=== PATIENT | female | born 2005 | race Two or more races ===

== ENCOUNTER 2024-03-30 15:01 | Observation (INO) | payer MEDICAID, SELFPAY ==
--- NOTE | 2024-03-24 08:34 | EKG_ITS ---
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
[2024-03-24 09:13] VITALS: BMI 36.8
[2024-03-24 10:01] LABS: Collection Type, Urine Clean Catch
[2024-03-24 10:09] LABS: Basophils # (Auto) 0.1 Thou/mm3 (0.0-0.2); Basophils % (Auto) 1 % (0-2.5); Eosinophils # (Auto) 0.5 Thou/mm3 (0.0-0.5); Eosinophils % (Auto) 6 % (0-10); Hematocrit 42.3 % (36.0-46.0); Hemoglobin 13.7 g/dL (12.0-16.0); Immature Granulocytes % (Auto) 0 % (0-0); Immature Granulocytes Auto 0.03 Thou/mm3 (0.00-0.00); Lymphocytes # (Auto) 1.9 Thou/mm3 (1.0-4.8); Lymphocytes % (Auto) 22 % (10-50); Mean Corpuscular HGB Conc 32.4 g/dl (31.0-37.0); Mean Corpuscular Hemoglobin 25.1 pg (25.0-35.0); Mean Corpuscular Volume 78 fL (80-100); Monocytes # (Auto) 0.8 Thou/mm3 (0.0-0.8); Monocytes % (Auto) 9 % (0-12); Neutrophils # (Auto) 5.5 Thou/mm3 (1.8-7.7); Neutrophils % (Auto) 63 % (37-80); Nucleated Red Blood Cell % 0 /100 WBC (0); Platelet Count 430 Thou/mm3 (140-440); Red Blood Count 5.45 Miln/mm3 (4.00-5.20); White Blood Count 8.8 Thou/mm3 (4.5-11.0)
[2024-03-24 10:15] LABS: Bacteria,Urine Rare; Bilirubin,Urine Negative (Negative); Blood,Urine 3+ (Negative); Color,Urine Yellow (Lt Yel-Yel); Glucose, Urine Negative (Negative); Ketones,Urine Negative (Negative); Leukocyte Esterase,Urine Positive (Negative); Nitrite,Urine Negative (Negative); PH,Urine 6.5 (5.0-7.0); Protein,Urine Trace (Neg - Trace); RBC,Urine 4 /hpf (0-3); Specific Gravity,Urine 1.017 (1.001-1.035); Squamous Epithelial Cell,Urine 19 /hpf (0-5); Urobilinogen,Urine Negative mg/dL (0.0-1.0); WBC,Urine 14 /hpf (0-5)
[2024-03-24 10:17] LABS: Partial Thromboplastin Time 26.4 Seconds (22.0-36.0); Prothrombin Time 11.4 Seconds (9.0-12.2)
[2024-03-24 10:32] LABS: Clarity,Urine Hazy (Clear/Hazy)
[2024-03-24 10:43] LABS: Alanine Aminotransferase 34 U/L (10-49); Albumin, Serum 4.6 gm/dL (3.5-5.0); Albumin/Globulin Ratio 1.5 (1.2-2.2); Alkaline Phosphatase 79 U/L (46-116); Anion Gap 6 (7-16); Aspartate Amino Transferase 21 U/L (0-34); BUN/Creatinine Ratio 8 Ratio (12-20); Bilirubin,Total 0.7 mg/dL (0.3-1.2); Blood Urea Nitrogen 6 mg/dL (9-23); Calcium 9.5 mg/dL (8.3-10.6); Calcium (Corrected) 9.5 mg/dL (8.5-10.1); Carbon Dioxide 25.2 mMol/L (20.0-31.0); Chloride 105 mMol/L (98-107); Creatinine (Component) 0.8 mg/dL (0.6-1.3); Globulin 3.1 gm/dL (2.3-3.5); Glucose 114 mg/dL (74-106); Osmolality,Calculated 270 (275-295); Potassium 3.7 mMol/L (3.4-5.1); Sodium 136 mMol/L (136-145); Total Protein 7.7 gm/dL (5.7-8.2); eGFR > 60 See Note
[2024-03-24 11:08] LABS: HCG,Qualitative Serum Negative
--- NOTE | 2024-03-28 19:23 | PD.SURHP ---
HPI Date of Admission 03/29/2024 Chief Complaint Chief Complaint: Refractory GERD interferring with work duties. HPI This 18 yearts old female is brought to operating room because of GERD that is unresponsive to medical management and she is missing work because of that. She will undergo laparoscopic antireflux procedure with diaphragmatic hernia repair with implantation of a patch and Scarlett fundoplication and rarely but possible laparotomy. Informed consent was obtained. Past Medical History Past Medical History NEUROLOGIC: Positive Migraine; Negative Neurological Disorders or Seizures CARDIAC: Negative Cardiac Disorders or Congestive Heart Failure RESPIRATORY: Positive Asthma (USES INHALER PRN. LAST USED A MONTH AGO); Negative Chronic Obstructive Pulmonary Disease (COPD) GASTROINTESTINAL: Positive Gastrointestinal Disorders (n/v diarrhea, occassional hearturn, FATTY LIVER), Hiatal Hernia and Gastroesophageal Reflux Disease; Negative Hepatitis GENITOURINARY: Positive Genitourinary Disorders (scarring left kidney, PCOS); Negative Renal Disease REPRODUCTIVE: Negative Previous Pregnancies MUSCULOSKELETAL: Positive Musculoskeletal Disorders, Arthritis and Fractures (LEFT FOOT - WORE BOOT) ENT: Positive History of ENT Problems (FLUID BEHIND EARS AT TIMES) ENDOCRINE: Positive Endocrine Disorders and Diabetes Mellitus Type 2 (DIET CONTROLLED); Negative Diabetes Mellitus Type 1 HEMATOLOGIC: Positive Blood Disorders and Anemia PSYCHO/SOCIAL: Positive Bipolar Disorder, Depression and Anxiety OTHER HISTORY: Negative Falls, Blood Transfusions, Anesthesia Reactions (na), Chicken Pox, Measles, Mumps or Cancer Family History FAMILY HISTORY: Negative Family Anesthesia Reaction Social History SMOKING STATUS: Never smoker Travel History EBOLA RISK: No Meds Home Medications and Allergies Home Medications ?Medication ?Instructions ?Recorded ?Confirmed ?Type fluoxetine 20 mg capsule 40 mg PO DAILY 12/02/23 03/24/24 History olanzapine 5 mg tablet 10 mg PO HS 12/02/23 03/24/24 History Allergies Allergy/AdvReac Type Severity Reaction Status Date / Time pineapple Allergy Severe Swelling Verified 03/24/24 09:10 of Lip/Tongue/Throat milk Allergy Intermediate Hives Verified 03/24/24 09:10 Exam Constitutional Constitutional: no acute distress Routine HEENT Exam Head: Present normocephalic Eye: Present EOMI and PERRL ENT: Present mucous membranes moist Routine Neck Exam Neck: Present supple and trachea midline Routine Chest/Breast/Axilla Exam Chest wall: Absent tenderness or mass Routine Respiratory Exam Respiratory: Present chest non-tender, lungs clear, normal breath sounds and no resp distress; Absent respiratory distress Routine Cardiovascular Exam Cardiovascular: Present RRR Routine Abdominal Exam Abdominal: Present soft and normoactive bowel sounds Routine Extremities Exam Extremities: Present full ROM Routine Skin Exam Skin: Present intact, dry and warm Routine Neurological Exam Neurological: Present alert, oriented X3 and CN II-XII intact Routine Psychiatric Exam Psychiatric: Present normal affect and normal thought process Results Results: Laboratory Laboratory results: results reviewed Assessment & Plan Problem List (1) Erosive gastroesophageal reflux disease: Status: Acute (2) Hernia, hiatal: Status: Acute Plan Laparoscopic Hiatal Hernia repair implantation of a patch and Laparoscopic Scarlett fundoplication. Possible laparotomy. Informed consent was obtained. Quality Measures Quality Measures VTE prophylaxis
[2024-03-29] VITALS (19 sets, daily range): BP systolic 95–130; BP diastolic 57–94; PULSE 69–103; RESP 12–20; TEMP 36.1–36.4; O2SAT 96–99; BMI 36.7
[2024-03-29] MEDS: RINGERS LACTATED 1000 ML 1,000 ML 20 ML IV (07:02)
--- NOTE | 2024-03-29 11:00 | PD.SUROPNT ---
Date of Procedure 03/29/24 Pre Op Diagnosis Refractory gastroesophageal reflux and hiatal hernia Post Op Diagnosis Same. Procedure Laparoscopic diaphragmatic hernia repair with implantation of a phasic ST patch and 360 degree Scarlett fundoplication on March 29, 2024 Findings This patient had a 5 cm hiatal hernia. There were no other identifiable remarkable findings. Procedure Description Patient was interviewed in the preop holding area and the procedure was discussed in detail. Risk benefits and alternatives were also discussed and informed consent is obtained. The patient was then brought to the operating room by the nursing staff. The patient was positioned in supine position on the operating table. Gen. anesthesia was administered in a satisfactory manner. The patient was positioned in the modified lithotomy position in the [facility]. Patient was given prophylactic IV antibiotics half an hour before the procedure started. The Flowtron's are applied to both legs is anti-embolism mechanism. The chest abdomen and genitalia and the legs are prepped and draped in usual manner. An open laparoscopic procedure is carried out and balloon cannula is inserted through the supraumbilical incision. There were adhesions to the peritoneal side of the linea alba and lysis of adhesions was required to insert the balloon cannula. After that the pneumoperitoneum is achieved. The patient is positioned in the reverse Trendelenburg position. The 30? scope is used. Under direct vision a 5 mm cannula is inserted in the subxiphoid location, 10 mm cannula is inserted in the left midclavicular location, a 10 mm cannula is inserted in the left anterior axillary line and a 5 mm cannula is inserted in the right midclavicular line. A Perfecto retractor is used through the subxiphoid incision to retract the left lobe of the liver to the right side. The harmonic ultrasonic yvan are used to divide the gastrohepatic omentum. The dissection is carried out towards the diaphragmatic hiatus and the esophago-phrenic gastrophrenic and gastrosplenic ligaments are divided with the harmonic ultrasonic yvan. A retroesophageal window is created protecting the posterior vagus nerve and an umbilical tape is passed around the esophagus to be used as a retractor. Further dissection is carried out in the posterior mediastinum and the esophagus is further freed from the mediastinal structures and the esophagus is pulled down into the abdomen. The greater curvature of the stomach is examined and the short gastric vessels on the greater curvature were divided with harmonic ultrasonic yvan. The gastrosplenic ligaments are divided in a similar manner and the gastropancreatic ligaments are divided. After the greater curvature and the fundus is freed completely the examination is carried out in the retroesophageal space and small ligaments are divided. The hemostasis is already achieved. The hiatal hernia defect is examined carefully and it is repaired by intra and extracorporeal technique with a 3-0 Ethibond interrupted sutures. The diaphragmatic repair is carried out posterior to the esophagus. Enough space his left around the esophagus to avoid obstruction. At this point phasic's ST bioabsorbable patch was used and tailored in place and placed in an onlay manner over the diaphragmatic repair and sutured in place. Multiple sutures were taken on both the side of the esophagus between the diaphragm and the patch and also patch was sutured over the diaphragmatic repair. Now the Scarlett 360? fundoplication is carried out. The orogastric tube is removed and a 56 Luxembourgish Lord dilator is inserted into the esophagus and stomach by the anesthesiologist. This is used as an internal stent for calibration of the lumen. Now the freed fundus is brought around the esophagus from the left side behind the esophagus to the front on the right side and it is sutured to the left side of the fundus by intracorporeal and extracorporeal techniques using a 3-0 Ethibond interrupted sutures. There are 3 sutures placed to complete the fundoplication. The sutures passed through right and left side of the fundus as well as anterior wall of the esophagus. The Lord dilator is removed. Multiple Lembert stitchs are taken between the right and left side of the fundus to the esophagus. The operative field is thoroughly irrigated with saline solution and the hemostasis is achieved. The umbilical tape is divided and it is removed. The Interceed an anti-adhesion barrier is placed between the liver and the stomach. The Perfecto retractor is removed under direct vision. All the cannulas are removed under laparoscopic vision and there is no bleeding from the cannula site incisions. The balloon cannula is removed and the pneumoperitoneum is allowed to escape. The midline incision is closed in layers. The fascia is approximated by 2-0 Vicryl continuous sutures. The subcutaneous tissue is approximated by 3-0 chromic suture and the skin is approximated by 4-0 nylon interrupted sutures. The trocar site incisions are closed with the 3-0 chromic and a 4-0 nylon stitches. Sterile dressings are applied. The patient tolerated the procedure very well and is transferred to the recovery room in satisfactory condition. Anesthesia GETA Drains None. Implants Phasic ST patch over the diaphragm Pathology / specimen None Estimated Blood Loss 5 Condition Stable Disposition PACU Surgeon Sathish Dougherty MD Surgical Staff Operation Date: 03/29/24 07:30 Case Staff TEACHING AIDE: Aaron Brown RN First Assistant: Ilia Swenson RN pipe covering molder Amarilis surgical scheduler
--- NOTE | 2024-03-29 11:10 | SUR.PHASEI ---
pt received from OR in recovery bay 8. pt asleep but responds to voice, breathing unlabored on room air. v/s stable. pt dressing to abd x5 cdi. report received from Lowell BAUTISTA and Griselda APPIAH.
--- NOTE | 2024-03-29 13:26 | SUR.PHASEII ---
pt resting comfortably in bed, breathing unlabored, VS stable, dressing abdomen clean, dry, and intact, report from Stefan APPIAH
--- NOTE | 2024-03-29 14:05 | SUR.PHASEII ---
report to Stefan APPIAH
[2024-03-29] MEDS: ACETAMINOPHEN IVPB 1,000 MG/100 ML VIAL 250 MG IV ×2 (16:07→22:07)
--- NOTE | 2024-03-29 16:50 | SUR.PHASEII ---
pt awake and alert, breathing unlabored on room air. v/s stable. pt dressing to abd x5 cdi. report called to Jeannine Johnson RN. pt will be transferred to room at this time.
--- NOTE | 2024-03-29 16:52 | PC.NURSE ---
Patient arrived to unit from PACU via [facility] at 1652. Patient transferred from [facility] to bed with some assistance, no c/o pain or nausea. Patient made comfortable in bed, call light and personal belongings placed within reach. Carrillo catheter in place. 5 lap incisions in abdomen w/ steri strips in place, open to air.
[2024-03-29] MEDS: RINGERS LACTATED 1000 ML 1,000 ML 50 ML IV (17:51)
[2024-03-29] MEDS: HYDROmorphone INJ 2 MG/ML VIAL 1 MG IVP ×2 (18:03→22:06)
[2024-03-29] MEDS: GABAPENTIN 100 MG CAPSULE 200 MG PO (22:06)
[2024-03-29] MEDS: OLANZapine 5 MG TABLET 10 MG PO (22:06)
[2024-03-30] VITALS: BP 95/55; PULSE 73; RESP 16; TEMP 36.6; O2SAT 96
[2024-03-30] MEDS: HYDROcodone/APAP 10/325 TAB PO ×3 (01:39→16:12)
[2024-03-30] MEDS: ACETAMINOPHEN IVPB 1,000 MG/100 ML VIAL 250 MG IV ×2 (03:45→16:13)
[2024-03-30 04:00] VITALS: BP 117/80; PULSE 96; RESP 18; TEMP 36.2; O2SAT 95
[2024-03-30] MEDS: HYDROmorphone INJ 2 MG/ML VIAL 1 MG IVP ×2 (07:43→11:58)
[2024-03-30 08:00] VITALS: BP 112/64; PULSE 82; RESP 18; TEMP 36.3; O2SAT 95
[2024-03-30] MEDS: GABAPENTIN 100 MG CAPSULE 200 MG PO ×2 (08:49→20:33)
[2024-03-30] MEDS: FLUoxetine HCL 10 MG CAPSULE 40 MG PO (08:49)
--- NOTE | 2024-03-30 10:19 | PD.SURPROG ---
Documentation for date of: 03/30/24 Subjective Subjective Brief History: This 18 yearts old female is brought to operating room because of GERD that is unresponsive to medical management and she is missing work because of that. She will undergo laparoscopic antireflux procedure with diaphragmatic hernia repair with implantation of a patch and Scarlett fundoplication and rarely but possible laparotomy. Informed consent was obtained. 03/30/2024 postop day 1. S/p laparoscopic hiatal hernia repair and Scarlett fundoplication. Patient has been having pain she is requiring IV narcotics for the pain management. Carrillo catheter is still in place and this will be discontinue will encourage the patient to get out of the bed and ambulate. She is tolerating full liquid diet well without any trouble she can tell there is no reflux. She is still requiring monitoring for pain. Exam Vital Signs Temp Pulse Resp BP Pulse Ox O2 Del Method 97.3 F 82 18 112/64 95 Room Air 03/30/24 08:00 03/30/24 08:00 03/30/24 08:00 03/30/24 08:00 03/30/24 08:00 03/30/24 08:00 Narrative Exam Cardiopulmonary exam is normal abdomen is soft and nontender dressings are in place extremities unremarkable there were no other remarkable physical findings Assessment & Plan Diagnosis (1) Hernia, hiatal: Status: Acute (2) Erosive gastroesophageal reflux disease: Status: Acute Plan Discontinue Carrillo catheter continue with the IV narcotic pain management with Dilaudid and try to switch over to oral pain medication hydrocodone. To get out of the bed and ambulate in the hallways with assistance. Discharge planning in 1 to 2 days. Procedures Procedure Date 03/29/24 Procedures Laparoscopic diaphragmatic hernia repair with implantation of a phasic ST patch and 360 degree Scarlett fundoplication on March 29, 2024
[2024-03-30 12:00] VITALS: BP 98/59; PULSE 78; RESP 18; TEMP 36.6; O2SAT 98
--- NOTE | 2024-03-30 13:27 | CHAP ---
09:30 AM Visited by spiritual care volunteer Provided prayer for Patient.
[2024-03-30] MEDS: ONDANSETRON INJ 2 MG/ML INJ 2 ML 4 MG IV (13:40)
--- NOTE | 2024-03-30 13:40 | PC.SS ---
SS met with patient regarding her d/c plan. Pt is alert/oriented. Pt was admitted for LAP Hiatal [id number]. Pt confirmed demographic and contact information is correct on facesheet. Pt resides with mom and sister. 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 Pt ambulates independently without assistance or DME. Pt is ok with all ADLs. Pt named her life partner, Conrado Nielson medical decision maker if she is unable. Patient?s choice is to return home upon d/c. Pt does not have an advance directive, SS offered, and pt declined. Pt states she is diabetic, has glucometer, and test strips. Pt states she is not on dialysis. Pt states she last followed up with PCP last month. D/C plan: Return home Next of Kin: Conrado Nielson, friend, phone# [phone] PCP: Dr. Calista Neumann from [facility] Address: Correct on facesheet
[2024-03-30 16:00] VITALS: BP 99/61; PULSE 78; RESP 18; TEMP 36.7; O2SAT 97
--- NOTE | 2024-03-30 18:04 | PC.NURSE ---
Dr Dougherty in to see and assess patient. Will monitor overnight and plan for discharge in the morning if all is well. Discharge instructions discussed. All questions answered.
--- NOTE | 2024-03-30 18:11 | ESDS_ITS ---
Planned Discharge Date 03/31/24 DS: Providers Provider Date of admission: 03/30/24 15:01 Primary care physician: MARIE Conte Admitting Provider: Sathish Dougherty MD Attending Provider on Admission: Sathish Dougherty MD Attending Provider on DC: Sathish Dougherty MD Discharging Provider: Sathish Dougherty MD Diagnosis Discharge Diagnosis (1) S/P laparoscopic fundoplication: Status: Acute (2) Postoperative pain: Status: Acute (3) Hernia, hiatal: Status: Acute (4) Erosive gastroesophageal reflux disease: Status: Acute Problem List Completed Was Problem List Reviewed/Reconciled?: Yes Hospital Course This 18-year-old female was admitted to the hospital for laparoscopic hiatal hernia repair with implantation of a patch and Scarlett fundoplication. Postoperatively she was admitted to the hospital as she required IV narcotics for pain control. She was started on clear liquid diet and advance to full liquid diet as tolerated. She required Carrillo catheter for 24 hours of the Carrillo catheter was discontinued. She was a little bit slow in getting out of the bed and required assistance to get out of the bed and ambulate in the room and then also in the hallways for the next 24 to 36 hours. Gradually the pain medication was tapered and oral nonnarcotic medications were started she tolerated that reasonably well and was able to get out of the bed and therefore she was discharged home in improved condition. She can tell that she does not have any acid reflux anymore that makes her quite happy. Her condition is markedly improved and she will follow-up in my office within 7 to 10 days. Status at Discharge Functional status at discharge: independent ambulation Overall status at discharge: patient is progressing back to baseline Exam Vital Signs Temp Pulse Resp BP Pulse Ox O2 Del Method 98.1 F 78 18 99/61 97 Room Air 03/30/24 16:00 03/30/24 16:00 03/30/24 16:00 03/30/24 16:00 03/30/24 16:00 03/30/24 16:00 Narrative Exam Abdomen is soft and nontender with incisional tenderness without any infection or hyperemia or drainage. Cardiopulmonary examination is unremarkable extremities are unremarkable. Discharge Plan Plan Patient Disposition: HOME (Self Care) Disposition Comment: follow up in office in 10 days Prescriptions/Referrals Prescriptions/Med Rec: New ibuprofen 800 mg tablet 800 mg PO Q8H PRN (Reason: pain) Qty: 60 0RF hydrocodone-acetaminophen 10-325 mg tablet 1 tab PO Q6H MDD 4 PRN (Reason: pain) Qty: 28 0RF Continued olanzapine 5 mg tablet 10 mg PO HS Patient Comments: take 1 tablet by mouth every evening fluoxetine 20 mg capsule 40 mg PO DAILY Patient Comments: take 1 capsule by mouth every morning Referrals: Calista Neumann FNP-C [Primary Care Provider] - Sathish Dougherty MD [Physician] - Patient/Caregiver Discharge Instructions Other Discharge Activity Instructions:: Not to lift more than 10 lbs. for 3 months. Other Discharge Diet Instructions: Liquid diet for 10 days Education Materials: Preventing Surgical Site Infections Print Language: Montserratian Stand Alone Forms: Kathy Award Info., Patient Portal Info Letter, Work/Release Restrictions, DC from Surgery Discharge Order Discharge Orders: Discharge (Routine); Ordered 03/31/24 Ordered By: Sathish Dougherty Procedures Procedure Date 03/29/24 Procedures Laparoscopic diaphragmatic hernia repair with implantation of a phasic ST patch and 360 degree Scarlett fundoplication on March 29, 2024
[2024-03-30] MEDS: KETOROLAC INJ 30 MG/ML VIAL IVP (18:24)
[2024-03-30 20:00] VITALS: BP 99/64; PULSE 83; RESP 18; TEMP 36.6; O2SAT 97
[2024-03-30] MEDS: OLANZapine 5 MG TABLET 10 MG PO (20:34)
[2024-03-31] VITALS: BP 92/58; PULSE 86; RESP 17; TEMP 36.8; O2SAT 96
[2024-03-31 04:00] VITALS: BP 119/68; PULSE 75; RESP 18; TEMP 36.5; O2SAT 98
[2024-03-31] MEDS: HYDROcodone/APAP 10/325 TAB PO (04:51)
--- NOTE | 2024-03-31 07:42 | PC.NURSE ---
Pt has discharge orders, per patient she has transportation but they will not be available until 1100.
[2024-03-31 08:00] VITALS: BP 96/63; PULSE 76; RESP 18; TEMP 36.3; O2SAT 98
[2024-03-31] MEDS: GABAPENTIN 100 MG CAPSULE 200 MG PO (09:44)
[2024-03-31] MEDS: FLUoxetine HCL 10 MG CAPSULE 40 MG PO (09:45)
== END 2024-03-31 11:42 | disposition home or self-care (01) ==
LOC: S3NX 18:06 → S2EX 03-31 06:06 → S3NX 03-31 06:07
PROVIDERS: Anesthesiology; Admitting Provider Specialist; PCP Nurse Practitioner Family; Referring Provider Specialist; Visit Provider Specialist
PROC: 0DV44ZZ Restriction of Esophagogastric Junction, Percutaneous Endoscopic Approach (ICD-10-PCS; CPT 43280; principal; 2024-03-29 07:30)
DX: K44.9 Diaphragmatic hernia without obstruction or gangrene (principal); K76.0 Fatty (change of) liver, not elsewhere classified; K21.9 Gastro-esophageal reflux disease without esophagitis; F41.9 Anxiety disorder, unspecified; G89.18 Other acute postprocedural pain; F31.9 Bipolar disorder, unspecified; E11.9 Type 2 diabetes mellitus without complications; Z01.810 Encounter for preprocedural cardiovascular examination
CPT/HCPCS: 43281; 36415; 80053; 81001; 84702; 84703; 85025; 85610; 85730; 93005; 96361; 96365; 96366; 96375; A4217; A4649; C1781; G0378; J0131; J0694; J1885; J2250; J2405; J2704; J3010; J3490; J7120; A9270; J1596; J1920

== ENCOUNTER 2024-05-08 15:20 | Day surgery (SDC) | payer MEDICAID, SELFPAY ==
[2024-05-08] VITALS (10 sets, daily range): BP systolic 95–146; BP diastolic 58–103; PULSE 57–113; RESP 11–27; TEMP 37–37.3; O2SAT 96–100; BMI 36.6
--- NOTE | 2024-05-08 15:37 | EDNOTE_ITS ---
Nausea/Vomit./Diarrhea-RME/HPI General Chief complaint: Nausea/Vomiting/Diarrhea Stated complaint: VOMITING SINCE 04/08 S/P HERNIA SURGERY 03/29/24 Time Seen by Provider: 05/08/24 15:22 Arrival date/time: 05/08/24 15:20 18-year-old male presents to the emergency department today since she had a hernia surgery 03/29 patient reports he been vomiting since 04/08 patient reports she has been following up with her surgeon who referred to ER today for emergent endoscopy and further treatment Limitations: no limitations Related Data Home Medications ?Medication ?Instructions ?Recorded ?Confirmed fluoxetine 20 mg capsule 40 mg PO DAILY 12/02/23 03/29/24 olanzapine 5 mg tablet 10 mg PO HS 12/02/23 03/29/24 Previous Rx's ?Medication ?Instructions ?Recorded hydrocodone 10 mg-acetaminophen 1 tab PO Q6H PRN pain #28 tabs 03/30/24 325 mg tablet ibuprofen 800 mg tablet 800 mg PO Q8H PRN pain #60 tabs 03/30/24 Allergies Allergy/AdvReac Type Severity Reaction Status Date / Time milk Allergy Severe Hives Verified 05/08/24 15:23 pineapple Allergy Severe Swelling Verified 03/29/24 06:45 of Lip/Tongue/Throat Review of Systems Review of Systems Systems Reviewed: All systems reviewed, normal except as documented Constitutional Constitutional: Reports system reviewed and no additional complaints, except as documented, Denies fever(s) and Denies headache(s) Eyes Eyes: Reports system reviewed and no additional complaints, except as documented and Denies blurry vision ENT Ears, Nose, Mouth, and Throat: Reports system reviewed and no additional complaints, except as documented, Denies headache(s), Denies nasal congestion and Denies nasal discharge Cardiovascular Cardiovascular: Reports system reviewed and no additional complaints, except as documented, Denies chest pain and Denies dyspnea Respiratory Respiratory: Reports system reviewed and no additional complaints, except as documented, Denies chest congestion, Denies cough and Denies dyspnea Gastrointestinal Gastrointestinal: Reports system reviewed and no additional complaints, except as documented, Reports abdominal pain, Reports nausea and Reports vomiting Genitourinary Genitourinary: Reports system reviewed and no additional complaints, except as documented Integumentary/Breasts Skin/Breast: Reports system reviewed and no additional complaints, except as documented and Denies rash Neurologic Neurologic: Reports system reviewed and no additional complaints, except as documented, Reports as per HPI and Denies headache(s) Past Medical History Past Medical History NEUROLOGIC: Positive Neurological Disorders and Migraine; Negative Seizures CARDIAC: Negative Cardiac Disorders or Congestive Heart Failure RESPIRATORY: Positive Asthma; Negative Chronic Obstructive Pulmonary Disease (COPD) GASTROINTESTINAL: Positive Gastrointestinal Disorders, Hiatal Hernia and Gastroesophageal Reflux Disease; Negative Hepatitis GENITOURINARY: Negative Genitourinary Disorders or Renal Disease REPRODUCTIVE: Negative Previous Pregnancies MUSCULOSKELETAL: Positive Musculoskeletal Disorders and Fractures (Left and right foot); Negative Arthritis ENDOCRINE: Positive Endocrine Disorders and Diabetes Mellitus Type 2; Negative Diabetes Mellitus Type 1 HEMATOLOGIC: Positive Blood Disorders and Anemia PSYCHO/SOCIAL: Positive Bipolar Disorder, Depression and Anxiety OTHER HISTORY: Negative Hospitalization, Autoimmune Disease, Down Syndrome, Developmental Delay, Shingles, Falls, Blood Transfusions, Blood Transfusion Reaction, Anesthesia Reactions, Human Immunodeficiency Virus (HIV), Chicken Pox, Measles, Mumps, Rubella ([place]wana Measles), Pertussis or Cancer Family History FAMILY HISTORY: Negative Family Anesthesia Reaction Social History SMOKING STATUS: Never smoker SECOND HAND EXPOSURE: No ED Exam General Limitations: Present no limitations General appearance: Present alert and in no apparent distress Head Head exam: Present atraumatic, normocephalic and normal inspection Eye Eye exam: Present normal appearance, PERRL and EOMI; Absent conjunctival injection ENT ENT exam: Present normal exam, normal oropharynx and mucous membranes moist Neck Neck exam: Present normal inspection, full ROM and trachea midline Chest Chest inspection: Present normal inspection and symmetric chest wall rise Respiratory Respiratory exam: Present normal lung sounds bilaterally; Absent respiratory distress Cardiovascular Cardiovascular exam: Present regular rate, normal rhythm and normal heart sounds Abdominal Exam Abdominal exam: Present soft and normal bowel sounds; Absent distention, tenderness, guarding, rebound, rigidity, Sevilla's sign or tenderness at McBurney's Point Abdominal tenderness: Absent RUQ or RLQ Extremities Exam Extremities exam: Present normal inspection and full ROM Back Exam Back exam: Present normal inspection and full ROM Neurological Exam Neurological exam: Present alert, oriented X3 and CN II-XII intact Psychiatric Psychiatric exam: Present normal affect and normal mood Skin Skin exam: Present warm, dry, intact and normal color Course Quality Measures none Orders Category Date Time Status COVID-19 Screening Questionnaire NOW Care 05/08/24 15:32 Active Decision to Admit X1 Care 05/08/24 15:32 Active Insert IV NOW Care 05/08/24 15:32 Active Consult to General Surgery Stat Cons 05/08/24 15:32 Ordered CBC Stat Lab 05/08/24 15:32 Ordered Comprehensive Metabolic Panel Stat Lab 05/08/24 15:32 Ordered Lipase Stat Lab 05/08/24 15:32 Ordered Partial Thromboplastin Time Stat Lab 05/08/24 15:32 Ordered Prothrombin Time with INR Stat Lab 05/08/24 15:32 Ordered Type and Screen Stat Lab 05/08/24 15:36 Ordered Vital Signs Vital signs: Vital Signs Temperature 99 F 05/08/24 15:30 Pulse Rate 78 05/08/24 15:30 Respiratory Rate 16 05/08/24 15:30 Blood Pressure 105/75 05/08/24 15:30 Pulse Oximetry (%) 96 05/08/24 15:30 Oxygen Delivery Method Room Air 05/08/24 15:30 O2 saturation 96% room air within normal limits Nausea/Vomiting/Diarrhea MDM Narrative MDM Narrative:: 18-year-old male presents to the emergency department today since she had a hernia surgery 03/29 patient reports he been vomiting since 04/08 patient reports she has been following up with her surgeon who referred to ER today for emergent endoscopy and further treatment On exam patient well-appearing patient does not appear ill or toxic in no acute distress Preop labs obtained Consultation: I spoke with Dr. Dougherty he will admit the patient for endoscopy At time of admission patient no distress Patient data External records reviewed:: [facility] previous records Clinical information provided by:: patient Social determinants that could affect healthcare access:: none Patient has the following chronic illnesses:: None How is presenting disease/condition affected by chronic disease/condition?: caused by Evaluation data The following diagnostics were reviewed and interpreted by me:: lab results Lab and/or radiology exams considered but not ordered:: Labs obtained Interpretation Summary: Reviewed by me Medications / Prescriptions Medications / Prescriptions considered but not ordered:: Given no meds Medication administrations:: No meds given Consultations Consultation(s) initiated? (list below): Yes Consultation #1 (Physician, Specialty, Details): Dr. Dougherty Diagnosis Nausea Differential Diagnosis: gastroenteritis, dehydration and other (Nausea vomiting) Most likely diagnosis given after review of the tests above:: Nausea vomiting Admission Indicated Admission indicated?: indicated Admission Request Was there a request for admission?: Yes Admission Attestation Admission request attestation: Discussed case with Dr. Dougherty Disposition Plan Disposition Plan: Admit Discharge Plan Plan Patient Disposition: Admit Acute Care w/in Hospital Disposition Comment: Stable Prescriptions/Referrals Prescriptions/Med Rec: No Action olanzapine 5 mg tablet 10 mg PO HS Patient Comments: take 1 tablet by mouth every evening fluoxetine 20 mg capsule 40 mg PO DAILY Patient Comments: take 1 capsule by mouth every morning ibuprofen 800 mg tablet 800 mg PO Q8H PRN (Reason: pain) Qty: 60 0RF hydrocodone-acetaminophen 10-325 mg tablet 1 tab PO Q6H MDD 4 PRN (Reason: pain) Qty: 28 0RF Problem List Clinical Impression: Nausea & vomiting, Abdominal pain Patient/Caregiver Discharge Instructions Education Materials: Abdominal Pain Print Language: [place] Stand Alone Forms: Kathy Award Info., Patient Portal Info Letter PA/CRM SYSTEM ADMINISTRATOR Supervising Physician PA/CRM SYSTEM ADMINISTRATOR Supervising Physician: Dr. Ramires
--- NOTE | 2024-05-08 16:27 | PC.NURSE ---
Per patient was instructed by surgeon to come to ED for admission for poss EGD. Patient states had recent hiatal hernia repair and has been vomiting with mid upper gastric abd pain and diarrhea. Patient is alert and oriented, ambulatory with family at bedside. Patient updated on admission status and poss EGD procedure today, will keep NPO. Per patient last drink of water was 1 am, and has not eaten any food since yesterday. Placed call light within reach.
[2024-05-08 16:35] LABS: Basophils # (Auto) 0.1 Thou/mm3 (0.0-0.2); Basophils % (Auto) 1 % (0-2.5); Eosinophils # (Auto) 0.1 Thou/mm3 (0.0-0.5); Eosinophils % (Auto) 1 % (0-10); Hematocrit 46.7 % (36.0-46.0); Hemoglobin 14.9 g/dL (12.0-16.0); Immature Granulocytes % (Auto) 0 % (0-0); Immature Granulocytes Auto 0.02 Thou/mm3 (0.00-0.00); Lymphocytes # (Auto) 1.8 Thou/mm3 (1.0-4.8); Lymphocytes % (Auto) 20 % (10-50); Mean Corpuscular HGB Conc 31.9 g/dl (31.0-37.0); Mean Corpuscular Hemoglobin 24.8 pg (25.0-35.0); Mean Corpuscular Volume 78 fL (80-100); Monocytes # (Auto) 0.6 Thou/mm3 (0.0-0.8); Monocytes % (Auto) 7 % (0-12); Neutrophils # (Auto) 6.3 Thou/mm3 (1.8-7.7); Neutrophils % (Auto) 71 % (37-80); Nucleated Red Blood Cell % 0 /100 WBC (0); Platelet Count 397 Thou/mm3 (140-440); Red Blood Count 6.01 Miln/mm3 (4.00-5.20); White Blood Count 8.9 Thou/mm3 (4.5-11.0)
[2024-05-08 16:39] LABS: Alanine Aminotransferase 36 U/L (10-49); Albumin, Serum 5.1 gm/dL (3.5-5.0); Albumin/Globulin Ratio 1.5 (1.2-2.2); Alkaline Phosphatase 80 U/L (46-116); Anion Gap 13 (7-16); Aspartate Amino Transferase 20 U/L (0-34); BUN/Creatinine Ratio 7 Ratio (12-20); Bilirubin,Total 0.6 mg/dL (0.3-1.2); Blood Urea Nitrogen 5 mg/dL (9-23); Calcium 10.1 mg/dL (8.3-10.6); Calcium (Corrected) 10.1 mg/dL (8.5-10.1); Carbon Dioxide 22.5 mMol/L (20.0-31.0); Chloride 107 mMol/L (98-107); Creatinine (Component) 0.7 mg/dL (0.6-1.3); Estimated Creatinine Clearance 134.3 mL/min (>60); Globulin 3.4 gm/dL (2.3-3.5); Glucose 99 mg/dL (74-106); Lipase 45 U/L (12-53); Osmolality,Calculated 280 (275-295); Potassium 3.3 mMol/L (3.4-5.1); Sodium 142 mMol/L (136-145); Total Protein 8.5 gm/dL (5.7-8.2); eGFR > 60 See Note
[2024-05-08 16:42] LABS: INR 1.1 (0.9-1.3); Partial Thromboplastin Time 26.5 Seconds (22.0-36.0); Prothrombin Time 11.5 Seconds (9.0-12.2)
--- NOTE | 2024-05-08 16:49 | PD.SURHP ---
HPI Date of Admission 05/08/2024 Chief Complaint Chief Complaint: Dysphagia status post fundoplication food getting stuck in the esophagus HPI This 18-year-old female had laparoscopic Scarlett fundoplication approximately 1 month ago and for past couple of weeks she has been increasing her diet to see if something got stuck so she is not able to eat and some of the food is no regurgitating she will be evaluated with upper GI endoscopy and removal of foreign body and dilatation. Informed consent was obtained. Review of Systems Constitutional Constitutional: Denies headache(s) ENT Ears, Nose, Mouth, and Throat: Denies headache(s) Neurologic Neurologic: Reports system reviewed and no additional complaints, except as documented, Reports as per HPI and Denies headache(s) Past Medical History Past Medical History NEUROLOGIC: Positive Neurological Disorders and Migraine; Negative Seizures CARDIAC: Negative Cardiac Disorders or Congestive Heart Failure RESPIRATORY: Positive Asthma; Negative Chronic Obstructive Pulmonary Disease (COPD) GASTROINTESTINAL: Positive Gastrointestinal Disorders, Hiatal Hernia and Gastroesophageal Reflux Disease; Negative Hepatitis GENITOURINARY: Negative Genitourinary Disorders or Renal Disease REPRODUCTIVE: Negative Previous Pregnancies MUSCULOSKELETAL: Positive Musculoskeletal Disorders and Fractures; Negative Arthritis ENDOCRINE: Positive Endocrine Disorders and Diabetes Mellitus Type 2; Negative Diabetes Mellitus Type 1 HEMATOLOGIC: Positive Blood Disorders and Anemia PSYCHO/SOCIAL: Positive Bipolar Disorder, Depression and Anxiety OTHER HISTORY: Negative Hospitalization, Autoimmune Disease, Down Syndrome, Developmental Delay, Shingles, Falls, Blood Transfusions, Blood Transfusion Reaction, Anesthesia Reactions, Human Immunodeficiency Virus (HIV), Chicken Pox, Measles, Mumps, Rubella ([place] Measles), Pertussis or Cancer Family History FAMILY HISTORY: Negative Family Anesthesia Reaction Surgical History SURGICAL: Positive Abdominal Surgery Social History SMOKING STATUS: Never smoker SECOND HAND EXPOSURE: No Meds Home Medications and Allergies Home Medications ?Medication ?Instructions ?Recorded ?Confirmed ?Type fluoxetine 20 mg capsule 40 mg PO DAILY 12/02/23 03/29/24 History olanzapine 5 mg tablet 10 mg PO HS 12/02/23 03/29/24 History Allergies Allergy/AdvReac Type Severity Reaction Status Date / Time milk Allergy Severe Hives Verified 05/08/24 15:23 pineapple Allergy Severe Swelling Verified 03/29/24 06:45 of Lip/Tongue/Throat Exam Vital Signs Temp Pulse Resp BP Pulse Ox O2 Del Method 99 F 78 16 105/75 96 Room Air 05/08/24 15:30 05/08/24 15:30 05/08/24 15:30 05/08/24 15:30 05/08/24 15:30 05/08/24 15:30 Constitutional Constitutional: no acute distress Routine HEENT Exam Head: Present normocephalic Eye: Present EOMI and PERRL ENT: Present mucous membranes moist Routine Neck Exam Neck: Present supple and trachea midline Routine Chest/Breast/Axilla Exam Chest wall: Absent tenderness or mass Routine Respiratory Exam Respiratory: Present chest non-tender, lungs clear, normal breath sounds and no resp distress; Absent respiratory distress Routine Cardiovascular Exam Cardiovascular: Present RRR Routine Abdominal Exam Abdominal: Present soft and normoactive bowel sounds Comments: There are healing laparoscopic fundoplication incisions abdomen is soft and nontender bowel tones are normal. Routine Extremities Exam Extremities: Present full ROM Routine Skin Exam Skin: Present intact, dry and warm Routine Neurological Exam Neurological: Present alert, oriented X3 and CN II-XII intact Routine Psychiatric Exam Psychiatric: Present normal affect and normal thought process Results Results: Laboratory Laboratory results: results reviewed Assessment & Plan Problem List (1) Dysphagia: Status: Acute (2) S/P laparoscopic fundoplication: Status: Acute (3) Foreign body in esophagus: Status: Acute Plan Upper GI endoscopy and removal of foreign body and dilatation. Risk benefits alternatives were discussed with the patient and informed consent is obtained. Quality Measures Quality Measures none
[2024-05-08 17:09] LABS: HCG,Qualitative Serum Negative
--- NOTE | 2024-05-08 17:11 | PC.NURSE ---
RN reported to Kary Moreno,, patient will transfer to Endo for procedure and then will return to ED after recovery.
== END 2024-05-08 19:21 | disposition home or self-care (01) ==
LOC: SERX 16:14 → S2EX 17:08
PROVIDERS: Nurse Practitioner Primary Care; Emergency Provider Emergency Medicine; PCP Nurse Practitioner Family; Referring Provider Specialist; Visit Provider Specialist
PROC: (CPT 43239; principal; 2024-05-08 17:00)
DX: K31.89 Other diseases of stomach and duodenum (principal); E11.9 Type 2 diabetes mellitus without complications; F31.9 Bipolar disorder, unspecified; F41.9 Anxiety disorder, unspecified; J45.909 Unspecified asthma, uncomplicated; K21.9 Gastro-esophageal reflux disease without esophagitis
CPT/HCPCS: 43235; 36415; 80053; 83690; 84703; 85025; 85610; 85730; 86850; 86900; 86901; 99285; J1200; J2250; J2405; J3010; A9270

== ENCOUNTER 2024-06-29 18:57 | Emergency (ER) | payer MEDICAID, SELFPAY ==
[2024-06-29 19:37] VITALS: BP 110/78; PULSE 103; RESP 18; TEMP 37.3; O2SAT 97; BMI 29.3
--- NOTE | 2024-06-29 19:50 | PD.EDRME ---
Rapid Medical Screening Exam [facility] Arrival date/time: 06/29/24 18:57 18F with history of hernia surgery several months ago (Dr. Dougherty) presents to ED with request for IVF and CT chest/ab/pelvis (ordered outpatient) for N/V and weight loss since the surgery because she can't keep oral intake down. Zofran/Reglan provide minimal relief. Chief Complaint: Nausea/Vomiting/Diarrhea Vital signs: Vital Signs Temperature 99.1 F 06/29/24 19:37 Pulse Rate 103 H 06/29/24 19:37 Respiratory Rate 18 06/29/24 19:37 Blood Pressure 110/78 06/29/24 19:37 Pulse Oximetry (%) 97 06/29/24 19:37 Oxygen Delivery Method Room Air 06/29/24 19:37
[2024-06-29 20:35] LABS: Basophils # (Auto) 0.1 Thou/mm3 (0.0-0.2); Basophils % (Auto) 1 % (0-2.5); Eosinophils # (Auto) 0.1 Thou/mm3 (0.0-0.5); Eosinophils % (Auto) 1 % (0-10); Hematocrit 42.5 % (36.0-46.0); Hemoglobin 13.7 g/dL (12.0-16.0); Immature Granulocytes % (Auto) 0 % (0-0); Immature Granulocytes Auto 0.02 Thou/mm3 (0.00-0.00); Lymphocytes # (Auto) 2.3 Thou/mm3 (1.0-4.8); Lymphocytes % (Auto) 29 % (10-50); Mean Corpuscular HGB Conc 32.2 g/dl (31.0-37.0); Mean Corpuscular Hemoglobin 24.8 pg (25.0-35.0); Mean Corpuscular Volume 77 fL (80-100); Monocytes # (Auto) 0.7 Thou/mm3 (0.0-0.8); Monocytes % (Auto) 9 % (0-12); Neutrophils # (Auto) 4.9 Thou/mm3 (1.8-7.7); Neutrophils % (Auto) 61 % (37-80); Nucleated Red Blood Cell % 0 /100 WBC (0); Platelet Count 326 Thou/mm3 (140-440); RDW Standard Deviation 40.7 fL (36.4-46.3); Red Blood Count 5.52 Miln/mm3 (4.00-5.20); White Blood Count 8.1 Thou/mm3 (4.5-11.0)
[2024-06-29 20:38] LABS: Collection Type, Urine Clean Catch
[2024-06-29 20:43] LABS: Bacteria,Urine 1+; Bilirubin,Urine Negative (Negative); Blood,Urine 3+ (Negative); Clarity,Urine Turbid (Clear/Hazy); Color,Urine Yellow (Lt Yel-Yel); Glucose, Urine Negative (Negative); HCG Qualitative,Urine Negative; Ketones,Urine 2+ (Negative); Leukocyte Esterase,Urine Negative (Negative); Nitrite,Urine Negative (Negative); Protein,Urine 1+ (Neg - Trace); RBC,Urine 6 /hpf (0-3); Specific Gravity,Urine 1.026 (1.001-1.035); Squamous Epithelial Cell,Urine 12 /hpf (0-5); Urobilinogen,Urine Negative mg/dL (0.0-1.0); WBC,Urine 7 /hpf (0-5)
[2024-06-29 21:13] LABS: Amphetamine/Methamp Scrn,U Negative (Negative); Barbiturate Screen,Urine Negative (Negative); Benzodiazepines Screen,Urine Negative (Negative); Benzoylecgonine Screen, Ur Negative (Negative); Fentanyl Screen,Urine Negative (Negative); Opiate Screen,Urine Negative (Negative)
[2024-06-29 21:14] LABS: Alanine Aminotransferase 16 U/L (10-49); Albumin, Serum 4.4 gm/dL (3.5-5.0); Albumin/Globulin Ratio 1.5 (1.2-2.2); Alkaline Phosphatase 64 U/L (46-116); Anion Gap 10 (7-16); Aspartate Amino Transferase 17 U/L (0-34); BUN/Creatinine Ratio 8 Ratio (12-20); Bilirubin,Total 0.5 mg/dL (0.3-1.2); Blood Urea Nitrogen < 5 mg/dL (9-23); Calcium 9.6 mg/dL (8.3-10.6); Calcium (Corrected) 9.6 mg/dL (8.5-10.1); Carbon Dioxide 24.8 mMol/L (20.0-31.0); Chloride 108 mMol/L (98-107); Creatinine (Component) 0.6 mg/dL (0.6-1.3); Estimated Creatinine Clearance 150.7 mL/min (>60); Glucose 100 mg/dL (74-106); Lipase 34 U/L (12-53); Osmolality,Calculated 282 (275-295); Potassium 3.4 mMol/L (3.4-5.1); Sodium 143 mMol/L (136-145); Total Protein 7.4 gm/dL (5.7-8.2); eGFR > 60 See Note
[2024-06-29 21:14] LABS: THC Screen,Urine Positive (Negative)
--- NOTE | 2024-06-29 23:00 | XR_ITS ---
Examination: CT chest with intravenous contrast CT abdomen with intravenous contrast CT pelvis with intravenous contrast 2-D coronal and sagittal reconstructions Time of exam: June 30, 2024 0032 hrs. Indications: Nausea vomiting abdominal pain chest pain beginning 3 weeks ago CTDI: vol (mGy) : 10.6 DLP: (mGycm): 731 Technique: Multiple axial images of the chest, abdomen and pelvis with intravenous contrast, 3.0 mm slice thickness. Images obtained post intravenous injection Isovue 370 60 cc. 2-D sagittal and coronal reconstructions. Low dose protocols were performed. One or more of the following dose reduction techniques were used; automated exposure control, adjustment of the mA and/or KV according to patient size, use of iterative reconstruction technique. Findings: Thoracic aorta intact Pulmonary artery opacification is poor No paratracheal tracheobronchial or bronchopulmonary adenopathy 3 mm pulmonary nodule in the right upper lobe image 163 No pneumonia or pulmonary edema No visualized liver or splenic lesion No gallstones No pancreatic or adrenal mass No renal or ureteral calculi, no hydronephrosis No bowel obstruction Normal appendix Negative for diverticulitis, there is mild wall thickening of the colon including rectum Retroverted uterus Urinary bladder intact Osseous structures intact Impression: 3 mm pulmonary nodule in the right upper lobe, recommend 3 month follow-up PA lateral chest x-ray Mild colitis proctitis pattern
[2024-06-29 23:12] VITALS: BP 99/65; PULSE 86; RESP 16; TEMP 37.2; O2SAT 99
[2024-06-29] MEDS: RINGERS LACTATED 1000 ML 1,000 ML 999 ML IV (23:20)
[2024-06-29] MEDS: ONDANSETRON INJ 2 MG/ML INJ 2 ML 4 MG IV (23:22)
[2024-06-29] MEDS: PANTOPRAZOLE INJ 40 MG VIAL IV (23:23)
[2024-06-30 00:23] VITALS: BP 102/83; PULSE 80; RESP 16; TEMP 37.4; O2SAT 100
--- NOTE | 2024-06-30 00:25 | PC.NURSE ---
Pt to CT scan via wheelchair at this time.
--- NOTE | 2024-06-30 00:27 | PD.EDNV ---
Nausea/Vomit./Diarrhea-RME/HPI General Chief complaint: Nausea/Vomiting/Diarrhea Stated complaint: N/V, SURG IN MAR, PROBS SINCE, NEEDS FLUIDS Time Seen by Provider: 06/29/24 22:53 Arrival date/time: 06/29/24 18:57 RME / HPI RME / HPI Narrative: 06/29/24 18:57 18F with history of hernia surgery several months ago (Dr. Dougherty) presents to ED with request for IVF and CT chest/ab/pelvis (ordered outpatient) for N/V and weight loss since the surgery because she can't keep oral intake down. Zofran/Reglan provide minimal relief. Dr. Marques?s Main ED Evaluation: 18yo female with a history of GERD, IBS, esophagitis, hiatal hernia surgery in [address] Dougherty accompanied by her mom presents to the ED for persistent nausea and vomiting. Patient states after her hernia surgery, she was somewhat able to tolerate fluids. Over the last few months, she states she's had nausea and vomiting daily, reporting she is unable to keep down liquids or food. She states she's had 1-2 follow-up appointments with Dr. Dougherty since, but states he's recently been out of the country and does not have an appointment with him until Friday. Patient states she was seen by her PCP today, who was concerned due to the patient's rapid weight loss (50 pounds since April) and was sent over here for evaluation. Patient denies any fever, chills or any other associated symptoms. Related Data Home Medications ?Medication ?Instructions ?Recorded ?Confirmed fluoxetine 20 mg capsule 40 mg PO DAILY 12/02/23 03/29/24 olanzapine 5 mg tablet 10 mg PO HS 12/02/23 03/29/24 Previous Rx's ?Medication ?Instructions ?Recorded hydrocodone 10 mg-acetaminophen 1 tab PO Q6H PRN pain #28 tabs 03/30/24 325 mg tablet ibuprofen 800 mg tablet 800 mg PO Q8H PRN pain #60 tabs 03/30/24 metoclopramide HCl 10 mg tablet 10 mg PO Q6H #120 tabs 05/14/24 (Reglan) Allergies Allergy/AdvReac Type Severity Reaction Status Date / Time milk Allergy Severe Hives Verified 06/29/24 19:02 pineapple Allergy Severe Swelling Verified 06/29/24 19:02 of Lip/Tongue/Throat Review of Systems Review of Systems Systems Reviewed: All systems reviewed, normal except as documented Past Medical History Past Medical History NEUROLOGIC: Positive Neurological Disorders and Migraine; Negative Seizures CARDIAC: Negative Cardiac Disorders or Congestive Heart Failure RESPIRATORY: Negative Chronic Obstructive Pulmonary Disease (COPD) or Asthma GASTROINTESTINAL: Positive Gastrointestinal Disorders, Hiatal Hernia and Gastroesophageal Reflux Disease; Negative Hepatitis GENITOURINARY: Negative Genitourinary Disorders or Renal Disease REPRODUCTIVE: Negative Previous Pregnancies MUSCULOSKELETAL: Positive Musculoskeletal Disorders and Fractures; Negative Arthritis ENDOCRINE: Positive Endocrine Disorders and Diabetes Mellitus Type 2; Negative Diabetes Mellitus Type 1 HEMATOLOGIC: Positive Blood Disorders and Anemia; Negative Sickle Cell Disease PSYCHO/SOCIAL: Positive Bipolar Disorder, Depression and Anxiety OTHER HISTORY: Negative Hospitalization, Autoimmune Disease, Down Syndrome, Developmental Delay, Shingles, Falls, Blood Transfusions, Blood Transfusion Reaction, Anesthesia Reactions, Human Immunodeficiency Virus (HIV), Chicken Pox, Measles, Mumps, Rubella (Salvadorean Measles), Pertussis or Cancer Family History FAMILY HISTORY: Negative Family Anesthesia Reaction Surgical History SURGICAL: Positive Abdominal Surgery Social History SMOKING STATUS: Former smoker SECOND HAND EXPOSURE: No ED Exam Narrative Physical exam: GENERAL APPEARANCE: alert and oriented x 4, well-developed, well-nourished, no acute distress VITALS: All vitals were reviewed and the pulse ox is 100% on room air, which is normal according to my interpretation. HEENT: Normocephalic, atraumatic; pupils equal, round, reactive to light; EOMI; mucous membranes pink, moist; oropharynx clear NECK: Supple LUNGS: CTABL; no wheezes, no rales, no rhonchi HEART: Regular rate, regular rhythm; normal S1, S2; no murmurs ABDOMEN: non distended; normal BS; soft, no tenderness, no guarding, no rebound; no masses, no organomegaly, no hernia BACK: no CVA tenderness EXTREMITIES: atraumatic; no edema NEUROLOGIC: awake; alert and oriented x4; cranial nerves II-XII grossly intact; no focal sensory or motor deficits PSYCHIATRIC: appropriate mood and affect SKIN: warm, dry, normal color; no rashes Course Quality Measures none Orders Category Date Time Status CT Screening NOW Care 06/29/24 23:[address] chest abdomen pelvis w Stat Exams 06/29/24 23:00 Completed CBC Stat Lab 06/29/24 20:14 Completed CMP [Comprehensive Metabolic Panel] Stat Lab 06/29/24 20:14 Completed Drug Screen,Urine Stat Lab 06/29/24 20:33 Completed HCG Qualitative,Urine Stat Lab 06/29/24 20:33 Completed Lipase Stat Lab 06/29/24 20:14 Completed UA [Urinalysis] Stat Lab 06/29/24 20:33 Completed Famotidine Inj [Pepcid Inj] Med 06/30/24 03:37 Discontinued 20 mg IVP X1 ONE Morphine Inj Med 06/30/24 03:37 Discontinued 2 mg IVP X1 ONE Ondansetron Inj [Zofran Inj] Med 06/30/24 02:21 Discontinued 4 mg .ROUTE .STK-MED ONE Ondansetron Inj [Zofran Inj] Med 06/29/24 23:00 Discontinued 4 mg IV X1 ONE Ondansetron Inj [Zofran Inj] Med 06/30/24 01:55 Discontinued 4 mg IV X1 ONE Pantoprazole Inj [Protonix Inj] Med 06/29/24 23:00 Discontinued 40 mg IV X1 ONE Ringers Lactated 1000 ml [Lactated Ringers] 1,000 ml Med 06/29/24 23:00 Discontinued IV 999 mls/hr Vital Signs Vital signs: Vital Signs Temperature 99.1 F 06/29/24 19:37 Pulse Rate 103 H 06/29/24 19:37 Respiratory Rate 18 06/29/24 19:37 Blood Pressure 110/78 06/29/24 19:37 Pulse Oximetry (%) 97 06/29/24 19:37 Oxygen Delivery Method Room Air 06/29/24 19:37 Nausea/Vomiting/Diarrhea MDM Narrative MDM Narrative:: Scribe Attestation: 06/30/24 Chelo Durham am scribing for and in the presence of Dr. Marques. Patient data External records reviewed:: [facility] previous records (Per chart review, patient was admitted here on 05/08/24 for abdominal pain.) Clinical information provided by:: patient Social determinants that could affect healthcare access:: none Patient has the following chronic illnesses:: GERD, IBS, chronic abdominal issues How is presenting disease/condition affected by chronic disease/condition?: uneffected by Evaluation data The following diagnostics were reviewed and interpreted by me:: lab results and radiology exam(s) Lab and/or radiology exams considered but not ordered:: none Interpretation Summary: CBC is normal, CMP is normal, Lipase is normal, UA is positive for a UTI, HCG is negative, UDS is positive for marijuana, according to my interpretation. --------- T[facility] Preliminary Report Draft Patient: MIGUEL SAUCEDO. Record#: [id number] Birthdate: 2005 Age/Sex: 18 / F Location: [facility] Attending Dr: Ordering Physician: Date of Service: Procedure(s): Accession Number(s): cc: ~ CT scan of the chest, abdomen and pelvis with intravenous contrast (axial sections with sagittal and coronal reformats) June 30, 2024 0029 hours Clinical History: Abdomen pain, vomiting Comparison: None. Findings: Cardiac size is normal. No pericardial effusion, pleural effusion or pneumothorax. Clear lungs. Liver, gallbladder , spleen, adrenal glands, pancreas and kidneys are unremarkable. Mild wall thickening of the descending colon through rectum. The appendix is normal, best seen on image 246. The urinary bladder is normal. Retroverted uterus. There is no adnexal cyst or mass. No free intraperitoneal air or fluid. No acute osseous process. Impression: Possible proctocolitis. Report Electronically Signed By: Herber Vera 06/30/2024 1:42:24 AM Medications / Prescriptions Medications / Prescriptions considered but not ordered:: none Medication administrations:: Medication Administration History Discontinued Medications Famotidine (Famotidine Inj 10 Mg/Ml Vial 2 Ml) 20 mg IVP X1 ONE Stop: 06/30/24 03:38 Last Admin: 06/30/24 03:45 Dose: 20 mg Documented By: KG Lactated Ringer's (Lactated Ringers) 1,000 mls @ 999 mls/hr IV .Q1H1M ONE Stop: 06/30/24 00:00 Last Infusion: 06/30/24 00:24 Dose: Infused Documented By: Admin: 06/29/24 23:20 Dose: 999 mls/hr Documented By: KG Morphine Sulfate (Morphine Sulf Inj 10 Mg/Ml Vial) 2 mg IVP X1 ONE Stop: 06/30/24 03:38 Last Admin: 06/30/24 03:45 Dose: 2 mg Documented By: KG Ondansetron HCl (Ondansetron Inj 2 Mg/Ml Inj 2 Ml) 4 mg IV X1 ONE; Protocol Stop: 06/29/24 23:01 Last Admin: 06/29/24 23:22 Dose: 4 mg Documented By: KG Ondansetron HCl (Ondansetron Inj 2 Mg/Ml Inj 2 Ml) Confirm Administered Dose 4 mg .ROUTE .STK-MED ONE Stop: 06/30/24 02:22 Last Admin: 06/30/24 03:30 Dose: Not Given Documented By: KG Non-Admin Reason: Duplicate Medication on eMAR Comments: downtime override Ondansetron HCl (Ondansetron Inj 2 Mg/Ml Inj 2 Ml) 4 mg IV X1 ONE; Protocol Stop: 06/30/24 01:56 Last Admin: 06/30/24 01:59 Dose: 4 mg Documented By: KG Pantoprazole Sodium (Pantoprazole Inj 40 Mg Vial) 40 mg IV X1 ONE Stop: 06/29/24 23:01 Last Admin: 06/29/24 23:23 Dose: 40 mg Documented By: KG see above Consultations Consultation(s) initiated? (list below): No Diagnosis Nausea Differential Diagnosis: other (gastroparesis, fundoplication surgery complication, cannabinoid-induced hyperemesis) Most likely diagnosis given after review of the tests above:: see below Admission Indicated Admission indicated?: not indicated Admission Request Was there a request for admission?: No Disposition Plan Disposition Plan: Discharge Discharge Attestation Discharge Attestation: The patient and all family members were given an opportunity to ask questions and understood the discharge instructions. Discharge instructions specifically effects, indications for sooner follow up or return to the emergency department, and the expected course of current diagnosis. Patient condition: Stable Discharge Plan Plan Patient Disposition: HOME (Self Care) Disposition Comment: Stable for discharge Patient condition on transfer: Stable Prescriptions/Referrals Prescriptions/Med Rec: No Action olanzapine 5 mg tablet 10 mg PO HS Patient Comments: take 1 tablet by mouth every evening fluoxetine 20 mg capsule 40 mg PO DAILY Patient Comments: take 1 capsule by mouth every morning ibuprofen 800 mg tablet 800 mg PO Q8H PRN (Reason: pain) Qty: 60 0RF hydrocodone-acetaminophen 10-325 mg tablet 1 tab PO Q6H MDD 4 PRN (Reason: pain) Qty: 28 0RF metoclopramide HCl [Reglan] 10 mg tablet 10 mg PO Q6H Qty: 120 0RF Referrals: Gerson Quinones MD [Physician] - In 1 week Sathish Dougherty MD [Physician] - In 1 week Problem List Clinical Impression: Nausea & vomiting Patient/Caregiver Discharge Instructions Discharge Activity: activity as tolerated Education Materials: Self-Care for Vomiting and Diarrhea, ED Diet for Vomiting or ..., ED Vomiting (Adult) Additional Instructions: Please return to the emergency department if you have any worsening or any further medical problems and we will help you. Otherwise you should follow-up with your primary care doctor within the next several days. I have given you contact information for our fly worker, Dr. Quinones. Please give his office a call and you could be seen as an outpatient in follow-up. Also I gave you the information for Dr. Reese's office. Please give him a call and make a follow-up appointment Print Language: Barbadian Stand Alone Forms: Kathy Award Info., Patient Portal Info Letter
--- NOTE | 2024-06-30 01:20 | PC.NURSE ---
Dr. Marques at the bedside.
--- NOTE | 2024-06-30 01:43 | PRELIM_ITS ---
CT scan of the chest, abdomen and pelvis with intravenous contrast (axial sections with sagittal and coronal reformats) June 30, 2024 0029 hours Clinical History: Abdomen pain, vomiting Comparison: None. Findings: Cardiac size is normal. No pericardial effusion, pleural effusion or pneumothorax. Clear lungs. Liver, gallbladder , spleen, adrenal glands, pancreas and kidneys are unremarkable. Mild wall thickening of the descending colon through rectum. The appendix is normal, best seen on image 246. The urinary bladder is normal. Retroverted uterus. There is no adnexal cyst or mass. No free intraperitoneal air or fluid. No acute osseous process. Impression: Possible proctocolitis. Report Electronically Signed By: Herber Vera 06/30/2024 1:42:24 AM [EST]
[2024-06-30] MEDS: ONDANSETRON INJ 2 MG/ML INJ 2 ML 4 MG IV (01:59)
--- NOTE | 2024-06-30 03:33 | PC.NURSE ---
Dr. Marques at the bedside.
[2024-06-30] MEDS: MORPHINE SULF INJ 10 MG/ML VIAL 2 MG IVP (03:45)
[2024-06-30] MEDS: FAMOTIDINE INJ 10 MG/ML VIAL 2 ML 20 MG IVP (03:45)
[2024-06-30 03:56] VITALS: BP 93/66; PULSE 90; RESP 19; O2SAT 100
== END 2024-06-30 03:57 | disposition home or self-care (01) ==
PROVIDERS: Physician Assistant; Emergency Provider Emergency Medicine
DX: R11.2 Nausea with vomiting, unspecified (principal); R10.9 Unspecified abdominal pain; R07.9 Chest pain, unspecified; N39.0 Urinary tract infection, site not specified
CPT/HCPCS: 36415; 71260; 74177; 80053; 80307; 81001; 81025; 83690; 85025; 96374; 96375; 96376; 99284; A4649; J2270; J2405; J2470; J3490; J7120; Q9967

== ENCOUNTER 2024-07-11 09:18 | Inpatient (IN) | payer MEDICAID, SELFPAY ==
[2024-07-11] VITALS (15 sets, daily range): BP systolic 92–130; BP diastolic 55–98; PULSE 59–90; RESP 16–20; TEMP 36.1–37.1; O2SAT 94–99; BMI 31.1
--- NOTE | 2024-07-11 09:36 | PD.EDRME ---
Rapid Medical Screening Exam RME Arrival date/time: 07/11/24 09:18 18-year-old female with a history of GERD, IBS, esophagitis, hiatal hernia surgery in [address] Dougherty, presents to the emergency room with a chief complaint of abdominal pain, vomiting, nausea x 3 months. Patient states that since her surgery she has lost over 50 pounds, has had nausea vomiting and abdominal pain. I have greeted and performed a focused initial assessment of this patient. A comprehensive ED assessment and evaluation of the patient, analysis of all test results, and completion of the medical decision making process will be conducted by additional ED providers. Chief Complaint: Chest Pain Time Seen by Provider: 07/11/24 09:21 Vital signs: Vital Signs Temperature 98.8 F 07/11/24 09:26 Pulse Rate 86 07/11/24 09:26 Respiratory Rate 16 07/11/24 09:26 Blood Pressure 93/68 07/11/24 09:26 Pulse Oximetry (%) 97 07/11/24 09:26 Oxygen Delivery Method Room Air 07/11/24 09:26 Vital signs reviewed by provider: Yes
[2024-07-11 09:56] LABS: Basophils # (Auto) 0.1 Thou/mm3 (0.0-0.2); Basophils % (Auto) 1 % (0-2.5); Eosinophils % (Auto) 1 % (0-10); Hematocrit 44.4 % (36.0-46.0); Hemoglobin 14.1 g/dL (12.0-16.0); Immature Granulocytes % (Auto) 0 % (0-0); Immature Granulocytes Auto 0.02 Thou/mm3 (0.00-0.00); Lymphocytes % (Auto) 35 % (10-50); Mean Corpuscular HGB Conc 31.8 g/dl (31.0-37.0); Mean Corpuscular Hemoglobin 24.8 pg (25.0-35.0); Mean Corpuscular Volume 78 fL (80-100); Monocytes # (Auto) 0.8 Thou/mm3 (0.0-0.8); Monocytes % (Auto) 9 % (0-12); Neutrophils # (Auto) 4.8 Thou/mm3 (1.8-7.7); Neutrophils % (Auto) 55 % (37-80); Nucleated Red Blood Cell % 0 /100 WBC (0); Platelet Count 361 Thou/mm3 (140-440); RDW Standard Deviation 41.6 fL (36.4-46.3); Red Blood Count 5.69 Miln/mm3 (4.00-5.20); White Blood Count 8.7 Thou/mm3 (4.5-11.0)
[2024-07-11 10:17] LABS: INR 1.1 (0.9-1.3); Partial Thromboplastin Time 25.9 Seconds (22.0-36.0); Prothrombin Time 11.6 Seconds (9.0-12.2)
[2024-07-11 10:30] LABS: Alanine Aminotransferase 20 U/L (10-49); Albumin, Serum 4.6 gm/dL (3.5-5.0); Albumin/Globulin Ratio 1.6 (1.2-2.2); Alkaline Phosphatase 66 U/L (46-116); Anion Gap 10 (7-16); Aspartate Amino Transferase 15 U/L (0-34); BUN/Creatinine Ratio 6 Ratio (12-20); Bilirubin,Total 0.7 mg/dL (0.3-1.2); Blood Urea Nitrogen 5 mg/dL (9-23); Calcium 9.9 mg/dL (8.3-10.6); Calcium (Corrected) 9.9 mg/dL (8.5-10.1); Carbon Dioxide 25.7 mMol/L (20.0-31.0); Chloride 104 mMol/L (98-107); Creatinine (Component) 0.8 mg/dL (0.6-1.3); Estimated Creatinine Clearance 107.9 mL/min (>60); Globulin 2.9 gm/dL (2.3-3.5); Glucose 116 mg/dL (74-106); Lipase 47 U/L (12-53); Osmolality,Calculated 277 (275-295); Potassium 3.8 mMol/L (3.4-5.1); Sodium 140 mMol/L (136-145); Total Protein 7.5 gm/dL (5.7-8.2); eGFR > 60 See Note
--- NOTE | 2024-07-11 11:58 | PD.EDABDPN ---
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 30 mg Documented By: Admin: 07/13/24 23:44 Dose: 30 mg Documented By: Admin: 07/13/24 17:07 Dose: 30 mg Documented By: Admin: 07/13/24 11:58 Dose: 30 mg Documented By: Admin: 07/13/24 05:12 Dose: 30 mg Documented By: Admin: 07/12/24 23:41 Dose: 30 mg Documented By: Admin: 07/12/24 18:17 Dose: 30 mg Documented By: RADHA Ketorolac Tromethamine (Ketorolac Inj 30 Mg/Ml Vial) 30 mg IVP Q6HR PRN PRN Reason: PAIN Stop: 07/23/24 02:19 Ketorolac Tromethamine (Ketorolac Inj 30 Mg/Ml Vial) 30 mg IVP Q6HR PRN PRN Reason: PAIN SCALE 4-10(Mod-Sev Stop: 07/23/24 02:19 Last Admin: 07/18/24 12:26 Dose: 30 mg Documented By: Admin: 07/18/24 02:36 Dose: 30 mg Documented By: ERINN Lidocaine HCl (Lidocaine Jelly 2% 5 Ml Tube) Confirm Administered Dose 5 ml .ROUTE .STK-MED ONE Stop: 07/12/24 13:14 Lidocaine HCl (Lidocaine Inj Pf 2% 5 Ml Vial) Confirm Administered Dose 5 ml .ROUTE .STK-MED ONE Stop: 07/12/24 13:14 Meperidine HCl (Meperidine Inj 50 Mg/Ml Vial) Confirm Administered Dose 50 mg .ROUTE .ST-MED ONE Stop: 07/11/24 14:24 Meperidine HCl (Meperidine Inj 50 Mg/Ml Vial) Confirm Administered Dose 50 mg .ROUTE .[facility]-MED ONE Stop: 07/11/24 14:41 Meperidine HCl (Meperidine Inj 50 Mg/Ml Vial) 50 mg IV Q2M PRN PRN Reason: Moderate Sedation Stop: 07/11/24 16:48 Meperidine HCl (Meperidine Inj 25 Mg/Ml Vial) 25 mg IVP Q2HR PRN PRN Reason: breakthrough pain Stop: 07/18/24 01:59 Metoclopramide HCl (Metoclopramide Inj 5 Mg/Ml Vial 2 Ml) 5 mg IVP X1 ONE; Protocol Stop: 07/11/24 11:56 Last Admin: 07/11/24 12:13 Dose: 5 mg Documented By: CHRISTIANO Metoclopramide HCl (Metoclopramide Inj 5 Mg/Ml Vial 2 Ml) Confirm Administered Dose 10 mg .ROUTE .[facility] ONE Stop: 07/12/24 13:14 Metoclopramide HCl (Metoclopramide Inj 5 Mg/Ml Vial 2 Ml) 10 mg IVP Q8HR SHONDA; Protocol Stop: 08/13/24 21:59 Last Admin: 07/18/24 14:23 Dose: 10 mg Documented By: Admin: 07/18/24 05:47 Dose: 10 mg Documented By: Admin: 07/17/24 20:56 Dose: 10 mg Documented By: Admin: 07/17/24 14:22 Dose: 10 mg Documented By: Admin: 07/17/24 05:03 Dose: 10 mg Documented By: Admin: 07/16/24 22:09 Dose: 10 mg Documented By: Admin: 07/16/24 15:21 Dose: 10 mg Documented By: [email or web address] Admin: 07/16/24 05:24 Dose: Not Given Documented By: MIRIAM Non-Admin Reason: Held for Procedure Admin: 07/15/24 22:07 Dose: 10 mg Documented By: Admin: 07/15/24 13:57 Dose: 10 mg Documented By: [email or web address] Admin: 07/15/24 05:07 Dose: 10 mg Documented By: Admin: 07/14/24 21:19 Dose: 10 mg Documented By: JIGNESH Midazolam HCl (Midazolam Inj 1 Mg/Ml Vial 2 Ml) Confirm Administered Dose 6 mg .ROUTE .STK-MED ONE Stop: 07/11/24 14:25 Midazolam HCl (Midazolam Inj 1 Mg/Ml Vial 2 Ml) 2 mg IV Q2M PRN PRN Reason: Moderate Sedation Stop: 07/11/24 16:48 Midazolam HCl (Midazolam Inj 1 Mg/Ml Vial 2 Ml) Confirm Administered Dose 2 mg .ROUTE .STK-MED ONE Stop: 07/12/24 13:12 Morphine Sulfate (Morphine Sulf Inj 10 Mg/Ml Vial) 2 mg IVP X1 ONE Stop: 07/11/24 11:56 Last Admin: 07/11/24 12:14 Dose: 2 mg Documented By: CHRISTIANO Ondansetron HCl (Ondansetron Inj 2 Mg/Ml Inj 2 Ml) 4 mg IV X1 ONE Stop: 07/11/24 14:49 Last Admin: 07/11/24 16:56 Dose: Not Given Documented By: RADHA Non-Admin Reason: Not In Room Ondansetron HCl (Ondansetron Inj 2 Mg/Ml Inj 2 Ml) Confirm Administered Dose 4 mg .ROUTE .STK-MED ONE Stop: 07/11/24 14:50 Ondansetron HCl (Ondansetron Inj 2 Mg/Ml Inj 2 Ml) 4 mg IV Q3HR PRN; Protocol PRN Reason: NAUSEA OR VOMITING Stop: 08/10/24 19:54 Ondansetron HCl (Ondansetron Inj 2 Mg/Ml Inj 2 Ml) Confirm Administered Dose 4 mg .ROUTE .[facility]-MED ONE Stop: 07/12/24 13:14 Ondansetron HCl (Ondansetron Inj 2 Mg/Ml Inj 2 Ml) 4 mg IV X1 ONE Stop: 07/12/24 14:32 Last Admin: 07/12/24 17:06 Dose: 4 mg Documented By: PEDRO Pantoprazole Sodium (Pantoprazole Inj 40 Mg Vial) 40 mg IVP QDAY SHONDA Stop: 08/11/24 08:59 Last Admin: 07/18/24 09:08 Dose: 40 mg Documented By: Admin: 07/17/24 09:03 Dose: 40 mg Documented By: Admin: 07/16/24 08:04 Dose: 40 mg Documented By: Admin: 07/15/24 07:45 Dose: 40 mg Documented By: [email or web address] Admin: 07/14/24 08:46 Dose: 40 mg Documented By: Admin: 07/13/24 08:33 Dose: 40 mg Documented By: Admin: 07/12/24 08:31 Dose: 40 mg Documented By: RADHA Promethazine HCl (Promethazine Inj 25 Mg/Ml Vial) Confirm Administered Dose 25 mg .ROUTE .STK-MED ONE Stop: 07/14/24 08:35 Last Admin: 07/14/24 13:18 Dose: Not Given Documented By: TIKI Non-Admin Reason: Duplicate Medication on eMAR Propofol (Propofol Inj 10 Mg/Ml Vial 20 Ml) Confirm Administered Dose 200 mg IV .STK-MED ONE Stop: 07/12/24 11:19 Rocuronium [place] (Rocuronium Inj 10 Mg/Ml Vial 10 Ml) Confirm Administered Dose 100 mg .ROUTE .STK-MED ONE Stop: 07/12/24 13:13 Sugammadex Sodium (Sugammadex Inj 100 Mg/Ml 2ml Vial) Confirm Administered Dose 200 mg .ROUTE .STK-MED ONE Stop: 07/12/24 15:47 see [facility] Consultations Consultation(s) initiated? (list below): Yes Consultation #1 (Physician, Specialty, Details): he will admit patient to hospital Diagnosis Differential diagnosis abdominal pain: abdominal pain and other (pyloric stenosis, esophageal foreighn body, s/p Scarlett fundoplication) Most likely diagnosis given after review of the tests above:: pyloric stenosis, esophageal foreighn body, s/p Scarlett fundoplication Admission Indicated Admission indicated?: indicated Explain why admission is indicated or not indicated:: patient is scheduled for endoscopy Admission Request Was there a request for admission?: Yes Admission Attestation Admission request attestation: Discussed case with [] from Hospitalist service regarding admission. Discussed patients ED course, exam findings, labs, and radiology results. The Hospitalist [agrees,declines] to accept the patient for admission. Disposition Plan Disposition Plan: Admit Discharge Plan Plan Patient Disposition: Other Care w/in Hosp ([facility]) Disposition Comment: Follow-up in the office in 1 to 2 weeks Patient condition on transfer: Stable Problem List Clinical Impression: Pyloric stenosis, History of Scarlett fundoplication, Foreign body in esophagus Patient/Caregiver Discharge Instructions Other Activity Instructions:: Patient is not to take her bipolar medications as long as she is needing reglan as there may be an interaction between the 2. This was explained to the patient in detail. Diet Instructions: Full liquid diet for 2 weeks follow-up in the office in 2 weeks PA/TOUCH UP EDGER Supervising Physician PA/TOUCH UP EDGER Supervising Physician: Rainer
[2024-07-11] MEDS: SODIUM CHLORIDE 0.9% 1000 ML 1,000 ML 999 ML IV (12:03)
[2024-07-11] MEDS: METOCLOPRAMIDE INJ 5 MG/ML VIAL 2 ML IVP (12:13)
[2024-07-11] MEDS: MORPHINE SULF INJ 10 MG/ML VIAL 2 MG IVP (12:14)
[2024-07-11 12:41] LABS: Collection Type, Urine Clean Catch
--- NOTE | 2024-07-11 12:51 | PD.SURHP ---
HPI Date of Admission 07/11/2024 Chief Complaint Chief Complaint: Nausea vomiting and dysphagia HPI This 18 years old female has a history of Scarlett fundoplication for longstanding gastroesophageal reflux. She went to the emergency room with complaints of nausea vomiting and dysphagia and gastric bloating. Initial evaluation was carried out in the emergency room and it was noted that 2 weeks ago also she had gone to the emergency room. There was no essential findings at the CAT scan at that time and it was felt that new CAT scan is not necessary. Right she has developed pyloric stenosis and difficulty emptying the stomach as well as sometimes the food is getting stuck in the esophagus. She has a previous history of upper endoscopy and dilatation that helped her quite a bit however she continues to have difficulty in emptying the stomach and she requires further evaluation and management. Last time when she had upper GI endoscopy at that time she said that she was n.p.o. for 48 hours however the stomach had significant amount of food residue that had not emptied the stomach. She was placed on Reglan therapy that helped her to empty the stomach but is not completely effective at this time. She will undergo upper GI endoscopy possible dilatation possible biopsy. She might also be a candidate for pyloroplasty. Risk benefits and alternatives were discussed with the patient and informed consent is obtained. Review of Systems Constitutional Constitutional: Denies headache(s) ENT Ears, Nose, Mouth, and Throat: Denies headache(s) Neurologic Neurologic: Reports system reviewed and no additional complaints, except as documented, Reports as per HPI and Denies headache(s) Past Medical History Past Medical History NEUROLOGIC: Positive Neurological Disorders and Migraine; Negative Seizures CARDIAC: Negative Cardiac Disorders or Congestive Heart Failure RESPIRATORY: Negative Chronic Obstructive Pulmonary Disease (COPD) or Asthma GASTROINTESTINAL: Positive Gastrointestinal Disorders, Hiatal Hernia and Gastroesophageal Reflux Disease; Negative Hepatitis GENITOURINARY: Negative Genitourinary Disorders or Renal Disease REPRODUCTIVE: Negative Previous Pregnancies MUSCULOSKELETAL: Positive Musculoskeletal Disorders and Fractures; Negative Arthritis ENDOCRINE: Positive Endocrine Disorders and Diabetes Mellitus Type 2; Negative Diabetes Mellitus Type 1 HEMATOLOGIC: Positive Blood Disorders and Anemia; Negative Sickle Cell Disease PSYCHO/SOCIAL: Positive Bipolar Disorder, Depression and Anxiety OTHER HISTORY: Negative Hospitalization, Autoimmune Disease, Down Syndrome, Developmental Delay, Shingles, Falls, Blood Transfusions, Blood Transfusion Reaction, Anesthesia Reactions, Human Immunodeficiency Virus (HIV), Chicken Pox, Measles, Mumps, Rubella ([place] Measles), Pertussis or Cancer Family History FAMILY HISTORY: Negative Family Anesthesia Reaction Surgical History SURGICAL: Positive Abdominal Surgery Social History SMOKING STATUS: Former smoker SECOND HAND EXPOSURE: No Meds Home Medications and Allergies Home Medications ?Medication ?Instructions ?Recorded ?Confirmed ?Type fluoxetine 20 mg capsule 40 mg PO DAILY 12/02/23 03/29/24 History olanzapine 5 mg tablet 10 mg PO HS 12/02/23 03/29/24 History Allergies Allergy/AdvReac Type Severity Reaction Status Date / Time milk Allergy Severe Hives Verified 07/11/24 09:20 pineapple Allergy Severe Swelling Verified 07/11/24 09:20 of Lip/Tongue/Throat Exam Vital Signs Temp Pulse Resp BP Pulse Ox O2 Del Method 98.6 F 69 17 92/57 L 99 Room Air 07/11/24 11:47 07/11/24 11:47 07/11/24 11:47 07/11/24 11:47 07/11/24 11:47 07/11/24 11:47 Constitutional Constitutional: no acute distress Routine HEENT Exam Head: Present normocephalic Eye: Present EOMI and PERRL ENT: Present mucous membranes moist Routine Neck Exam Neck: Present supple and trachea midline Routine Chest/Breast/Axilla Exam Chest wall: Absent tenderness or mass Routine Respiratory Exam Respiratory: Present chest non-tender, lungs clear, normal breath sounds and no resp distress; Absent respiratory distress Routine Cardiovascular Exam Cardiovascular: Present RRR Routine Abdominal Exam Abdominal: Present soft and normoactive bowel sounds Comments: There are healing laparoscopic fundoplication incisions abdomen is soft and nontender bowel tones are normal. Routine Extremities Exam Extremities: Present full ROM Routine Skin Exam Skin: Present intact, dry and warm Routine Neurological Exam Neurological: Present alert, oriented X3 and CN II-XII intact Routine Psychiatric Exam Psychiatric: Present normal affect and normal thought process Results Results: Laboratory Laboratory results: results reviewed Assessment & Plan Problem List (1) Foreign body in esophagus: Qualifiers: Encounter type: initial encounter Qualified Code(s): T18.108A - Unspecified foreign body in esophagus causing other injury, initial encounter Status: Acute (2) History of Scarlett fundoplication: Status: Acute (3) Pyloric stenosis: Status: Acute Plan Upper GI endoscopy possible dilatation possible biopsy. She will be scheduled for pyloroplasty for delayed emptying of the stomach based on the findings from upper GI endoscopy. And informed consent was obtained. Quality Measures Quality Measures none
[2024-07-11 13:02] LABS: HCG Qualitative,Urine Negative
[2024-07-11 13:06] LABS: Bilirubin,Urine Negative (Negative); Blood,Urine Trace (Negative); Clarity,Urine Turbid (Clear/Hazy); Color,Urine Yellow (Lt Yel-Yel); Glucose, Urine Negative (Negative); Ketones,Urine 1+ (Negative); Leukocyte Esterase,Urine Positive (Negative); Nitrite,Urine Negative (Negative); PH,Urine 6.5 (5.0-7.0); Protein,Urine 1+ (Neg - Trace); RBC,Urine 2 /hpf (0-3); Specific Gravity,Urine 1.027 (1.001-1.035); Squamous Epithelial Cell,Urine 11 /hpf (0-5); WBC,Urine 1 /hpf (0-5)
[2024-07-11 13:16] LABS: Amphetamine/Methamp Scrn,U Negative (Negative); Barbiturate Screen,Urine Negative (Negative); Benzodiazepines Screen,Urine Negative (Negative); Benzoylecgonine Screen, Ur Negative (Negative); Fentanyl Screen,Urine Negative (Negative); Opiate Screen,Urine Negative (Negative); THC Screen,Urine Positive (Negative)
--- NOTE | 2024-07-11 14:54 | ESOP_ITS ---
Date of Procedure 07/11/24 Pre Op Diagnosis Dysphagia and postprandial. Bloating. S/p Scarlett fundoplication. Post Op Diagnosis Mild esophageal stenosis in the lower esophagus and pyloric stenosis with retained food in the stomach. Procedure Upper GI endoscopy with dilatation with Lord 52 Guinean dilator. On July 11, 2024 Findings This patient has been n.p.o. since 48 hours but she still had significant amount of food in the stomach that is not emptying well. Further examination showed that fundoplication is in good position the lower esophagus required dilatation with a 52 [place]ine[place] Lord. There is no evidence of food in the esophagus and the postoperative edema in the esophageal junction has reduced significantly from the last time. She has had a significant stenosis of the pylorus and I had a very difficult time trying to open the pylorus with the scope and then enter into the duodenum and that tumor was producing a significant amount of pain for the patient she received significant amount of sedatives. Procedure Description The patient is positioned in the left side down decubitus position. IV sedation is given starting with 1 mg of Versed and 25 mg of Demerol and 25 mg of Benadryl. Cetacaine spray is used. Patient required another round of Versed the Demerol x 2 before we can start with the procedure. Apparently she has been on hydrocodone so she has a high tolerance. Subsequently during the procedure she required another milligram of Versed and 25 mg of Benadryl. The Olympus gastroscope is used. The probation Connecting the scope to the picture taking is not working and we tried several different options the [facility] could not help with it. Therefore I am dictating these op report and the regular op report space. Small amount of gel is used and the scope is then introduced into the mouth and in the pharynx. We were able to enter the esophagus without much difficulty to the lower esophagus. Now there is no evidence of esophagitis or ulceration or Rey's esophagus and there is no food in the esophagus. I needed to use a small amount of pressure to enter into the stomach through the GE junction due to previous fundoplication. I noticed that there is a lesser amount of edema and swelling in the GE junction which is common for postop patients. As I entered the stomach about 300 to 500 cc of liquid was present. I aspirated that and I saw pieces of food material fibrous material that has had no evacuation into the duodenum. The patient has been n.p.o. for 48 hours and he has been on Reglan. Apparently Reglan is not working very well for her. I was able to examine the entire stomach upper after aspiration the retroflexion shows the fundoplication is in very good place there is no evidence of hiatal hernia. The scope is straightened out and then I tried to enter the duodenum and I was not able to do that for a significant period of time. The pyloric outlet is stenotic. Finally after considerable pressure I was able to enter into the duodenum but then the tight pylorus was holding onto the scope and so I could not advance much into the duodenum I did not see any lesions in the duodenum. The scope was withdrawn back and again I inspected the antrum pylorus body of the stomach fundus greater and lesser curvature and also with the retroflexion cardiac region. There were no other lesions in the stomach. The scope is then gently withdrawn from the patient. Then after that I used a 52 [place] Lord with the lubrication and turned that into the esophagus without difficulty and was able to advance the a 52 [place]ine[place] Lord to about 55 cm there was mild resistance towards the lower end of the esophagus however I was able to complete the dilatation. The Lord dilator was removed there are no complications. The patient was transferred to the recovery room in a satisfactory condition. Anesthesia IV sedation (Patient received 4 mg of Versed and 75 mg of Demerol and 50 mg of Benadryl IV. Patient condition remains steady and stable) Pathology / specimen None Estimated Blood Loss 0 Condition Stable Disposition PACU Surgeon Sathish Dougherty MD Surgical Staff Operation Date: 07/11/24 14:00 <No data on this case meets the specified criteria> Nell RN IV sedation monitoring nurse Kary RN IV sedation monitoring nurse Nidhi fire extinguisher technician Additional Comment This patient will require pyloroplasty so that the stomach can empty properly and laparoscopic pyloroplasty will be scheduled.
--- NOTE | 2024-07-11 15:00 | SUR.PHASEI ---
1500: Pt. AAOx4, vitals stable, breathing unlabored, no complaint of pain or nausea, no dressing in place, no active bleed noted, report received from Kary APPIAH.
--- NOTE | 2024-07-11 15:30 | SUR.PHASEI ---
1530: Pt. AAOx4, vitals stable, breathing unlabored, no complaint of pain or nausea, no dressing in place, no active bleed noted, report given to Malika APPIAH prior to transfer to room 366, family made aware of transfer to room.
[2024-07-11] MEDS: RINGERS LACTATED 1000 ML 1,000 ML 125 ML IV ×2 (15:51→21:35)
[2024-07-11] MEDS: HYDROmorphone INJ 2 MG/ML VIAL 0.4 MG IVP (20:23)
[2024-07-11] MEDS: PROMETHAZINE INJ 12.5 MG in SODIUM CHLORIDE 0.9% 50 ML 2.5 MG IV (21:30)
[2024-07-12] VITALS (11 sets, daily range): BP systolic 86–116; BP diastolic 37–83; PULSE 57–113; RESP 12–23; TEMP 36.2–37; O2SAT 92–100
[2024-07-12] MEDS: HYDROmorphone INJ 2 MG/ML VIAL 0.4 MG IVP ×2 (01:05→19:49)
[2024-07-12] MEDS: PROMETHAZINE INJ 12.5 MG in SODIUM CHLORIDE 0.9% 50 ML 2.5 MG IV ×3 (04:07→23:47)
[2024-07-12] MEDS: PANTOPRAZOLE INJ 40 MG VIAL IVP (08:31)
[2024-07-12] MEDS: RINGERS LACTATED 1000 ML 1,000 ML 125 ML IV ×2 (08:32→23:51)
--- NOTE | 2024-07-12 11:03 | PC.SS ---
Adamaris Bai is a 18-year-old female admitted to [facility] for Foreign Body in Esophagus. . SS conducted bedside contact with the patient to complete initial assessment and to discuss discharge planning.? Patient confirmed demographic information. Patient identifies her significant other Conrado Naga [phone]. Patient resides at home with family. Pt states she is able to complete all ADL?s independently, no need for any source of DME. Pts PCP is Dr. Neumann at [facility] last visit was 2 weeks. and pharmacy of choice is [facility] in [place]. DC option discussed and pt wishes to return home. Pt stated [facility] provide transportation upon DC. No further intervention required at this time, social insurance adviser would be available to address any further concerns. DC Plan: Home Contact: Conrado Nielson [phone] PCP: Nel
--- NOTE | 2024-07-12 16:24 | ESOP_ITS ---
Date of Procedure 07/12/24 Pre Op Diagnosis Pyloric stenosis status post Scarlett fundoplication Post Op Diagnosis Same. Procedure Laparoscopic pyloroplasty on 07/12/2024 Findings This patient has a thick pyloric sphincter which did not open during the endoscopic procedure. She has been having problem with the gastric drainage and that produces postprandial bloating. Upon insertion of the laparoscope it was noted that the stomach was all bloated and large. Division of the pyloric sphincter showed is very thick sphincter. There were adhesions other than that there would not be any remarkable findings. Procedure Description Patient was interviewed in the preop holding area and the procedure was discussed in detail. Risk benefits and alternatives were also discussed and informed consent is obtained. The patient was then brought to the operating room by the nursing staff. The patient was positioned in supine position on the operating table. Gen. anesthesia was administered in a satisfactory manner. The patient was positioned in the modified lithotomy position in the [facility]. Patient was given prophylactic IV antibiotics half an hour before the procedure started. The Flowtron's are applied to both legs is anti-embolism mechanism. The chest abdomen and genitalia and the legs are prepped and draped in usual manner. An open laparoscopic procedure is carried out and balloon cannula is inserted through the supraumbilical incision. There were adhesions to the peritoneal side of the linea alba and lysis of adhesions was required to insert the balloon cannula. After that the pneumoperitoneum is achieved. The patient is positioned in the reverse Trendelenburg position. The 30? scope is used. Under direct vision a 5 mm cannulae is inserted in the subxiphoid location, 10 mm cannula is inserted in the left midclavicular location, a 10 mm cannula is inserted in the left anterior axillary line and a 5 mm cannula is inserted in the right midclavicular line. A Perfecto retractor is used through the subxiphoid incision to retract the left lobe of the liver to the right side. The prepyloric vein and the pyloric sphincter were identified. The harmonic ultrasonic yvan are used to divide the pyloric sphincter. About 3 cm of stomach and 3 cm of duodenum were divided in the line. The divided pyloric s phincter was visualized. After adequate pylorotomy was carried out in a longitudinal manner it was closed transversely. This was done with 3-0 Ethibond interrupted sutures by intra and extracorporeal technique. After the pyloroplasty was completed omentum was brought over and sutured to the duodenum and the stomach as a second layer of protection from leakage. The Perfecto retractor is removed under direct vision. All the cannulas are removed under laparoscopic vision and there is no bleeding from the cannula site incisions. The balloon cannula is removed and the pneumoperitoneum is allowed to escape. The midline incision is closed in layers. The fascia is approximated by 0 Vicryl continuous sutures. The subcutaneous tissue is approximated by 3-0 chromic suture and the skin is approximated by 4-0 Monocryl subcuticular sutures. The trocar site incisions are closed with the 3-0 chromic and a 4-0 Monocryl subcuticular stitches. Steri-Strips were applied. sterile dressings are applied. The patient tolerated the procedure very well and is transferred to the recovery room in satisfactory condition. Anesthesia GETA Drains None. Implants None. Pathology / specimen None Estimated Blood Loss 10 Condition Stable Disposition PACU Surgeon Sathish Dougherty MD Surgical Staff Operation Date: 07/12/24 15:10 Case Staff Anesthesiologist: Iván Amanad RN First Assistant: Libertad Fernandes RN recreation therapy aides teacher Amarilis salesperson surgical appliances
--- NOTE | 2024-07-12 16:35 | SUR.PHASEI ---
pt received from OR in recovery bay 1. pt obtunded, breathing unlabored on oxymask 8l, oral airway in place. v/s stable. pt dressing to abd x5 cdi. report received from Dr. Benitez and Osmel APPIAH.
[2024-07-12] MEDS: fentaNYL CIT INJ 50 mCg/ML AMP 2ML 25 MCG IV ×4 (16:46→17:36)
[2024-07-12] MEDS: ONDANSETRON INJ 2 MG/ML INJ 2 ML 4 MG IV (17:06)
--- NOTE | 2024-07-12 17:50 | SUR.PHASEI ---
pt awake and alert, breathing unlabored on room air. v/s stable. pt dressing to abd x5 cdi. report called to Malika APPIAH. pt will be transferred to room at this time.
[2024-07-12] MEDS: ACETAMINOPHEN IVPB 1,000 MG/100 ML VIAL 250 MG IV (18:17)
[2024-07-12] MEDS: KETOROLAC INJ 30 MG/ML VIAL IVP ×2 (18:17→23:41)
[2024-07-13] VITALS (9 sets, daily range): BP systolic 92–109; BP diastolic 56–69; PULSE 68–105; RESP 16–97; TEMP 36.3–36.9; O2SAT 92–98
--- NOTE | 2024-07-13 00:41 | PC.NURSE ---
Dr. Dougherty called was made aware pt is reporting pain of 8 to 9 on pain scale of (0-10) after administration of IV Dilaudid she starts to dry heave. Verbal order, received, read back and carried out.
--- NOTE | 2024-07-13 01:27 | PC.NURSE ---
called Dr. Dougherty, made him aware pharmacy, recommends use of demerol for shivering and every 3-4 hours, telephone order taken for hydromorphone 1 mg IVP every 4 hours, orders received, read back, and carried out.
[2024-07-13] MEDS: HYDROmorphone INJ 2 MG/ML VIAL 1 MG IVP (02:10)
[2024-07-13] MEDS: PROMETHAZINE INJ 12.5 MG in SODIUM CHLORIDE 0.9% 50 ML 2.5 MG IV ×4 (04:14→17:20)
[2024-07-13] MEDS: ACETAMINOPHEN IVPB 1,000 MG/100 ML VIAL 250 MG IV ×3 (05:11→17:07)
[2024-07-13] MEDS: KETOROLAC INJ 30 MG/ML VIAL IVP ×4 (05:12→23:44)
[2024-07-13] MEDS: GABAPENTIN 100 MG CAPSULE 200 MG PO (08:30)
[2024-07-13] MEDS: PANTOPRAZOLE INJ 40 MG VIAL IVP (08:33)
[2024-07-13] MEDS: RINGERS LACTATED 1000 ML 1,000 ML 125 ML IV ×2 (09:45→21:20)
--- NOTE | 2024-07-13 09:45 | PC.NURSE ---
pt. ambulated 30 feet in the hallway before returning to the bed. Pt. ambulated with the noted fatigue. no signs of diziness or shortness of breath observed. . Assisted back to bed with stable gait.
--- NOTE | 2024-07-13 12:54 | PD.SURPROG ---
Documentation for date of: 07/13/24 Subjective Subjective Brief History: This 18 years old female has a history of Scarlett fundoplication for longstanding gastroesophageal reflux. She went to the emergency room with complaints of nausea vomiting and dysphagia and gastric bloating. Initial evaluation was carried out in the emergency room and it was noted that 2 weeks ago also she had gone to the emergency room. There was no essential findings at the CAT scan at that time and it was felt that new CAT scan is not necessary. Right she has developed pyloric stenosis and difficulty emptying the stomach as well as sometimes the food is getting stuck in the esophagus. She has a previous history of upper endoscopy and dilatation that helped her quite a bit however she continues to have difficulty in emptying the stomach and she requires further evaluation and management. Last time when she had upper GI endoscopy at that time she said that she was n.p.o. for 48 hours however the stomach had significant amount of food residue that had not emptied the stomach. She was placed on Reglan therapy that helped her to empty the stomach but is not completely effective at this time. She will undergo upper GI endoscopy possible dilatation possible biopsy. She might also be a candidate for pyloroplasty. Risk benefits and alternatives were discussed with the patient and informed consent is obtained. July 13, 2024 progress note postop day 1 Patient had nausea overnight because of the Dilaudid injection currently she does not have much pain and Dilaudid would be stopped. Will continue with Toradol and IV acetaminophen. She is getting out of the bed and ambulating in the she says she is not able to have regular food. She does have complaints of some abdominal pain. Continue with the clear liquid diet for a period of time. The Carrillo catheter was removed. Patient is voiding. Exam Vital Signs Temp Pulse Resp BP Pulse Ox O2 Del Method O2 Flow Rate 97.4 F 93 16 95/56 L 97 Room Air 4 07/13/24 12:00 07/13/24 12:48 07/13/24 12:48 07/13/24 12:00 07/13/24 12:00 07/13/24 12:07/12/24 16:50 Narrative Exam Soft and nondistended incisional tenderness is present. Breath sounds are reduced on both the sides. Patient needs help ambulating. Extremities are unremarkable Assessment & Plan Diagnosis (1) Pyloric stenosis: Status: Acute (2) S/P laparoscopic fundoplication: Status: Acute Plan Continue with liquid diet we will repeat the labs. Assessment for ambulation. Procedures Procedures Laparoscopic pyloroplasty on 07/12/2024
[2024-07-13 14:08] LABS: Basophils % (Auto) 0 % (0-2.5); Eosinophils % (Auto) 0 % (0-10); Hematocrit 36.6 % (36.0-46.0); Hemoglobin 11.9 g/dL (12.0-16.0); Immature Granulocytes % (Auto) 0 % (0-0); Immature Granulocytes Auto 0.05 Thou/mm3 (0.00-0.00); Lymphocytes # (Auto) 1.4 Thou/mm3 (1.0-4.8); Lymphocytes % (Auto) 9 % (10-50); Mean Corpuscular HGB Conc 32.5 g/dl (31.0-37.0); Mean Corpuscular Hemoglobin 24.9 pg (25.0-35.0); Mean Corpuscular Volume 77 fL (80-100); Monocytes # (Auto) 1.4 Thou/mm3 (0.0-0.8); Monocytes % (Auto) 10 % (0-12); Neutrophils # (Auto) 11.8 Thou/mm3 (1.8-7.7); Neutrophils % (Auto) 81 % (37-80); Nucleated Red Blood Cell % 0 /100 WBC (0); Platelet Count 304 Thou/mm3 (140-440); RDW Standard Deviation 40.4 fL (36.4-46.3); Red Blood Count 4.77 Miln/mm3 (4.00-5.20); White Blood Count 14.6 Thou/mm3 (4.5-11.0)
[2024-07-13 14:40] LABS: Alanine Aminotransferase 172 U/L (10-49); Albumin, Serum 3.9 gm/dL (3.5-5.0); Albumin/Globulin Ratio 1.5 (1.2-2.2); Alkaline Phosphatase 55 U/L (46-116); Anion Gap 12 (7-16); Aspartate Amino Transferase 185 U/L (0-34); BUN/Creatinine Ratio 8 Ratio (12-20); Bilirubin,Total 0.9 mg/dL (0.3-1.2); Blood Urea Nitrogen < 5 mg/dL (9-23); Calcium (Corrected) 9.1 mg/dL (8.5-10.1); Carbon Dioxide 21.6 mMol/L (20.0-31.0); Chloride 105 mMol/L (98-107); Creatinine (Component) 0.6 mg/dL (0.6-1.3); Estimated Creatinine Clearance 143.8 mL/min (>60); Globulin 2.6 gm/dL (2.3-3.5); Glucose 110 mg/dL (74-106); Magnesium 1.9 mg/dL (1.6-2.6); Osmolality,Calculated 275 (275-295); Potassium 3.4 mMol/L (3.4-5.1); Sodium 139 mMol/L (136-145); Total Protein 6.5 gm/dL (5.7-8.2); eGFR > 60 See Note
[2024-07-14] VITALS (8 sets, daily range): BP systolic 96–109; BP diastolic 57–78; PULSE 58–87; RESP 17–98; TEMP 36.1–36.8; O2SAT 96–100
[2024-07-14] MEDS: HYDROmorphone INJ 2 MG/ML VIAL 1 MG IVP ×4 (03:54→21:19)
[2024-07-14] MEDS: PROMETHAZINE INJ 12.5 MG in SODIUM CHLORIDE 0.9% 50 ML 2.5 MG IV ×4 (03:54→18:05)
--- NOTE | 2024-07-14 04:18 | XR_ITS ---
Examination: AP chest single view Technique one AP portable upright chest single view Exam date and time: July 14, 2024 at 0324 hrs. Indications: Post orogastric tube placement Findings: There is free air beneath right hemidiaphragm Orogastric tube in the stomach satisfactory position. Normal heart size No pneumonia or pulmonary edema Impression: Free air beneath right hemidiaphragm, clinical correlation advised Orogastric tube in the stomach satisfactory position
[2024-07-14] MEDS: KETOROLAC INJ 30 MG/ML VIAL IVP ×3 (05:25→18:03)
[2024-07-14] MEDS: RINGERS LACTATED 1000 ML 1,000 ML 125 ML IV (05:25)
--- NOTE | 2024-07-14 05:59 | XR_ITS ---
Examination: Upper GI series with KUB Fluoroscopy 11 spot fluoroscopic films of the stomach Exam date and time: July 14, 2024 at 1040 hours INDICATIONS: Nausea vomiting abdominal pain today FINDINGS: 120 cc Gastrografin administered 11 spot fluoroscopic films of the stomach obtained as well as immediate and 10 minute delayed abdomen films Severe mucosal edema in the body and gastric antrum Also noted in the antral region on multiple films Contrast does opacify the duodenal sweep IMPRESSION: Findings most consistent with gastric ulcer Fluoroscopy 0.2 minutes radiation dose 25.69 milligray 11 spot fluoroscopic films
--- NOTE | 2024-07-14 06:08 | PC.NURSE ---
Dr. Dougherty made aware of x-ray abnormal results, orders received, read back, and carried out
[2024-07-14] MEDS: PANTOPRAZOLE INJ 40 MG VIAL IVP (08:46)
[2024-07-14 13:15] LABS: Basophils # (Auto) 0.1 Thou/mm3 (0.0-0.2); Basophils % (Auto) 0 % (0-2.5); Eosinophils % (Auto) 0 % (0-10); Hematocrit 35.9 % (36.0-46.0); Hemoglobin 11.5 g/dL (12.0-16.0); Immature Granulocytes % (Auto) 0 % (0-0); Immature Granulocytes Auto 0.05 Thou/mm3 (0.00-0.00); Lymphocytes # (Auto) 3.2 Thou/mm3 (1.0-4.8); Lymphocytes % (Auto) 28 % (10-50); Mean Corpuscular Hemoglobin 24.9 pg (25.0-35.0); Mean Corpuscular Volume 78 fL (80-100); Monocytes # (Auto) 1.1 Thou/mm3 (0.0-0.8); Monocytes % (Auto) 10 % (0-12); Neutrophils # (Auto) 6.9 Thou/mm3 (1.8-7.7); Neutrophils % (Auto) 61 % (37-80); Nucleated Red Blood Cell % 0 /100 WBC (0); Platelet Count 302 Thou/mm3 (140-440); RDW Standard Deviation 41.8 fL (36.4-46.3); Red Blood Count 4.62 Miln/mm3 (4.00-5.20); White Blood Count 11.3 Thou/mm3 (4.5-11.0)
[2024-07-14 13:39] LABS: Alanine Aminotransferase 230 U/L (10-49); Albumin, Serum 3.9 gm/dL (3.5-5.0); Albumin/Globulin Ratio 1.6 (1.2-2.2); Alkaline Phosphatase 50 U/L (46-116); Anion Gap 13 (7-16); Aspartate Amino Transferase 162 U/L (0-34); BUN/Creatinine Ratio 8 Ratio (12-20); Bilirubin,Total 0.7 mg/dL (0.3-1.2); Blood Urea Nitrogen < 5 mg/dL (9-23); Calcium 9.1 mg/dL (8.3-10.6); Calcium (Corrected) 9.2 mg/dL (8.5-10.1); Carbon Dioxide 22.8 mMol/L (20.0-31.0); Chloride 107 mMol/L (98-107); Creatinine (Component) 0.6 mg/dL (0.6-1.3); Estimated Creatinine Clearance 143.8 mL/min (>60); Globulin 2.5 gm/dL (2.3-3.5); Glucose 98 mg/dL (74-106); Magnesium 1.9 mg/dL (1.6-2.6); Osmolality,Calculated 282 (275-295); Potassium 3.3 mMol/L (3.4-5.1); Sodium 143 mMol/L (136-145); Total Protein 6.4 gm/dL (5.7-8.2); eGFR > 60 See Note
--- NOTE | 2024-07-14 16:09 | PC.SS ---
Follow up note: Pt will have small bowel series. Pt is on IV fluids. Pt will return home upon dc.
--- NOTE | 2024-07-14 18:27 | PD.SURPROG ---
Documentation for date of: 07/14/24 Subjective Subjective Brief History: This 18 years old female has a history of Scarlett fundoplication for longstanding gastroesophageal reflux. She went to the emergency room with complaints of nausea vomiting and dysphagia and gastric bloating. Initial evaluation was carried out in the emergency room and it was noted that 2 weeks ago also she had gone to the emergency room. There was no essential findings at the CAT scan at that time and it was felt that new CAT scan is not necessary. Right she has developed pyloric stenosis and difficulty emptying the stomach as well as sometimes the food is getting stuck in the esophagus. She has a previous history of upper endoscopy and dilatation that helped her quite a bit however she continues to have difficulty in emptying the stomach and she requires further evaluation and management. Last time when she had upper GI endoscopy at that time she said that she was n.p.o. for 48 hours however the stomach had significant amount of food residue that had not emptied the stomach. She was placed on Reglan therapy that helped her to empty the stomach but is not completely effective at this time. She will undergo upper GI endoscopy possible dilatation possible biopsy. She might also be a candidate for pyloroplasty. Risk benefits and alternatives were discussed with the patient and informed consent is obtained. July 13, 2024 progress note postop day 1 Patient had nausea overnight because of the Dilaudid injection currently she does not have much pain and Dilaudid would be stopped. Will continue with Toradol and IV acetaminophen. She is getting out of the bed and ambulating in the she says she is not able to have regular food. She does have complaints of some abdominal pain. Continue with the clear liquid diet for a period of time. The Carrillo catheter was removed. Patient is voiding. July 14, 2024 progress note postop day 2 S/P Laparoscopic pyloroplasty due to tight pyloric stenosis. Patient has bipolar disorder currently not on meds as she had stopped several weeks ago to try reglan. She has had c/o distention and abdominal pain therefore I ordered NGT and upper GI x rays. Plain x rays showed free air but she had laparoscopy 2 days ago and GI series did not show any leakage and there is expected edema in the gastroduodenal region due to pyloroplasty. Duodenal sweep is not seen well due to the same reason. I have discussed her operative findings GI series findings and postop course with the patient. Currently she is comfortable with NGT. I plan to give her stomach rest with short term peripheral TPN and start reglan again as the gastric outlet anatomic obstruction is releaved with pyloroplasty. Patient wants a second opinion from Dr. Quinones. I will request Dr. Quinones for second opinion. Exam Vital Signs Temp Pulse Resp BP Pulse Ox O2 Del Method O2 Flow Rate 96.9 F 68 18 97/76 96 Room Air 4 07/14/24 16:00 07/14/24 16:00 07/14/24 16:00 07/14/24 16:00 07/14/24 16:00 07/14/24 12:00 07/12/24 16:50 Narrative Exam Patient appears more comfortable than yesterday. NGT is in place and has bile in it. Patient saw a small amount of flakes of blood in NGT. That is expected after pyloroplasty. Abdomen is nondistended. The dressings are dry and intact. Lungs are clear. Ext WNL. Results Results: Laboratory Laboratory results: results reviewed Results: Imaging Additional studies: Gastrograffin GI series and plain xrays and reports are reviewed. Assessment & Plan Diagnosis (1) Pyloric stenosis: Status: Acute (2) Bipolar disorder: Status: Acute Plan Keep NGT to low intermittent suction. Start Reglan for improving gastric emptying. Short tern PPN for caloric support. Request Dr. Quinones for second opinion. Procedures Procedure Date 07/12/24 Procedures Laparoscopic pyloroplasty on 07/12/2024 (2) Bipolar disorder Qualifiers: Active/Remission status: in partial remission
[2024-07-14] MEDS: ACETAMINOPHEN IVPB 1,000 MG/100 ML VIAL 250 MG IV (19:45)
[2024-07-14] MEDS: METOCLOPRAMIDE INJ 5 MG/ML VIAL 2 ML 10 MG IVP (21:19)
--- NOTE | 2024-07-14 21:46 | PD.IMCONS ---
HPI Data of Consult Requesting Physician: Sathish Dougherty MD Primary Care Provider: MARIE Conte Consult Narrative Reason for consult: Nausea vomiting, dysphagia History of present illness: 18 years old female evaluated at the request of her operating surgeon for symptoms of nausea vomiting and dysphagia She has extensive past medical history of surgical interventions as follows 07/20/2023 laparoscopic diaphragmatic 5 cm hiatal hernia repair with Scarlett fundoplication 07/10/2024 laparoscopic pyloroplasty 07/12/2024 EGD with 50 to [place] esophageal dilatation 07/14/2024 upper GI series which showed abnormal antrum with edema as well as the distal body cc:: cc: Sathish Dougherty MD Review of Systems Review of Systems Systems Reviewed: All systems reviewed, normal except as documented Past Medical History Surgical History OTHER SURGICAL HX: As in the history of present illness Meds Home Medications and Allergies Home Medications ?Medication ?Instructions ?Recorded ?Confirmed ?Type fluoxetine 20 mg capsule 40 mg PO DAILY 12/02/23 03/29/24 History olanzapine 5 mg tablet 10 mg PO HS 12/02/23 03/29/24 History Allergies Allergy/AdvReac Type Severity Reaction Status Date / Time milk Allergy Severe Hives Verified 07/11/24 09:20 pineapple Allergy Severe Swelling Verified 07/11/24 09:20 of Lip/Tongue/Throat Exam Vital Signs Temp Pulse Resp BP Pulse Ox O2 Del Method O2 Flow Rate 97.4 F 72 18 109/78 100 Room Air 4 07/14/24 20:00 07/14/24 20:00 07/14/24 20:00 07/14/24 20:00 07/14/24 20:00 07/14/24 12:00 07/12/24 16:50 Constitutional Comments: Alert oriented Routine Respiratory Exam Comments: Normal to auscultation Routine Abdominal Exam Comments: Soft nontender Results Labs 07/14/24 12:47 07/14/24 12:47 Labs: Short CBC 07/14/24 Range/Units 12:47 WBC 11.3 H (4.5-11.0) Thou/mm3 Hgb 11.5 L (12.0-16.0) g/dL Hct 35.9 L (36.0-46.0) % Plt Count 302 (140-440) Thou/mm3 BMP 07/14/24 12:47 Sodium 143 Potassium 3.3 L Chloride 107 Carbon Dioxide 22.8 BUN < 5 L Creatinine 0.6 Glucose 98 Calcium 9.1 Liver Function 07/14/24 Range/Units 12:47 Total Bilirubin 0.7 (0.3-1.2) mg/dL AST 162 H (0-34) U/L ALT 230 H (10-49) U/L Alkaline Phosphatase 50 (46-116) U/L Albumin 3.9 (3.5-5.0) gm/dL Assessment and Plan Additional Assessment & Plan Additional Plan: # Nausea vomiting complicated by gastric procedure seen on endoscopy with presence of the food in the body of the stomach Esophageal dilatation not helpful Laparoscopic pyloroplasty not helpful Suggestions Nuclear medicine gastric emptying study further evaluation after above Thank you very much for the opportunity to participate in care of this patient
[2024-07-15] VITALS (7 sets, daily range): BP systolic 90–119; BP diastolic 54–83; PULSE 51–85; RESP 16–98; TEMP 36.1–37.1; O2SAT 96–98; BMI 31.2
[2024-07-15] MEDS: KETOROLAC INJ 30 MG/ML VIAL IVP ×4 (00:04→17:19)
[2024-07-15] MEDS: RINGERS LACTATED 1000 ML 1,000 ML 125 ML IV ×2 (00:14→10:56)
[2024-07-15] MEDS: ACETAMINOPHEN IVPB 1,000 MG/100 ML VIAL 250 MG IV ×3 (01:10→13:57)
[2024-07-15] MEDS: HYDROmorphone INJ 2 MG/ML VIAL 1 MG IVP ×3 (03:52→22:20)
[2024-07-15] MEDS: METOCLOPRAMIDE INJ 5 MG/ML VIAL 2 ML 10 MG IVP ×3 (05:07→22:07)
[2024-07-15] MEDS: PANTOPRAZOLE INJ 40 MG VIAL IVP (07:45)
--- NOTE | 2024-07-15 09:24 | XR_ITS ---
Examination: Nuclear medicine gastric emptying study Exam date and time: July 16, 2024 1410 hours INDICATIONS: Nausea vomiting with feeding 18 years TECHNIQUE AND FINDINGS: Patient ingested 2.0 mCi technetium 99m sulfur colloid but vomited the material with no gastric imaging IMPRESSION: Patient could not cooperate for the study
--- NOTE | 2024-07-15 10:41 | PC.DIETICIAN ---
Dietitian consult: Recommend start PPN: D5% AA4.25% at 100 ml/hr with 500 ml 20% lipid 3 times a week (). Start at 50 ml/hr for 8 hrs, then 75mlx8 hrs then advance to goal of 100 ml/hr. provides: 2400 ml volume, 102 g AA, 120 g dextrose, 1041 total calories, NPC 837. GIR=1.08mg/kg/min/ LIR=0.55g/kg. Pt states she has gluten food allergy, will add to allergy list. If transitions to oral diet, make sure Gluten free, Low lactose per pt request
[2024-07-15] MEDS: PROMETHAZINE INJ 12.5 MG in SODIUM CHLORIDE 0.9% 50 ML 2.5 MG IV ×2 (10:55→16:52)
[2024-07-15] MEDS: FAT EMULSIONS 20% IV 500 ML 32 ML IV (17:19)
--- NOTE | 2024-07-15 18:42 | PD.SURPROG ---
Documentation for date of: 07/15/24 Subjective Subjective Brief History: This 18 years old female has a history of Scarlett fundoplication for longstanding gastroesophageal reflux. She went to the emergency room with complaints of nausea vomiting and dysphagia and gastric bloating. Initial evaluation was carried out in the emergency room and it was noted that 2 weeks ago also she had gone to the emergency room. There was no essential findings at the CAT scan at that time and it was felt that new CAT scan is not necessary. Right she has developed pyloric stenosis and difficulty emptying the stomach as well as sometimes the food is getting stuck in the esophagus. She has a previous history of upper endoscopy and dilatation that helped her quite a bit however she continues to have difficulty in emptying the stomach and she requires further evaluation and management. Last time when she had upper GI endoscopy at that time she said that she was n.p.o. for 48 hours however the stomach had significant amount of food residue that had not emptied the stomach. She was placed on Reglan therapy that helped her to empty the stomach but is not completely effective at this time. She will undergo upper GI endoscopy possible dilatation possible biopsy. She might also be a candidate for pyloroplasty. Risk benefits and alternatives were discussed with the patient and informed consent is obtained. July 13, 2024 progress note postop day 1 Patient had nausea overnight because of the Dilaudid injection currently she does not have much pain and Dilaudid would be stopped. Will continue with Toradol and IV acetaminophen. She is getting out of the bed and ambulating in the she says she is not able to have regular food. She does have complaints of some abdominal pain. Continue with the clear liquid diet for a period of time. The Carrillo catheter was removed. Patient is voiding. July 14, 2024 progress note postop day 2 S/P Laparoscopic pyloroplasty due to tight pyloric stenosis. Patient has bipolar disorder currently not on meds as she had stopped several weeks ago to try reglan. She has had c/o distention and abdominal pain therefore I ordered NGT and upper GI x rays. Plain x rays showed free air but she had laparoscopy 2 days ago and GI series did not show any leakage and there is expected edema in the gastroduodenal region due to pyloroplasty. Duodenal sweep is not seen well due to the same reason. I have discussed her operative findings GI series findings and postop course with the patient. Currently she is comfortable with NGT. I plan to give her stomach rest with short term peripheral TPN and start reglan again as the gastric outlet anatomic obstruction is releaved with pyloroplasty. Patient wants a second opinion from Dr. Quinones. I will request Dr. Quinones for second opinion. July 15, 2024 is not postop day #3 The patient was seen by Dr. Quinones and nuclear medicine gastric emptying test was ordered. The test was not done today because of nuclear medicine radioisotope was not available. Reportedly it will be done tomorrow. Today the patient is on NG tube suction small amount of suction is tried in suction canister. She was also started on peripheral parenteral nutrition. She has been taken off Dilaudid and now she has a less pain on Toradol and IV acetaminophen. She only has occasional pain. She is still getting nausea on trying to eat something or drink something. The nurse said that when she told her about drinking some water even before that she started experiencing nausea. This may be part of withdrawal of the narcotics that she has been getting for a period of past to 3 months. She had a bowel movement today and she has been walking in the room. All this was discussed with the patient and we will wait for the gastric emptying study in the nuclear medicine lab. There is a small amount of improvement will follow how she does over a period of next 2 to 3 days. Patient need to get out of the bed and ambulate in the hallways. Exam Vital Signs Temp Pulse Resp BP Pulse Ox O2 Del Method O2 Flow Rate 97.5 F 71 18 94/59 L 96 Room Air 4 07/15/24 12:07/15/24 12:07/15/24 12:07/15/24 12:07/15/24 12:07/15/24 12:07/12/24 16:50 Narrative Exam Maintained in the room alert and seem to be comfortable in the bed. NG tube is in place and is draining small amount of liquid. There is bilious liquid in the NG tube. Lungs are clear abdomen is nondistended and the laparoscopic incisions are healing normally. Extremities are unremarkable. Assessment & Plan Diagnosis (1) Pyloric stenosis: Status: Acute (2) H/O pyloroplasty: Status: Acute (3) History of Scarlett fundoplication: Status: Acute (4) Nausea & vomiting: Status: Acute (5) Bipolar disorder: Status: Acute Plan Continue with the nasogastric tube intermittent suction continue with PPN waiting for nuclear medicine gastric emptying study to be completed tomorrow. With all the narcotic pain medications that has already been done and continue with IV Toradol and acetaminophen. We will stop Reglan prior to the nuclear medicine gastric emptying study. Procedures Procedure Date 07/12/24 Procedures Laparoscopic pyloroplasty on 07/12/2024 (4) Nausea & vomiting Qualifiers: Vomiting type: unspecified Qualified Code(s): R11.2 - Nausea with vomiting, unspecified (5) Bipolar disorder Qualifiers: Active/Remission status: in partial remission Most recent bipolar episode type: mixed Qualified Code(s): F31.77 - Bipolar disorder, in partial remission, most recent episode mixed
--- NOTE | 2024-07-15 22:32 | PD.IMPROG ---
Documentation for date of: 07/15/24 Subjective Subjective Interval history: Radioisotope not available so a gastric emptying nuclear medicine scan postponed for tomorrow Exam Vital Signs Temp Pulse Resp BP Pulse Ox O2 Del Method O2 Flow Rate 98.2 F 79 18 103/79 97 Room Air 4 07/15/24 20:00 07/15/24 20:00 07/15/24 20:00 07/15/24 20:00 07/15/24 20:00 07/15/24 20:00 07/12/24 16:50 Objective Labs 07/14/24 12:47 07/14/24 12:47 Impressions Impression: Nausea and vomiting gastric motility disorder Nuclear medicine gastric emptying study Assessment & Plan A&P Narrative # Nausea vomiting complicated by gastric procedure seen on endoscopy with presence of the food in the body of the stomach Esophageal dilatation not helpful Laparoscopic pyloroplasty not helpful Suggestions Nuclear medicine gastric emptying study further evaluation after above Thank you very much for the opportunity to participate in care of this patient Time Spent With Patient Time: Total time spent is greater than 50% in coordination of care (as documented) at patient's floor/unit and/or counseling patient:
[2024-07-16] VITALS: BP 109/67; PULSE 66; RESP 16; TEMP 36.8; O2SAT 97
[2024-07-16] MEDS: KETOROLAC INJ 30 MG/ML VIAL IVP ×5 (00:53→23:38)
[2024-07-16 04:00] VITALS: BP 112/73; PULSE 76; RESP 17; TEMP 36.2; O2SAT 99
[2024-07-16 07:52] VITALS: BP 114/76; PULSE 84; RESP 16; TEMP 36.4; O2SAT 97
[2024-07-16] MEDS: PANTOPRAZOLE INJ 40 MG VIAL IVP (08:04)
--- NOTE | 2024-07-16 10:18 | PD.SURPROG ---
Documentation for date of: 07/16/24 Subjective Subjective Brief History: This 18 years old female has a history of Scarlett fundoplication for longstanding gastroesophageal reflux. She went to the emergency room with complaints of nausea vomiting and dysphagia and gastric bloating. Initial evaluation was carried out in the emergency room and it was noted that 2 weeks ago also she had gone to the emergency room. There was no essential findings at the CAT scan at that time and it was felt that new CAT scan is not necessary. Right she has developed pyloric stenosis and difficulty emptying the stomach as well as sometimes the food is getting stuck in the esophagus. She has a previous history of upper endoscopy and dilatation that helped her quite a bit however she continues to have difficulty in emptying the stomach and she requires further evaluation and management. Last time when she had upper GI endoscopy at that time she said that she was n.p.o. for 48 hours however the stomach had significant amount of food residue that had not emptied the stomach. She was placed on Reglan therapy that helped her to empty the stomach but is not completely effective at this time. She will undergo upper GI endoscopy possible dilatation possible biopsy. She might also be a candidate for pyloroplasty. Risk benefits and alternatives were discussed with the patient and informed consent is obtained. July 13, 2024 progress note postop day 1 Patient had nausea overnight because of the Dilaudid injection currently she does not have much pain and Dilaudid would be stopped. Will continue with Toradol and IV acetaminophen. She is getting out of the bed and ambulating in the she says she is not able to have regular food. She does have complaints of some abdominal pain. Continue with the clear liquid diet for a period of time. The Carrillo catheter was removed. Patient is voiding. July 14, 2024 progress note postop day 2 S/P Laparoscopic pyloroplasty due to tight pyloric stenosis. Patient has bipolar disorder currently not on meds as she had stopped several weeks ago to try reglan. She has had c/o distention and abdominal pain therefore I ordered NGT and upper GI x rays. Plain x rays showed free air but she had laparoscopy 2 days ago and GI series did not show any leakage and there is expected edema in the gastroduodenal region due to pyloroplasty. Duodenal sweep is not seen well due to the same reason. I have discussed her operative findings GI series findings and postop course with the patient. Currently she is comfortable with NGT. I plan to give her stomach rest with short term peripheral TPN and start reglan again as the gastric outlet anatomic obstruction is releaved with pyloroplasty. Patient wants a second opinion from Dr. Quinones. I will request Dr. Quinones for second opinion. July 15, 2024 progress note postop day #3 The patient was seen by Dr. Quinones and nuclear medicine gastric emptying test was ordered. The test was not done today because of nuclear medicine radioisotope was not available. Reportedly it will be done tomorrow. Today the patient is on NG tube suction small amount of suction is tried in suction canister. She was also started on peripheral parenteral nutrition. She has been taken off Dilaudid and now she has a less pain on Toradol and IV acetaminophen. She only has occasional pain. She is still getting nausea on trying to eat something or drink something. The nurse said that when she told her about drinking some water even before that she started experiencing nausea. This may be part of withdrawal of the narcotics that she has been getting for a period of past to 3 months. She had a bowel movement today and she has been walking in the room. All this was discussed with the patient and we will wait for the gastric emptying study in the nuclear medicine lab. There is a small amount of improvement will follow how she does over a period of next 2 to 3 days. Patient need to get out of the bed and ambulate in the hallways. July 16, 2024 progress note postop day 4 This patient is not having much of a problem with nausea at the age of the tube was clamped several hours ago she is tolerating that well and she is still n.p.o. for the nuclear medicine test and she is walking around in the hallways without much of difficulty. She is not getting any pain medication. We will wait till the nuclear medicine gastric emptying test is done. Afternoon rounds: Patient went down for nuclear medicine test. [facility] medicine department took the NG tube out and then after that gave her some eggs with the isotope and the patient did not like the smell and threw it up so they could not finish the gastric emptying test. At this time she is walking around in the hallway she has been feeling a little bit better and she is able to take liquid diet. She says her throat is swollen because of the NG tube and that is why she is not able to eat solid food at this time. She is currently on PPN gaining her strength back. Exam Vital Signs Temp Pulse Resp BP Pulse Ox O2 Del Method O2 Flow Rate 97.6 F 84 16 114/76 97 Room Air 4 07/16/24 07:52 07/16/24 07:52 07/16/24 07:52 07/16/24 07:52 07/16/24 07:52 07/16/24 07:52 07/12/24 16:50 Narrative Exam The abdomen is soft and nontender nondistended bowel tones are normal patient is passing flatus lungs are clear extremities are unremarkable. She is observed sitting clear liquid diet that was ordered for this afternoon. Assessment & Plan Diagnosis (1) H/O pyloroplasty: Status: Acute (2) Bipolar disorder: Status: Acute (3) History of Scarlett fundoplication: Status: Acute (4) Nausea & vomiting: Status: Acute Assessment Additional comments: Upper GI series with Gastrografin did not show any distention of the stomach so the obstruction was relieved. Patient is slowly improving. Patient patient is not on her bipolar medications she is not getting IV narcotics. Also not getting Reglan. Plan Continue with the clear liquid diet allow the pyloroplasty to heal up. Continue with the clear liquid diet ambulated the hallways. Continue with PPN nutritional support. Procedures Procedure Date 07/12/24 Procedures Laparoscopic pyloroplasty on 07/12/2024 (2) Bipolar disorder Qualifiers: Active/Remission status: in partial remission Most recent bipolar episode type: mixed Qualified Code(s): F31.77 - Bipolar disorder, in partial remission, most recent episode mixed (4) Nausea & vomiting Qualifiers: Vomiting type: unspecified Qualified Code(s): R11.2 - Nausea with vomiting, unspecified
--- NOTE | 2024-07-16 10:26 | PC.SS ---
Follow up note: On PPN, on IV antibiotic, and has NG Tube. Pt will return home upon dc.
[2024-07-16 12:00] VITALS: BP 118/80; PULSE 91; RESP 18; TEMP 36.3; O2SAT 98
[2024-07-16 12:00] LABS: Magnesium 2.1 mg/dL (1.6-2.6); Phosphorous 3.2 mg/dL (2.4-5.1); Potassium 3.7 mMol/L (3.4-5.1)
[2024-07-16] MEDS: HYDROmorphone INJ 2 MG/ML VIAL 1 MG IVP (15:21)
[2024-07-16] MEDS: METOCLOPRAMIDE INJ 5 MG/ML VIAL 2 ML 10 MG IVP ×2 (15:21→22:09)
[2024-07-16 16:00] VITALS: BP 94/64; PULSE 70; RESP 17; TEMP 36.4; O2SAT 96
[2024-07-16] MEDS: RINGERS LACTATED 1000 ML 1,000 ML 50 ML IV (17:13)
--- NOTE | 2024-07-16 18:33 | PD.IMPROG ---
Documentation for date of: 07/16/24 Subjective Subjective Interval history: Nuclear medicine gastric emptying study was abandoned as patient was not able to tolerate the study DC the NGT clear liquid diet Exam Vital Signs Temp Pulse Resp BP Pulse Ox O2 Del Method O2 Flow Rate 97.5 F 70 17 94/64 96 Room Air 4 07/16/24 16:00 07/16/24 16:00 07/16/24 16:00 07/16/24 16:00 07/16/24 16:00 07/16/24 07:52 07/12/24 16:50 Objective Labs 07/14/24 12:47 07/16/24 11:30 Labs: Laboratory Results - last 24 hr 07/16/24 11:30 Potassium 3.7 Phosphorus 3.2 Magnesium 2.1 Impressions Impression: Nausea vomiting Gastric motility disorder at the moment postsurgical DC NGT only 100 cc of NGT suction in the last 12 hours Clear liquid diet Assessment & Plan A&P Narrative # Nausea vomiting complicated by gastric procedure seen on endoscopy with presence of the food in the body of the stomach Esophageal dilatation not helpful Laparoscopic pyloroplasty not helpful Suggestions Nuclear medicine gastric emptying study further evaluation after above Thank you very much for the opportunity to participate in care of this patient Time Spent With Patient Time: Total time spent is greater than 50% in coordination of care (as documented) at patient's floor/unit and/or counseling patient:
[2024-07-16 20:00] VITALS: BP 89/55; PULSE 69; RESP 17; TEMP 36.3; O2SAT 98
[2024-07-16] MEDS: GABAPENTIN 100 MG CAPSULE 200 MG PO (21:28)
[2024-07-17] VITALS: BP 98/69; PULSE 77; RESP 16; TEMP 36.7; O2SAT 95
[2024-07-17 04:00] VITALS: BP 91/65; PULSE 76; RESP 18; TEMP 36.1; O2SAT 97
[2024-07-17] MEDS: RINGERS LACTATED 1000 ML 1,000 ML 50 ML IV (04:33)
[2024-07-17] MEDS: KETOROLAC INJ 30 MG/ML VIAL IVP ×3 (05:02→17:31)
[2024-07-17] MEDS: METOCLOPRAMIDE INJ 5 MG/ML VIAL 2 ML 10 MG IVP ×3 (05:03→20:56)
[2024-07-17 08:00] VITALS: BP 111/76; PULSE 66; RESP 18; TEMP 36.1; O2SAT 97
[2024-07-17] MEDS: PANTOPRAZOLE INJ 40 MG VIAL IVP (09:03)
[2024-07-17] MEDS: PROMETHAZINE INJ 12.5 MG in SODIUM CHLORIDE 0.9% 50 ML 2.5 MG IV (09:30)
[2024-07-17 09:56] LABS: Basophils # (Auto) 0.1 Thou/mm3 (0.0-0.2); Basophils % (Auto) 1 % (0-2.5); Eosinophils # (Auto) 0.3 Thou/mm3 (0.0-0.5); Eosinophils % (Auto) 4 % (0-10); Hematocrit 36.4 % (36.0-46.0); Hemoglobin 11.7 g/dL (12.0-16.0); Immature Granulocytes % (Auto) 0 % (0-0); Immature Granulocytes Auto 0.02 Thou/mm3 (0.00-0.00); Lymphocytes # (Auto) 2.6 Thou/mm3 (1.0-4.8); Lymphocytes % (Auto) 34 % (10-50); Mean Corpuscular HGB Conc 32.1 g/dl (31.0-37.0); Mean Corpuscular Volume 78 fL (80-100); Monocytes # (Auto) 0.8 Thou/mm3 (0.0-0.8); Monocytes % (Auto) 11 % (0-12); Neutrophils % (Auto) 51 % (37-80); Nucleated Red Blood Cell % 0 /100 WBC (0); Platelet Count 285 Thou/mm3 (140-440); RDW Standard Deviation 41.5 fL (36.4-46.3); Red Blood Count 4.68 Miln/mm3 (4.00-5.20); White Blood Count 7.8 Thou/mm3 (4.5-11.0)
[2024-07-17 10:26] LABS: Alanine Aminotransferase 71 U/L (10-49); Albumin, Serum 3.8 gm/dL (3.5-5.0); Albumin/Globulin Ratio 1.4 (1.2-2.2); Alkaline Phosphatase 48 U/L (46-116); Anion Gap 10 (7-16); Aspartate Amino Transferase 16 U/L (0-34); BUN/Creatinine Ratio 18 Ratio (12-20); Bilirubin,Total 0.3 mg/dL (0.3-1.2); Blood Urea Nitrogen 7 mg/dL (9-23); Calcium (Corrected) 9.2 mg/dL (8.5-10.1); Carbon Dioxide 22.7 mMol/L (20.0-31.0); Chloride 108 mMol/L (98-107); Creatinine (Component) 0.4 mg/dL (0.6-1.3); Estimated Creatinine Clearance 210.8 mL/min (>60); Globulin 2.7 gm/dL (2.3-3.5); Glucose 113 mg/dL (74-106); Osmolality,Calculated 280 (275-295); Potassium 3.5 mMol/L (3.4-5.1); Sodium 141 mMol/L (136-145); Total Protein 6.5 gm/dL (5.7-8.2); eGFR > 60 See Note
[2024-07-17 12:00] VITALS: BP 100/66; PULSE 54; RESP 18; TEMP 35.9; O2SAT 96
[2024-07-17 16:00] VITALS: BP 106/73; PULSE 75; RESP 18; TEMP 36.1; O2SAT 97
[2024-07-17] MEDS: FAT EMULSIONS 20% IV 500 ML 32 ML IV (17:30)
[2024-07-17 20:00] VITALS: BP 98/75; PULSE 72; RESP 16; TEMP 36.5; O2SAT 94
--- NOTE | 2024-07-17 20:05 | ESPR_ITS ---
Documentation for date of: 07/17/24 Subjective Subjective Interval history: Patient evaluated Started on clear liquid diet Exam Vital Signs Temp Pulse Resp BP Pulse Ox O2 Del Method O2 Flow Rate 97.0 F 75 18 106/73 97 Room Air 4 07/17/24 16:00 07/17/24 16:00 07/17/24 16:00 07/17/24 16:00 07/17/24 16:00 07/17/24 16:00 07/12/24 16:50 Objective Labs 07/17/24 09:34 07/17/24 09:34 Labs: Laboratory Results - last 24 hr 07/17/24 09:34 WBC 7.8 RBC 4.68 Hgb 11.7 L Hct 36.4 MCV 78 L MCH 25.0 MCHC 32.1 RDW Std Deviation 41.5 Plt Count 285 Neut % (Auto) 51 Lymph % (Auto) 34 [place] % (Auto) 11 Eos % (Auto) 4 Baso % (Auto) 1 Neut # (Auto) 4.0 Lymph # (Auto) 2.6 [place] # (Auto) 0.8 Eos # (Auto) 0.3 Baso # (Auto) 0.1 Immature Gran # (Auto) 0.02 H Absolute Nucleated RBC 0.00 Immature Gran % 0 Nucleated RBC % 0 Sodium 141 Potassium 3.5 Chloride 108 H Carbon Dioxide 22.7 Anion Gap 10 BUN 7 L Creatinine 0.4 L Estim Creat Clear Calc 210.8 eGFR > 60 BUN/Creatinine Ratio 18 Glucose 113 H Calculated Osmolality 280 Calcium 9.0 Corrected Calcium 9.2 Total Bilirubin 0.3 AST 16 ALT 71 H Alkaline Phosphatase 48 Total Protein 6.5 Albumin 3.8 Globulin 2.7 Albumin/Globulin Ratio 1.4 Impressions Impression: Status post pyloroplasty Liquid diet NGT out Assessment & Plan A&P Narrative # Nausea vomiting complicated by gastric procedure seen on endoscopy with presence of the food in the body of the stomach Esophageal dilatation not helpful Laparoscopic pyloroplasty not helpful Suggestions Nuclear medicine gastric emptying study further evaluation after above Thank you very much for the opportunity to participate in care of this patient Time Spent With Patient Time: Total time spent is greater than 50% in coordination of care (as documented) at patient's floor/unit and/or counseling patient:
[2024-07-17] MEDS: ACETAMINOPHEN 325 MG TABLET 650 MG PO (20:56)
--- NOTE | 2024-07-17 22:18 | PD.SURPROG ---
Documentation for date of: 07/17/24 Subjective Subjective Brief History: This 18 years old female has a history of Scarlett fundoplication for longstanding gastroesophageal reflux. She went to the emergency room with complaints of nausea vomiting and dysphagia and gastric bloating. Initial evaluation was carried out in the emergency room and it was noted that 2 weeks ago also she had gone to the emergency room. There was no essential findings at the CAT scan at that time and it was felt that new CAT scan is not necessary. Right she has developed pyloric stenosis and difficulty emptying the stomach as well as sometimes the food is getting stuck in the esophagus. She has a previous history of upper endoscopy and dilatation that helped her quite a bit however she continues to have difficulty in emptying the stomach and she requires further evaluation and management. Last time when she had upper GI endoscopy at that time she said that she was n.p.o. for 48 hours however the stomach had significant amount of food residue that had not emptied the stomach. She was placed on Reglan therapy that helped her to empty the stomach but is not completely effective at this time. She will undergo upper GI endoscopy possible dilatation possible biopsy. She might also be a candidate for pyloroplasty. Risk benefits and alternatives were discussed with the patient and informed consent is obtained. July 13, 2024 progress note postop day 1 Patient had nausea overnight because of the Dilaudid injection currently she does not have much pain and Dilaudid would be stopped. Will continue with Toradol and IV acetaminophen. She is getting out of the bed and ambulating in the she says she is not able to have regular food. She does have complaints of some abdominal pain. Continue with the clear liquid diet for a period of time. The Carrillo catheter was removed. Patient is voiding. July 14, 2024 progress note postop day 2 S/P Laparoscopic pyloroplasty due to tight pyloric stenosis. Patient has bipolar disorder currently not on meds as she had stopped several weeks ago to try reglan. She has had c/o distention and abdominal pain therefore I ordered NGT and upper GI x rays. Plain x rays showed free air but she had laparoscopy 2 days ago and GI series did not show any leakage and there is expected edema in the gastroduodenal region due to pyloroplasty. Duodenal sweep is not seen well due to the same reason. I have discussed her operative findings GI series findings and postop course with the patient. Currently she is comfortable with NGT. I plan to give her stomach rest with short term peripheral TPN and start reglan again as the gastric outlet anatomic obstruction is releaved with pyloroplasty. Patient wants a second opinion from Dr. Quinones. I will request Dr. Quinones for second opinion. July 15, 2024 progress note postop day #3 The patient was seen by Dr. Quinones and nuclear medicine gastric emptying test was ordered. The test was not done today because of nuclear medicine radioisotope was not available. Reportedly it will be done tomorrow. Today the patient is on NG tube suction small amount of suction is tried in suction canister. She was also started on peripheral parenteral nutrition. She has been taken off Dilaudid and now she has a less pain on Toradol and IV acetaminophen. She only has occasional pain. She is still getting nausea on trying to eat something or drink something. The nurse said that when she told her about drinking some water even before that she started experiencing nausea. This may be part of withdrawal of the narcotics that she has been getting for a period of past to 3 months. She had a bowel movement today and she has been walking in the room. All this was discussed with the patient and we will wait for the gastric emptying study in the nuclear medicine lab. There is a small amount of improvement will follow how she does over a period of next 2 to 3 days. Patient need to get out of the bed and ambulate in the hallways. July 16, 2024 progress note postop day 4 This patient is not having much of a problem with nausea at the age of the tube was clamped several hours ago she is tolerating that well and she is still n.p.o. for the nuclear medicine test and she is walking around in the hallways without much of difficulty. She is not getting any pain medication. We will wait till the nuclear medicine gastric emptying test is done. Afternoon rounds: Patient went down for nuclear medicine test. Clear medicine department took the NG tube out and then after that gave her some eggs with the isotope and the patient did not like the smell and threw it up so they could not finish the gastric emptying test. At this time she is walking around in the hallway she has been feeling a little bit better and she is able to take liquid diet. She says her throat is swollen because of the NG tube and that is why she is not able to eat solid food at this time. She is currently on PPN gaining her strength back. July 17, 2024 progress note postop day #5 patient is able to take clear liquid diet is a prescribed but she is not taking much. She is not on any IV narcotic pain medication and the Toradol IV was discontinued. She will be on oral acetaminophen. She is not willing to get out of the bed and ambulate at this time. We will restart her Reglan as she says that she is feeling full after taking small amount of liquids. There are no other new complaints. She is passing flatus. Exam Vital Signs Temp Pulse Resp BP Pulse Ox O2 Del Method O2 Flow Rate 97.7 F 72 16 98/75 94 L Room Air 4 07/17/24 20:00 07/17/24 20:00 07/17/24 20:00 07/17/24 20:00 07/17/24 20:00 07/17/24 20:00 07/12/24 16:50 Narrative Exam Abdomen is soft and nontender and cardiopulmonary examination is unremarkable. Extremities are not remarkable. PPN he continues. Results Results: Laboratory Laboratory results: results reviewed Assessment & Plan Diagnosis (1) Bipolar disorder: Status: Acute (2) Pyloric stenosis: Status: Acute (3) S/P laparoscopic fundoplication: Status: Acute (4) Nausea & vomiting: Status: Acute Plan Continue clear liquid diet for about 10 days will discontinue PPN starting tomorrow and advance her to full liquid diet. Discharge planning for tomorrow. Procedures Procedure Date 07/12/24 Procedures Laparoscopic pyloroplasty on 07/12/2024 (1) Bipolar disorder Qualifiers: Active/Remission status: in partial remission Most recent bipolar episode type: mixed Qualified Code(s): F31.77 - Bipolar disorder, in partial remission, most recent episode mixed (4) Nausea & vomiting Qualifiers: Vomiting type: unspecified Qualified Code(s): R11.2 - Nausea with vomiting, unspecified
[2024-07-18] VITALS: BP 104/64; PULSE 64; RESP 16; TEMP 35.9; O2SAT 96
[2024-07-18] MEDS: RINGERS LACTATED 1000 ML 1,000 ML 50 ML IV ×2 (02:36→12:34)
[2024-07-18] MEDS: KETOROLAC INJ 30 MG/ML VIAL IVP ×2 (02:36→12:26)
[2024-07-18 04:00] VITALS: BP 97/61; PULSE 61; RESP 18; TEMP 35.9; O2SAT 97
[2024-07-18] MEDS: METOCLOPRAMIDE INJ 5 MG/ML VIAL 2 ML 10 MG IVP ×2 (05:47→14:23)
[2024-07-18 07:54] VITALS: BP 97/77; PULSE 85; RESP 16; TEMP 36.8; O2SAT 98
[2024-07-18] MEDS: PANTOPRAZOLE INJ 40 MG VIAL IVP (09:08)
[2024-07-18] MEDS: GABAPENTIN 100 MG CAPSULE 200 MG PO (09:08)
[2024-07-18 12:00] VITALS: BP 97/68; PULSE 85; RESP 16; TEMP 36.7; O2SAT 96
[2024-07-18 15:26] VITALS: BP 98/55; PULSE 98; RESP 16; TEMP 37.1; O2SAT 98
--- NOTE | 2024-07-18 17:40 | PD.SURPROG ---
Documentation for date of: 07/18/24 Subjective Subjective Brief History: This 18 years old female has a history of Scarlett fundoplication for longstanding gastroesophageal reflux. She went to the emergency room with complaints of nausea vomiting and dysphagia and gastric bloating. Initial evaluation was carried out in the emergency room and it was noted that 2 weeks ago also she had gone to the emergency room. There was no essential findings at the CAT scan at that time and it was felt that new CAT scan is not necessary. Right she has developed pyloric stenosis and difficulty emptying the stomach as well as sometimes the food is getting stuck in the esophagus. She has a previous history of upper endoscopy and dilatation that helped her quite a bit however she continues to have difficulty in emptying the stomach and she requires further evaluation and management. Last time when she had upper GI endoscopy at that time she said that she was n.p.o. for 48 hours however the stomach had significant amount of food residue that had not emptied the stomach. She was placed on Reglan therapy that helped her to empty the stomach but is not completely effective at this time. She will undergo upper GI endoscopy possible dilatation possible biopsy. She might also be a candidate for pyloroplasty. Risk benefits and alternatives were discussed with the patient and informed consent is obtained. July 13, 2024 progress note postop day 1 Patient had nausea overnight because of the Dilaudid injection currently she does not have much pain and Dilaudid would be stopped. Will continue with Toradol and IV acetaminophen. She is getting out of the bed and ambulating in the she says she is not able to have regular food. She does have complaints of some abdominal pain. Continue with the clear liquid diet for a period of time. The Carrillo catheter was removed. Patient is voiding. July 14, 2024 progress note postop day 2 S/P Laparoscopic pyloroplasty due to tight pyloric stenosis. Patient has bipolar disorder currently not on meds as she had stopped several weeks ago to try reglan. She has had c/o distention and abdominal pain therefore I ordered NGT and upper GI x rays. Plain x rays showed free air but she had laparoscopy 2 days ago and GI series did not show any leakage and there is expected edema in the gastroduodenal region due to pyloroplasty. Duodenal sweep is not seen well due to the same reason. I have discussed her operative findings GI series findings and postop course with the patient. Currently she is comfortable with NGT. I plan to give her stomach rest with short term peripheral TPN and start reglan again as the gastric outlet anatomic obstruction is releaved with pyloroplasty. Patient wants a second opinion from Dr. Quinones. I will request Dr. Quinones for second opinion. July 15, 2024 progress note postop day #3 The patient was seen by Dr. Quinones and nuclear medicine gastric emptying test was ordered. The test was not done today because of nuclear medicine radioisotope was not available. Reportedly it will be done tomorrow. Today the patient is on NG tube suction small amount of suction is tried in suction canister. She was also started on peripheral parenteral nutrition. She has been taken off Dilaudid and now she has a less pain on Toradol and IV acetaminophen. She only has occasional pain. She is still getting nausea on trying to eat something or drink something. The nurse said that when she told her about drinking some water even before that she started experiencing nausea. This may be part of withdrawal of the narcotics that she has been getting for a period of past to 3 months. She had a bowel movement today and she has been walking in the room. All this was discussed with the patient and we will wait for the gastric emptying study in the nuclear medicine lab. There is a small amount of improvement will follow how she does over a period of next 2 to 3 days. Patient need to get out of the bed and ambulate in the hallways. July 16, 2024 progress note postop day 4 This patient is not having much of a problem with nausea at the age of the tube was clamped several hours ago she is tolerating that well and she is still n.p.o. for the nuclear medicine test and she is walking around in the hallways without much of difficulty. She is not getting any pain medication. We will wait till the nuclear medicine gastric emptying test is done. Afternoon rounds: Patient went down for nuclear medicine test. Clear medicine department took the NG tube out and then after that gave her some eggs with the isotope and the patient did not like the smell and threw it up so they could not finish the gastric emptying test. At this time she is walking around in the hallway she has been feeling a little bit better and she is able to take liquid diet. She says her throat is swollen because of the NG tube and that is why she is not able to eat solid food at this time. She is currently on PPN gaining her strength back. July 17, 2024 progress note postop day #5 patient is able to take clear liquid diet is a prescribed but she is not taking much. She is not on any IV narcotic pain medication and the Toradol IV was discontinued. She will be on oral acetaminophen. She is not willing to get out of the bed and ambulate at this time. We will restart her Reglan as she says that she is feeling full after taking small amount of liquids. There are no other new complaints. She is passing flatus. July 18, 2024 progress note postop day #6. Patient is able to take a more clear liquid diet and is walking in the hallways making good rounds and she is not needing any IV pain medications and that she is off Toradol only pain medication she is getting is Tylenol she also had a small bowel movement and she is on PPN that was discontinued. Patient wants to go home because she says that she can do everything she is doing here at home without any trouble and she feels better about that. She was explained that nausea and pain to the use of narcotics over a period of time that she has been having a withdrawal reaction. And that she is not to take any narcotic pain medications. She feels that her pain she had bloating she had before surgery has gone down significantly after the pyloroplasty and she is happy about that. She feels that she can manage herself at home. Patient is cautioned that she needs to be careful stay on liquid diet for another week or 2 and slowly advance diet to regular diet. Exam Vital Signs Temp Pulse Resp BP Pulse Ox O2 Del Method O2 Flow Rate 98.8 F 98 16 98/55 L 98 Room Air 4 07/18/24 15:26 07/18/24 15:26 07/18/24 15:26 07/18/24 15:26 07/18/24 15:07/18/24 12:00 07/12/24 16:50 Narrative Exam Patient is ambulating well in the hallways and appears stronger. Cardiopulmonary examination is normal abdomen is soft and nontender extremities are unremarkable. Incisions are healing normally. Results Results: Laboratory Laboratory results: results reviewed Assessment & Plan Diagnosis (1) H/O pyloroplasty: Status: Acute (2) Bipolar disorder: Status: Acute (3) History of Scarlett fundoplication: Status: Acute (4) Nausea & vomiting: Status: Acute Assessment Additional comments: Patient is markedly improved regarding the postprandial bloating and she is able to keep the liquids down without nausea or vomiting at this time and she is cautioned that she is not to combine Reglan the SSRI medications for bipolar disorder. Plan Discharge patient home follow-up in the office in 2 weeks. Continue with liquid diet. Procedures Procedure Date 07/12/24 Procedures Laparoscopic pyloroplasty on 07/12/2024 (2) Bipolar disorder Qualifiers: Active/Remission status: in partial remission Most recent bipolar episode type: mixed Qualified Code(s): F31.77 - Bipolar disorder, in partial remission, most recent episode mixed (4) Nausea & vomiting Qualifiers: Vomiting type: unspecified Qualified Code(s): R11.2 - Nausea with vomiting, unspecified
--- NOTE | 2024-07-18 17:45 | ESDS_ITS ---
Planned Discharge Date 07/18/24 DS: Providers Provider Date of admission: 07/12/24 18:31 Primary care physician: MARIE Conte Admitting Provider: Sathish Dougherty MD Attending Provider on Admission: Sathish Dougherty MD Consults: 07/14/24 18:48 Consult to Gastroenterology Routine Comment: Consulting Provider: Gerson Quinones 07/14/24 19:13 Referral Nutritional Services Routine Comment: start PPN Attending Provider on DC: Sathish Dougherty MD Discharging Provider: Sathish Dougherty MD Diagnosis Discharge Diagnosis (1) H/O pyloroplasty: Status: Acute (2) Bipolar disorder: Status: Acute (3) History of Scarlett fundoplication: Status: Acute (4) Pyloric stenosis: Status: Acute (5) Nausea & vomiting: Status: Acute Problem List Completed Was Problem List Reviewed/Reconciled?: Yes Hospital Course This is a 18-year-old female was admitted for upper GI endoscopy and dilatation and evaluation due to complaints of nausea and vomiting and postprandial bloating she was n.p.o. for 72 hours before the admission from the emergency room and she underwent upper GI endoscopy and dilatation of GE junction was carried out. The endoscopy showed that she had a significant amount of retained food particles in the stomach and gastric emptying was noted to be delayed due to tight pyloric stenosis. Therefore she was admitted to the hospital and on 07/12/2024 she underwent laparoscopic pyloroplasty. Postoperatively she needed IV narcotics for complaints of pain she also got nausea because of that and she was treated with IV Zofran patient stated that Zofran does not work for her so Phenergan was started. Subsequently she continued to have complaints of pain Toradol and IV acetaminophen was started. The abdominal incisions remained as expected and healing without any difficulty she on postop day 1 she continued to have some nausea she wanted to consult with Dr. Quinones thinking that her nausea was not getting cleared out rapidly. I ordered gastrograffin GI series and that showed edema in the pyloric region as expected after pyloroplasty and no leak from the pyloroplasty. Because of ongoing complaints of nausea and inability to take in oral nutrition I started PPN for short term nutritional support. Dr. Quinones saw her and then ordered a gastric emptying study. The nuclear medicine study could not be done because she was not able to eat the eggs that they gave her. The reglan was started. She continued to feel nausea. She was started on clear liquid diet that she tolerated. After the dilaudid was discontinued her nausea slowly improved. She had multiple BM. She started walking in the hallways with the physical therapy and nursing staff. On the day of discharge the patient is feeling stronger and requested that she be discharged home. She will not take her bipolar medications until she she does not need reglan. She knows to follow up with the mental health provider and follow up in my office in 2 weeks. Condition on discharge improved. Basically she refused to admit that she is persistent Exam Vital Signs Temp Pulse Resp BP Pulse Ox O2 Del Method O2 Flow Rate 98.8 F 98 16 98/55 L 98 Room Air 4 07/18/24 15:26 07/18/24 15:26 07/18/24 15:26 07/18/24 15:07/18/24 15:07/18/24 12:00 07/12/24 16:50 Narrative Exam The abdomen is soft and nontender laparoscopic incisions are healing normally cardiopulmonary examination. Patient appears to be in good mood considering the bipolar condition she has. Extremities are unremarkable. Discharge Plan Plan Patient Disposition: HOME (Self Care) Disposition Comment: Follow-up in the office in 1 to 2 weeks Patient condition on transfer: Stable Prescriptions/Referrals Prescriptions/Med Rec: New metoclopramide HCl [Reglan] 10 mg tablet 10 mg PO TID MDD 3 Qty: 90 2RF Continued ibuprofen 800 mg tablet 800 mg PO Q8H PRN (Reason: pain) Qty: 60 0RF metoclopramide HCl [Reglan] 10 mg tablet 10 mg PO Q6H Qty: 120 0RF Discontinued olanzapine 5 mg tablet 10 mg PO HS Patient Comments: take 1 tablet by mouth every evening fluoxetine 20 mg capsule 40 mg PO DAILY Patient Comments: take 1 capsule by mouth every morning hydrocodone-acetaminophen 10-325 mg tablet 1 tab PO Q6H MDD 4 PRN (Reason: pain) Qty: 28 0RF Referrals: Calista Neumann FNP-C [Primary Care Provider] - In 1 week Patient/Caregiver Discharge Instructions Other Discharge Activity Instructions:: Patient is not to take her bipolar medications as long as she is needing regular as there may be an interaction between the 2. This was explained to the patient in detail. Other Discharge Diet Instructions: Full liquid diet for 2 weeks follow-up in the office in 2 weeks Print Language: Turkish Stand Alone Forms: Kathy Award Info., Patient Portal Info Letter Discharge Order Discharge Orders: Discharge (Routine); Ordered 07/18/24 Ordered By: Sathish Dougherty Results Results: Laboratory Laboratory results: results reviewed Procedures Procedure Date 07/12/24 Procedures Laparoscopic pyloroplasty on 07/12/2024 (2) Bipolar disorder Qualifiers: Active/Remission status: in partial remission Most recent bipolar episode type: mixed Qualified Code(s): F31.77 - Bipolar disorder, in partial remission, most recent episode mixed (5) Nausea & vomiting Qualifiers: Vomiting type: unspecified Qualified Code(s): R11.2 - Nausea with vomiting, unspecified
--- NOTE | 2024-07-18 18:28 | PD.IMPROG ---
Documentation for date of: 07/18/24 Subjective Subjective Interval history: Patient is in the process of getting discharged Will be followed by the youth services specialist as an outpatient Exam Vital Signs Temp Pulse Resp BP Pulse Ox O2 Del Method O2 Flow Rate 98.8 F 98 16 98/55 L 98 Room Air 4 07/18/24 15:26 07/18/24 15:26 07/18/24 15:26 07/18/24 15:26 07/18/24 15:26 07/18/24 12:00 07/12/24 16:50 Objective Labs 07/17/24 09:34 07/17/24 09:34 Impressions Impression: Nausea vomiting improved Upon discharge patient to be followed by the youth services specialist Assessment & Plan A&P Narrative # Nausea vomiting complicated by gastric procedure seen on endoscopy with presence of the food in the body of the stomach Esophageal dilatation not helpful Laparoscopic pyloroplasty not helpful Suggestions Nuclear medicine gastric emptying study further evaluation after above Thank you very much for the opportunity to participate in care of this patient Time Spent With Patient Time: Total time spent is greater than 50% in coordination of care (as documented) at patient's floor/unit and/or counseling patient:
== END 2024-07-18 19:48 | disposition home or self-care (01) | DRG 232 ==
LOC: SERX 12:16 → S2EX 13:51 → SERHOLD 14:21 → S3NX 15:38
PROVIDERS: Nurse Practitioner Family; Admitting Provider Specialist; Emergency Provider Emergency Medicine; PCP Nurse Practitioner Family; Referring Provider Specialist; Visit Provider Specialist
PROC: 0D738ZZ Dilation of Lower Esophagus, Via Natural or Artificial Opening Endoscopic (ICD-10-PCS; CPT 43239; principal; 2024-07-11 14:00)
PROC: 0DV44ZZ Restriction of Esophagogastric Junction, Percutaneous Endoscopic Approach (ICD-10-PCS; CPT 49320; principal; 2024-07-12 15:00)
DX: K31.1 Adult hypertrophic pyloric stenosis (principal); K22.2 Esophageal obstruction; F31.77 Bipolar disorder, in partial remission, most recent episode mixed; T18.108A Unspecified foreign body in esophagus causing other injury, initial encounter; W44.9XXA Unspecified foreign body entering into or through a natural orifice, initial encounter; Z87.891 Personal history of nicotine dependence
CPT/HCPCS: 36415; 74240; 78264; 80053; 80307; 81001; 81025; 83690; 83735; 84100; 84132; 85025; 85610; 85730; 87070; 87086; 96374; 99285; A4217; A9541; G0378; J0131; J0694; J1100; J1200; J1885; J2175; J2250; J2270; J2405; J2470; J2550; J2704; J2765; J3010; J3475; J3490; J7030; J7120; Q9963; A9270; J1805

== ENCOUNTER → 2024-10-23 | Outpatient (CLI) | payer MEDICAID, SELFPAY ==
[2024-10-22 12:41] LABS: HCG Qualitative,Urine Negative
--- NOTE | 2024-10-23 14:45 | XR_ITS ---
Examination: MRI abdomen with intravenous contrast. MRI abdomen without intravenous contrast. Date and time of exam: October 23, 2024, 1546 hours INDICATIONS: Abdominal pain nausea vomiting beginning 2 months ago, outside CT chest abdomen pelvis one month ago mass in the stomach Technique: Multiple axial, sagittal and coronal sections of the abdomen obtained. Transverse images, TR 6020, TE 107. T1 weighted transverse images, TR 582, TE 9.5. T2-weighted sagittal images, TR 4000, TE 105. T2-weighted sagittal images, TR 4000, TE 5. Coronal images, TR 4210, TE 107. Axial and coronal images are obtained post 19 cc intravenous injection, gadolinium. Findings: Significant wall thickening involving the gastric antrum No focal liver lesions No gallstones Normal common hepatic or common bile duct No pancreatic mass Spleen is not enlarged. No ascites No renal or ureteral calculi Postcontrast images do not demonstrate abnormal enhancing liver or splenic lesions IMPRESSION: Significant mucosal thickening involving the gastric antrum, recommend endoscopy follow-up
--- NOTE | 2024-10-23 15:45 | XR_ITS ---
Examination: MRI pelvis with intravenous contrast. MRI pelvis without intravenous contrast. Date and time of exam: October 23, 2024, 1546 hours INDICATIONS: Abdominal pelvic pain nausea vomiting beginning 2 months ago, outside CT examination pelvis one month ago cervical mass Technique: Multiple axial, sagittal and coronal sections of the pelvis obtained. Transverse images, TR 6020, TE 107. T1 weighted transverse images, TR 582, TE 9.5. T2-weighted sagittal images, TR 4000, TE 105. T2-weighted sagittal images, TR 4000, TE 5. Coronal images, TR 4210, TE 107. Axial and coronal images are obtained post 19 cc intravenous injection, gadolinium. Findings: Retroverted uterus, 6.8 x 3.4 x 3.2 cm Mild diffuse thickening in the cervix without discrete mass Endometrial stripe 3 mm No adnexal mass No free fluid in the pelvis Urinary bladder intact No pelvic lymphadenopathy IMPRESSION: Mild diffuse thickening in the cervix without discrete mass Recommend transvaginal pelvic sonography follow-up
== END | disposition home or self-care (01) ==
LOC: SMRI 14:13
PROVIDERS: PCP Nurse Practitioner Family; Referring Provider Nurse Practitioner Family; Visit Provider Nurse Practitioner Family
DX: K31.89 Other diseases of stomach and duodenum (principal); N88.8 Other specified noninflammatory disorders of cervix uteri; Z32.00 Encounter for pregnancy test, result unknown
CPT/HCPCS: 72197; 74183; 81025; A9579

== ENCOUNTER → 2024-11-29 | Outpatient (CLI) | payer MEDICAID, SELFPAY ==
--- NOTE | 2024-11-29 09:16 | XR_ITS ---
Examination: PA lateral chest 2 views TECHNIQUE: Upright PA lateral chest 2 views Date and time: November 29, 2024 0923 hours INDICATIONS: Personal history lung nodule FINDINGS: Normal heart size Lungs are clear. The osseous structures are intact IMPRESSION: No pulmonary nodule identified Consider follow-up CT chest without contrast to document stability of the 3 mm pulmonary nodule described on CT chest June 30, 2024
== END | disposition home or self-care (01) ==
LOC: CDIM 09:04
PROVIDERS: PCP Nurse Practitioner Family; Referring Provider Nurse Practitioner Family; Visit Provider Nurse Practitioner Family
DX: R91.1 Solitary pulmonary nodule (principal)
CPT/HCPCS: 71046

== ENCOUNTER → 2025-01-10 | Outpatient (CLI) | payer MEDICAID, SELFPAY ==
--- NOTE | 2025-01-10 08:00 | XR_ITS ---
Examination: Transvaginal ultrasound of the pelvis, complete Technique: Transvaginal sonographic images pelvis performed using carrillo scale imaging Exam date and time: January 10, 2025 0845 hours INDICATIONS: Pelvic pain beginning 3 months ago FINDINGS: Uterus 5.2 cm retroverted, endometrial stripe 0.6 cm No uterine mass or intrauterine gestation Right ovary 3.3 cm arterial flow small follicles. Left ovary 3.1 cm arterial flow small follicles IMPRESSION: Negative examination.
== END | disposition home or self-care (01) ==
PROVIDERS: PCP Nurse Practitioner Family; Referring Provider Nurse Practitioner Family; Visit Provider Nurse Practitioner Family
DX: R10.2 Pelvic and perineal pain (principal)
CPT/HCPCS: 76830

== ENCOUNTER 2025-02-21 00:46 | Emergency (ER) | payer MEDICAID, SELFPAY ==
[2025-02-21] VITALS (8 sets, daily range): BP systolic 82–106; BP diastolic 45–68; PULSE 61–86; RESP 15–29; TEMP 36.7–37.1; O2SAT 87–100; BMI 22.1
--- NOTE | 2025-02-21 00:51 | EKG_ITS ---
[facility] Test Date: 2025-02-21 Pat Name: MIGUEL SAUCEDO Department: Room: - Gender: Female [employer]: : 2005 Requested By: ED Temporary Provider Order Number: [id number] Reading MD: ED Temporary Provider Measurements Intervals [place] Rate: 67 P: 66 AL: 138 QRS: 85 QRSD: 94 T: 56 QT: 430 QTc: 455 Interpretive Statements SINUS RHYTHM WITH SINUS ARRHYTHMIA POSSIBLE RIGHT VENTRICULAR CONDUCTION DELAY [RSR (QR) IN V1/V2] NONSPECIFIC T-WAVE ABNORMALITY Compared to ECG 03/24/2024 10:02:47 T-wave abnormality now present /store/S0/[id number].pdf
--- NOTE | 2025-02-21 01:28 | XR_ITS ---
Examination: CT abdomen and pelvis without contrast. Coronal 3-D reconstructions. Sagittal 2-D reconstructions. Date and time of exam: February 21, 2025, 0918 hours, comparison June 30, 2024 INDICATIONS: Abdominal pain and vomiting beginning 3 days ago CTDI: vol (mGy): 6.35 DLP: (mGycm): 342 Technique: Axial images of the abdomen have been obtained, 3 mm slice thickness Intravenous contrast material has not been administered. Low dose protocols were performed. One or more of the following dose reduction techniques were used; automated exposure control, adjustment of the mA and/or KV according to patient size, use of iterative reconstruction technique. Findings: No focal liver or splenic lesions No gallstones No pancreatic mass Bilateral 1 to 2 mm renal calculi Mild right hydronephrosis although no ureteral calculi Aorta normal size No bowel obstruction Bladder intact No pelvic mass Normal appendix The [place] structures are intact IMPRESSION: Bilateral 1 to 2 mm renal calculi Mild right hydronephrosis although no ureteral calculi, consider right urinary tract infection Normal appendix No bladder mass or bladder calculi
--- NOTE | 2025-02-21 01:29 | EDRME_ITS ---
Rapid Medical Screening Exam [facility] Arrival date/time: 02/21/25 00:46 This is a case of 19-year-old female with history of Scarlett fundoplication for longstanding gastroesophageal reflux pyloric stenosis gastroparesis came in in the emergency room due to abdominal pain chest pain for 3 days worsening of the symptoms now with nausea vomiting this patient decided to sought consult here in the emergency room Chief Complaint: Chest Pain Time Seen by Provider: 02/21/25 01:22 Vital signs: Vital Signs Temperature 98.0 F 02/21/25 01:08 Pulse Rate 63 02/21/25 01:08 Respiratory Rate 20 02/21/25 01:08 Blood Pressure 91/58 L 02/21/25 01:08 Pulse Oximetry (%) 100 02/21/25 01:08 Oxygen Delivery Method Room Air 02/21/25 01:08 Exam: Abdominal pain generalized tenderness no guarding no rebound no rigidity Clinical Impression: Abdominal pain chest pain
[2025-02-21 01:56] LABS: Basophils # (Auto) 0.1 Thou/mm3 (0.0-0.2); Basophils % (Auto) 1 % (0-2.5); Eosinophils # (Auto) 0.0 Thou/mm3 (0.0-0.5); Eosinophils % (Auto) 0 % (0-10); Hematocrit 40.4 % (36.0-46.0); Hemoglobin 13.0 g/dL (12.0-16.0); Immature Granulocytes Auto 0.05 Thou/mm3 (0.00-0.00); Lymphocytes # (Auto) 1.6 Thou/mm3 (1.0-4.8); Lymphocytes % (Auto) 12 % (10-50); Mean Corpuscular HGB Conc 32.2 g/dl (31.0-37.0); Mean Corpuscular Hemoglobin 25.7 pg (25.0-35.0); Mean Corpuscular Volume 80 fL (80-100); Monocytes # (Auto) 0.7 Thou/mm3 (0.0-0.8); Monocytes % (Auto) 5 % (0-12); Neutrophils # (Auto) 10.7 Thou/mm3 (1.8-7.7); Neutrophils % (Auto) 82 % (37-80); Nucleated Red Blood Cell # 0.00 Thou/mm3 (0.00-0.00); Nucleated Red Blood Cell % 0 /100 WBC (0); Platelet Count 359 Thou/mm3 (140-440); RDW Standard Deviation 43.3 fL (36.4-46.3); Red Blood Count 5.05 Miln/mm3 (4.00-5.20); White Blood Count 13.0 Thou/mm3 (3.6-11.0)
[2025-02-21 02:16] LABS: B-Type Natriuretic Peptide < 20 pg/mL (0-100)
[2025-02-21 02:29] LABS: Alanine Aminotransferase 9 U/L (10-49); Albumin, Serum 4.7 gm/dL (3.5-5.0); Albumin/Globulin Ratio 2.2 (1.2-2.2); Alkaline Phosphatase 56 U/L (46-116); Anion Gap 15 (7-16); Aspartate Amino Transferase 16 U/L (0-34); BUN/Creatinine Ratio 7 Ratio (12-20); Bilirubin,Total 0.6 mg/dL (0.3-1.2); Blood Urea Nitrogen < 5 mg/dL (9-23); Calcium 9.5 mg/dL (8.3-10.6); Calcium (Corrected) 9.5 mg/dL (8.5-10.1); Carbon Dioxide 20.0 mMol/L (20.0-31.0); Chloride 108 mMol/L (98-107); Creatinine (Component) 0.7 mg/dL (0.6-1.3); Estimated Creatinine Clearance 100.5 mL/min (>60); Globulin 2.1 gm/dL (2.3-3.5); Glucose 202 mg/dL (74-106); Lipase 30 U/L (12-53); Osmolality,Calculated 288 (275-295); Potassium 3.1 mMol/L (3.4-5.1); Sodium 143 mMol/L (136-145); Total Protein 6.8 gm/dL (5.7-8.2); Troponin I < 0.002 ng/mL (0.0-0.045); eGFR > 60 See Note
[2025-02-21] MEDS: SODIUM CHLORIDE 0.9% 1000 ML 1,000 ML 999 ML IV (04:14)
[2025-02-21] MEDS: ONDANSETRON INJ 2 MG/ML INJ 2 ML 4 MG IVP (04:15)
[2025-02-21] MEDS: HYDROmorphone INJ 2 MG/ML VIAL 1 MG IVP (04:52)
[2025-02-21] MEDS: PROCHLORPERAZINE INJ 5 MG/ML VIAL 2 ML IV (04:54)
--- NOTE | 2025-02-21 05:59 | PC.NURSE ---
ON P[TS ARRIVAL TO , SHE WAS PALE,IN SEVER PAIN AND VOMITING. AFTER DILAUDID AND COMPASINE, PT LOOKS MUCH BETTER. PAIN IS RELIEVED AND VOMITING HAS STOPED. PT FEELS MUCH BETTER. SYSTOLIC BP IS A BIT LOW, HOWEVER PT STATES THAT IS NOT UNCOMMON. USUALE SYSTOLIC BP IS IN THE 90s.
[2025-02-21] MEDS: RINGERS LACTATED 1000 ML 1,000 ML 999 ML IV (06:00)
[2025-02-21 08:13] LABS: Collection Type, Urine Clean Catch
[2025-02-21] MEDS: POTASSIUM CHL 10 mEq IVPB 10 MEQ/100 ML BAG 100 MEQ IV ×2 (08:19→09:32)
[2025-02-21 08:36] LABS: Bilirubin,Urine Negative (Negative); Blood,Urine 1+ (Negative); Color,Urine Lt-Yellow (Lt Yel-Yel); Glucose, Urine Trace (Negative); Hyaline Casts,Urine < 1 /hpf (0-1); Ketones,Urine 2+ (Negative); Leukocyte Esterase,Urine Positive (Negative); Nitrite,Urine Negative (Negative); PH,Urine 7.5 (5.0-7.0); Protein,Urine Negative (Neg - Trace); RBC,Urine 3 /hpf (0-3); Specific Gravity,Urine 1.015 (1.001-1.035); Squamous Epithelial Cell,Urine 7 /hpf (0-5); Urobilinogen,Urine Negative mg/dL (0.0-1.0); WBC,Urine 2 /hpf (0-5)
[2025-02-21 08:46] LABS: Clarity,Urine Hazy (Clear/Hazy)
[2025-02-21 08:51] LABS: HCG Qualitative,Urine Negative
--- NOTE | 2025-02-21 12:06 | EDNOTE_ITS ---
ED General RME/HPI General Chief complaint: Chest Pain Stated complaint: CHEST PAIN, ABD PAIN, VOMITING Time Seen by Provider: 02/21/25 01:22 Arrival date/time: 02/21/25 00:46 Limitations: no limitations RME / HPI RME / HPI narrative: 02/21/25 00:46 This is a case of 19-year-old female with history of Scarlett fundoplication for longstanding gastroesophageal reflux pyloric stenosis gastroparesis came in in the emergency room due to abdominal pain chest pain for 3 days worsening of the symptoms now with nausea vomiting this patient decided to sought consult here in the emergency room DR. KOHLER MAIN ED EVALUATION: 19 year old female with history of scarlett fundoplication for GERD presents to the ED for evaluation of abdominal pain beginning 3 days ago. Described as pressure aching in sensation located most to the epigastric region, rating 8/10 in severity. Accompanied by nausea and vomiting. Patient additionally complains of substernal pressure-like chest pain also beginning 3 days ago. No fevers, chills, cough, shortness of breath, diarrhea, constipation, or urinary symptoms. Exam: Abdominal pain generalized tenderness no guarding no rebound no rigidity Impression: Abdominal pain chest pain Related Data Previous Rx's ?Medication ?Instructions ?Recorded ibuprofen 800 mg tablet 800 mg PO Q8H PRN pain #60 t abs 03/30/24 metoclopramide HCl 10 mg tablet 10 mg PO Q6H #120 tabs 05/14/24 (Reglan) Reglan 10 mg tablet 10 mg PO TID Gastric motilit y 07/18/24 (metoclopramide HCl) disorder #90 tabs promethazine 50 mg rectal 50 mg WV Q12HR PRN nausea an d 02/21/25 suppository vomiting #12 ea Allergies Allergy/AdvReac Type Severity Reaction Status Date / Time milk Allergy Severe Hives Verified 02/21/25 00:47 pineapple Allergy Severe Swelling Verified 02/21/25 00:47 of Lip/Tongue/Throat gluten Allergy Intermediate Abdominal Verified 02/21/25 00:47 Pain Review of Systems Review of Systems Systems Reviewed: All systems reviewed, normal except as documented Past Medical History Past Medical History NEUROLOGIC: Positive Neurological Disorders and Migraine GASTROINTESTINAL: Positive Gastrointestinal Disorders, Irritable Bowel, Hiatal Hernia and Gastroesophageal Reflux Disease MUSCULOSKELETAL: Positive Musculoskeletal Disorders and Fractures ENDOCRINE: Positive Endocrine Disorders and Diabetes Mellitus Type 2 HEMATOLOGIC: Positive Blood Disorders and Anemia PSYCHO/SOCIAL: Positive Bipolar Disorder, Depression and Anxiety Family History FAMILY HISTORY: Negative Family Anesthesia Reaction Surgical History SURGICAL: Positive Abdominal Surgery Social History SMOKING STATUS: Never smoker SECOND HAND EXPOSURE: No ED Exam General Limitations: Present no limitations General appearance: Present alert and in no apparent distress Head Head exam: Present atraumatic, normocephalic and normal inspection Eye Eye exam: Present normal appearance, PERRL and EOMI ENT ENT exam: Present normal exam, normal oropharynx and mucous membranes moist Neck Neck exam: Present normal inspection, full ROM and trachea midline Chest Chest inspection: Present normal inspection and symmetric chest wall rise Respiratory Respiratory exam: Present normal lung sounds bilaterally Cardiovascular Cardiovascular exam: Present regular rate, normal rhythm and normal heart sounds Abdominal Exam Abdominal exam: Present soft and normal bowel sounds Extremities Exam Extremities exam: Present normal inspection and full ROM Back Exam Back exam: Present normal inspection and full ROM Neurological Exam Neurological exam: Present alert, oriented X3 and CN II-XII intact Psychiatric Psychiatric exam: Present normal affect and normal mood Skin Skin exam: Present warm, dry, intact and normal color Course Quality Measures none Orders Category Date Time Status EKG (ED ONLY) *Do not use* NOW Care 02/21/25 00:[address] abdomen pelvis wo con Stat Exams 02/21/25 01:28 Completed EKG (ED Only) Stat Exams 02/21/25 00:51 Draft BNP [B-Type Natriuretic Peptide] Stat Lab 02/21/25 01:36 Completed CBC Stat Lab 02/21/25 01:36 Completed Comprehensive Metabolic Panel Stat Lab 02/21/25 01:36 Completed HCG Qualitative,Urine Stat Lab 02/21/25 07:58 Completed Lipase Stat Lab 02/21/25 01:36 Completed Troponin I Stat Lab 02/21/25 01:36 Completed Urinalysis Stat Lab 02/21/25 07:58 Completed HYDROmorphone INJ [Dilaudid Inj] Med 02/21/25 04:21 Discontinued 1 mg IVP X1 ONE Haloperidol Lactate [Haldol Inj] Med 02/21/25 06:54 Discontinued 5 mg IM X1 ONE Ondansetron Inj [Zofran Inj] Med 02/21/25 01:28 Discontinued 4 mg IVP X1 ONE POTASSIUM CHL 10 mEq IVPB [Kcl Ivpb] Med 02/21/25 06:54 Discontinued 10 meq in 100 ml IV Q1H Pantoprazole Inj [Protonix Inj] Med 02/21/25 01:28 Discontinued 40 mg IVP X1 ONE Prochlorperazine Inj [Compazine Inj] Med 02/21/25 04:21 Discontinued 5 mg IV X1 ONE Ringers Lactated 1000 ml [Lactated Ringers] 1,000 ml Med 02/21/25 05:56 Discontinued IV 999 mls/hr Sodium Chloride 0.9% 1000 ml [Ns] 1,000 ml Med 02/21/25 01:29 Discontinued IV 999 mls/hr Vital Signs Vital signs: Vital Signs Temperature 98.0 F 02/21/25 01:08 Pulse Rate 63 02/21/25 01:08 Respiratory Rate 20 02/21/25 01:08 Blood Pressure 91/58 L 02/21/25 01:08 Pulse Oximetry (%) 100 02/21/25 01:08 Oxygen Delivery Method Room Air 02/21/25 01:08 Pulse ox is 100% on room air which is adequate. Discharge Plan Plan Patient Disposition: HOME (Self Care) Patient condition on transfer: Stable Prescriptions/Referrals Prescriptions/Med Rec: New promethazine 50 mg suppository 50 mg WV Q12HR MDD 2 PRN (Reason: nausea and vomiting) Qty: 12 1RF No Action metoclopramide HCl [Reglan] 10 mg tablet 10 mg PO TID MDD 3 Qty: 90 2RF ibuprofen 800 mg tablet 800 mg PO Q8H PRN (Reason: pain) Qty: 60 0RF metoclopramide HCl [Reglan] 10 mg tablet 10 mg PO Q6H Qty: 120 0RF Referrals: Calista Neumann FNP-C [Primary Care Provider] - In 1 week Problem List Clinical Impression: Nausea & vomiting, Gastroparesis Patient/Caregiver Discharge Instructions Discharge Activity: activity as tolerated Additional Instructions: Follow-up with your regular doctor in 2 to 3 days. Use medication as prescribed for nausea. Print Language: Scottish Stand Alone Forms: Kathy Award Info., Patient Portal Info Letter MDM Narrative MDM hospital course (for use when minimal MDM required): Sofía Schaefer am scribing for and in the presence of Dr. Kohler. Clinical Information Provided by: patient Medical Records reviewed [facility] Meds/Rx considered, not ordered None Labs/Rad/Tests considered, not ordered None Chronic Illness/Social Conditions which may negatively complicate care or outcome(s)-explain: None or not applicable EKG Interpretation EKG #1: EKG Interpretation: EKG @ 01:18 AM. Sinus rhythm with sinus arrhytmia, rate 67, no STEMI. Labs Labs: interpreted by nm Lab(s) Interpretation(s): Potassium 3.1 that was corrected with IV potassium. Troponin negative. Imaging Imaging Interpretation(s): Ordering Physician: Melba Baum Date of Service: 02/21/25 Procedure(s): CT abdomen pelvis wo con Accession Number(s): [id number] cc: Calista Neumann; Edy Lam MD; Melba Baum~ Examination: CT abdomen and pelvis without contrast. Coronal 3-D reconstructions. Sagittal 2-D reconstructions. Date and time of exam: February 21, 2025, 0918 hours, comparison June 30, 2024 INDICATIONS: Abdominal pain and vomiting beginning 3 days ago CTDI: vol (mGy): 6.35 DLP: (mGycm): 342 Technique: Axial images of the abdomen have been obtained, 3 mm slice thickness Intravenous contrast material has not been administered. Low dose protocols were performed. One or more of the following dose reduction techniques were used; automated exposure control, adjustment of the mA and/or KV according to patient size, use of iterative reconstruction technique. Findings: No focal liver or splenic lesions No gallstones No pancreatic mass Bilateral 1 to 2 mm renal calculi Mild right hydronephrosis although no ureteral calculi Aorta normal size No bowel obstruction Bladder intact No pelvic mass Normal appendix The [place] structures are intact IMPRESSION: Bilateral 1 to 2 mm renal calculi Mild right hydronephrosis although no ureteral calculi, consider right urinary tract infection Normal appendix No bladder mass or bladder calculi Dictated By: Edy Lam MD Signed By: <Electronically signed by Edy Lam MD in OV> 02/21/25 0983 Medication Administration(s) Medication Administration History Discontinued Medications Haloperidol Lactate (Haloperidol Lact Inj 5 Mg/Ml Vial) 5 mg IM X1 ONE Stop: 02/21/25 06:55 Last Admin: 02/21/25 10:54 Dose: Not Given Documented By: VL Non-Admin Reason: Patient Refused Hydromorphone HCl (Hydromorphone Inj 2 Mg/Ml Vial) 1 mg IVP X1 ONE Stop: 02/21/25 04:22 Last Admin: 02/21/25 04:52 Dose: 1 mg Documented By: REYMUNDO Sodium Chloride (Ns) 1,000 mls @ 999 mls/hr IV .Q1H1M ONE Stop: 02/21/25 02:29 Last Infusion: 02/21/25 05:15 Dose: Infused Documented By: Admin: 02/21/25 04:14 Dose: 999 mls/hr Documented By: REYMUNDO Lactated Ringer's (Lactated Ringers) 1,000 mls @ 999 mls/hr IV .Q1H1M ONE Stop: 02/21/25 06:56 Last Infusion: 02/21/25 07:05 Dose: Infused Documented By: Admin: 02/21/25 06:00 Dose: 999 mls/hr Documented By: REYMUNOD Potassium Chloride (Kcl Ivpb) 10 meq in 100 mls @ 100 mls/hr IV Q1H SHONDA Stop: 02/21/25 09:53 Last Admin: 02/21/25 10:54 Dose: Not Given Documented By: RADHA Non-Admin Reason: Patient Refused Infusion: 02/21/25 10:54 Dose: Infused Documented By: Admin: 02/21/25 09:32 Dose: 100 mls/hr Documented By: Infusion: 02/21/25 09:19 Dose: Infused Documented By: Admin: 02/21/25 08:19 Dose: 100 mls/hr Documented By: RADHA Ondansetron HCl (Ondansetron Inj 2 Mg/Ml Inj 2 Ml) 4 mg IVP X1 ONE; Protocol Stop: 02/21/25 01:29 Last Admin: 02/21/25 04:15 Dose: 4 mg Documented By: REYMUNDO Pantoprazole Sodium (Pantoprazole Inj 40 Mg Vial) 40 mg IVP X1 ONE Stop: 02/21/25 01:29 Last Admin: 02/21/25 04:14 Dose: 40 mg Documented By: Admin: 02/21/25 04:13 Dose: 40 mg Documented By: REYMUNDO Prochlorperazine Edisylate (Prochlorperazine Inj 5 Mg/Ml Vial 2 Ml) 5 mg IV X1 ONE; Protocol Stop: 02/21/25 04:22 Last Admin: 02/21/25 04:54 Dose: 5 mg Documented By: REYMUNDO See above Diagnosis Diagnoses ruled out and/or further discussions: nausea and vomiting gastroparesis
== END 2025-02-21 10:55 | disposition home or self-care (01) ==
PROVIDERS: Nurse Practitioner Family; Emergency Provider Family Medicine; PCP Nurse Practitioner Family
DX: K31.84 Gastroparesis (principal); N13.2 Hydronephrosis with renal and ureteral calculous obstruction
CPT/HCPCS: 36415; 74176; 80053; 81001; 81025; 83690; 83880; 84484; 85025; 93005; 96361; 96365; 96366; 96375; 99284; J0780; J1171; J2405; J2470; J3480; J7030; J7120

== ENCOUNTER 2025-02-22 14:07 | Inpatient (IN) | payer MEDICAID, SELFPAY ==
[2025-02-22 14:30] VITALS: BMI 23.0
[2025-02-22 14:44] VITALS: BP 95/64; PULSE 63; RESP 18; O2SAT 96
--- NOTE | 2025-02-22 15:26 | XR_ITS ---
EXAMINATION: Nuclear medicine gastric emptying study Date and time: February 23, 2025, 1016 hours INDICATIONS: Vomiting months TECHNIQUE AND FINDINGS: Oral administration 1.9 mCi Tc 99m sulfur colloid Gastric imaging to 120 minutes Abnormal study, retention of gastric activity at 120 minutes 70.2% IMPRESSION: Abnormal nuclear medicine gastric emptying study
[2025-02-22 15:36] LABS: Basophils # (Auto) 0.1 Thou/mm3 (0.0-0.2); Basophils % (Auto) 1 % (0-2.5); Eosinophils # (Auto) 0.0 Thou/mm3 (0.0-0.5); Eosinophils % (Auto) 0 % (0-10); Hematocrit 38.8 % (36.0-46.0); Hemoglobin 12.3 g/dL (12.0-16.0); Immature Granulocytes Auto 0.02 Thou/mm3 (0.00-0.00); Lymphocytes # (Auto) 2.7 Thou/mm3 (1.0-4.8); Lymphocytes % (Auto) 33 % (10-50); Mean Corpuscular HGB Conc 31.7 g/dl (31.0-37.0); Mean Corpuscular Hemoglobin 25.7 pg (25.0-35.0); Mean Corpuscular Volume 81 fL (80-100); Monocytes # (Auto) 0.5 Thou/mm3 (0.0-0.8); Monocytes % (Auto) 6 % (0-12); Neutrophils # (Auto) 4.8 Thou/mm3 (1.8-7.7); Neutrophils % (Auto) 59 % (37-80); Nucleated Red Blood Cell # 0.00 Thou/mm3 (0.00-0.00); Nucleated Red Blood Cell % 0 /100 WBC (0); Platelet Count 320 Thou/mm3 (140-440); RDW Standard Deviation 45.4 fL (36.4-46.3); Red Blood Count 4.79 Miln/mm3 (4.00-5.20); White Blood Count 8.1 Thou/mm3 (3.6-11.0)
[2025-02-22 15:49] LABS: INR 1.0 (0.9-1.3); Partial Thromboplastin Time 26.1 Seconds (22.0-36.0); Prothrombin Time 11.1 Seconds (9.0-12.2)
[2025-02-22 15:54] VITALS: BP 98/62; PULSE 58; RESP 18; TEMP 36.4; O2SAT 96
[2025-02-22 16:07] LABS: Alanine Aminotransferase 9 U/L (10-49); Albumin, Serum 4.3 gm/dL (3.5-5.0); Albumin/Globulin Ratio 2.3 (1.2-2.2); Alkaline Phosphatase 49 U/L (46-116); Anion Gap 10 (7-16); Aspartate Amino Transferase 14 U/L (0-34); BUN/Creatinine Ratio 8 Ratio (12-20); Bilirubin,Total 0.5 mg/dL (0.3-1.2); Blood Urea Nitrogen < 5 mg/dL (9-23); Calcium 8.9 mg/dL (8.3-10.6); Calcium (Corrected) 8.9 mg/dL (8.5-10.1); Carbon Dioxide 26.1 mMol/L (20.0-31.0); Chloride 108 mMol/L (98-107); Creatinine (Component) 0.6 mg/dL (0.6-1.3); Estimated Creatinine Clearance 117.3 mL/min (>60); Globulin 1.9 gm/dL (2.3-3.5); Glucose 94 mg/dL (74-106); Osmolality,Calculated 284 (275-295); Potassium 3.5 mMol/L (3.4-5.1); Sodium 144 mMol/L (136-145); Total Protein 6.2 gm/dL (5.7-8.2); eGFR > 60 See Note
--- NOTE | 2025-02-22 17:13 | PD.SURHP ---
HPI Date of Admission 02/22/25 14:07 Chief Complaint Chief Complaint: Persistent vomiting and gastric emptying problems HPI This is a 19-year-old female who has had significant problems with intestinal dysmotility according to the patient she had that ever since she was a child. She has recently been noticed to have gastroparesis and she is not able to keep any food down and she has been losing weight and at a point that she continues to have vomiting and requires further evaluation and management. She was evaluated several times. She has lost over 20% of her weight in less than 1 year. There is no anatomical obstruction to the GE junction as well as the pylorus however she is noted to have a stomach full during endoscopy when she has been n.p.o. for over 30 hours. She had multiple episodes of inability to eat due to full stomach. Due to this she does not eat for several days she has been losing weight she has gone to the emergency room several times and now she is admitted for further evaluation and management. She was in ER as recently as 2 days ago and required 3 liters of IV fluid for dehydration and potassium replacement. Outpatient gastric emptying studies could not be done because she cannot keep any food down and therefore she is now being admitted for NG tube feeding evaluation while she is in the hospital for gastric emptying and she may be considered for gastrostomy tube feeding and this will be evaluated during this admission. She has a history fundoplication and she also has a history of pyloroplasty to improve the gastric emptying however she still is not able to empty stomach. it was suggested to her by her psyche worker and PCP that she needs to have jejunostomy or gastrostomy for long-term management and this is being evaluated at this time. There is a question if she has anorexia type of disorder. She also has a history of bipolar disorder she is on multiple medications for that for a long time. Upon admission we will consult the dietitian for evaluation. She is at risk of refeeding syndrome and will pay attention to the phosphate after tube feedings are started. Estimated length of stay will depend on the progress through the admission. Review of Systems Constitutional Constitutional: Denies headache(s) ENT Ears, Nose, Mouth, and Throat: Denies headache(s) Neurologic Neurologic: Reports system reviewed and no additional complaints, except as documented, Reports as per HPI and Denies headache(s) Past Medical History Past Medical History NEUROLOGIC: Positive Neurological Disorders and Migraine GASTROINTESTINAL: Positive Gastrointestinal Disorders, Irritable Bowel, Hiatal Hernia and Gastroesophageal Reflux Disease MUSCULOSKELETAL: Positive Musculoskeletal Disorders and Fractures ENDOCRINE: Positive Endocrine Disorders and Diabetes Mellitus Type 2 HEMATOLOGIC: Positive Blood Disorders and Anemia PSYCHO/SOCIAL: Positive Bipolar Disorder, Depression and Anxiety Family History FAMILY HISTORY: Negative Family Anesthesia Reaction Surgical History SURGICAL: Positive Abdominal Surgery Social History SMOKING STATUS: Never smoker SECOND HAND EXPOSURE: No Meds Home Medications and Allergies Home Medications ?Medication ?Instructions ?Recorded ?Confirmed ?Type erythromycin 500 mg tablet 500 mg PO Q8H 02/22/25 02/22/25 History fluoxetine 40 mg capsule 40 mg PO QAM 02/22/25 02/22/25 History olanzapine 10 mg disintegrating 10 mg PO HS 02/22/25 02/22/25 History tablet Allergies Allergy/AdvReac Type Severity Reaction Status Date / Time milk Allergy Severe Hives Verified 02/21/25 00:47 pineapple Allergy Severe Swelling Verified 02/21/25 00:47 of Lip/Tongue/Throat gluten Allergy Intermediate Abdominal Verified 02/21/25 00:47 Pain Exam Vital Signs Temp Pulse Resp BP Pulse Ox O2 Del Method 97.6 F 58 L 18 98/62 96 Room Air 02/22/25 15:54 02/22/25 15:54 02/22/25 15:54 02/22/25 15:54 02/22/25 15:54 02/22/25 15:54 Constitutional Constitutional: no acute distress Routine HEENT Exam Head: Present normocephalic Eye: Present EOMI and PERRL ENT: Present mucous membranes moist Routine Neck Exam Neck: Present supple and trachea midline Routine Chest/Breast/Axilla Exam Chest wall: Absent tenderness or mass Routine Respiratory Exam Respiratory: Present chest non-tender, lungs clear, normal breath sounds and no resp distress; Absent respiratory distress Routine Cardiovascular Exam Cardiovascular: Present RRR Routine Abdominal Exam Abdominal: Present soft and normoactive bowel sounds Comments: There are healing laparoscopic fundoplication incisions abdomen is soft and nontender bowel tones are normal. Routine Extremities Exam Extremities: Present full ROM Routine Skin Exam Skin: Present intact, dry and warm Routine Neurological Exam Neurological: Present alert, oriented X3 and CN II-XII intact Routine Psychiatric Exam Psychiatric: Present normal affect and normal thought process Assessment & Plan Problem List (1) Gastroparesis: Status: Acute (2) H/O pyloroplasty: Status: Acute (3) Bipolar disorder: Qualifiers: Active/Remission status: in partial remission Most recent bipolar episode type: mixed Qualified Code(s): F31.77 - Bipolar disorder, in partial remission, most recent episode mixed Status: Acute (4) History of Scarlett fundoplication: Status: Acute (5) Dysphagia: Status: Acute (6) Unintentional weight loss of 10% body weight within 6 months: Status: Acute Plan Admit to the hospital for nasogastric tube nutrition, gastroparesis evaluation with nuclear medicine gastric emptying study, nutrition consult for tube feeding and further management according to the response to the treatment. Possible gastrostomy and or jejunostomy. Quality Measures Quality Measures none
[2025-02-22 17:59] LABS: Lithium < 0.10 mEq/L (1.00-1.20)
--- NOTE | 2025-02-22 19:53 | PC.NURSE ---
attempted ngt insertion by Jun herron but failed- right nare pt not tolerated, left nare unable to advance ngt, small amount of bleeding after ngt removed.
[2025-02-22 20:00] VITALS: BP 102/69; PULSE 56; RESP 16; TEMP 36.9; O2SAT 99
[2025-02-22] MEDS: ACETAMINOPHEN IVPB 1,000 MG/100 ML VIAL 250 MG IV (21:42)
[2025-02-22 21:55] LABS: Amphetamine/Methamp Scrn,U Negative (Negative); Barbiturate Screen,Urine Negative (Negative); Benzodiazepines Screen,Urine Negative (Negative); Benzoylecgonine Screen, Ur Negative (Negative); Fentanyl Screen,Urine Negative (Negative); Opiate Screen,Urine Negative (Negative); THC Screen,Urine Positive (Negative)
[2025-02-23] VITALS: BP 102/69; PULSE 62; RESP 16; TEMP 37.2; O2SAT 99
--- NOTE | 2025-02-23 03:26 | PC.NURSE ---
[employer] computer downtime from 02:00 to 02:51 am.
[2025-02-23 04:00] VITALS: BP 90/61; PULSE 66; RESP 19; TEMP 36.9; O2SAT 99
[2025-02-23] MEDS: ACETAMINOPHEN IVPB 1,000 MG/100 ML VIAL 250 MG IV ×4 (04:51→23:16)
--- NOTE | 2025-02-23 06:20 | XR_ITS ---
EXAMINATION: AP chest single view TECHNIQUE: AP portable semiupright chest single view Date and time: February 23, 2025, 0723 hours, comparison November 29, 2024 INDICATIONS: Post orogastric tube placement FINDINGS: Orogastric tube in the stomach satisfactory position Normal heart size Lungs are clear IMPRESSION: Orogastric tube satisfactory position
[2025-02-23 08:00] VITALS: BP 107/66; PULSE 66; RESP 15; TEMP 36.7; O2SAT 99
[2025-02-23] MEDS: ONDANSETRON INJ 2 MG/ML INJ 2 ML 4 MG IVP ×2 (10:23→16:30)
--- NOTE | 2025-02-23 10:46 | PC.NURSE ---
Spoke with Director Of Health Education Pratima, Do not start tube feeding due to patient being nauseous and vomiting.
[2025-02-23 10:47] VITALS: BMI 23.1
[2025-02-23 11:44] VITALS: BP 99/65; PULSE 75; RESP 17; TEMP 36.6; O2SAT 98
[2025-02-23] MEDS: PROCHLORPERAZINE INJ 5 MG/ML VIAL 2 ML 10 MG IV ×2 (13:15→21:46)
--- NOTE | 2025-02-23 14:17 | PD.SURPROG ---
Documentation for date of: 02/23/25 Subjective Subjective Brief History: This is a 19-year-old female who has had significant problems with intestinal dysmotility according to the patient she had that ever since she was a child. She has recently been noticed to have gastroparesis and she is not able to keep any food down and she has been losing weight and at a point that she continues to have vomiting and requires further evaluation and management. She was evaluated several times. She has lost over 20% of her weight in less than 1 year. There is no anatomical obstruction to the GE junction as well as the pylorus however she is noted to have a stomach full during endoscopy when she has been n.p.o. for over 30 hours. She had multiple episodes of inability to eat due to full stomach. Due to this she does not eat for several days she has been losing weight she has gone to the emergency room several times and now she is admitted for further evaluation and management. She was in ER as recently as 2 days ago and required 3 liters of IV fluid for dehydration and potassium replacement. Outpatient gastric emptying studies could not be done because she cannot keep any food down and therefore she is now being admitted for NG tube feeding evaluation while she is in the hospital for gastric emptying and she may be considered for gastrostomy tube feeding and this will be evaluated during this admission. She has a history fundoplication and she also has a history of pyloroplasty to improve the gastric emptying however she still is not able to empty stomach. it was suggested to her by her psyche worker and PCP that she needs to have jejunostomy or gastrostomy for long-term management and this is being evaluated at this time. There is a question if she has anorexia type of disorder. She also has a history of bipolar disorder she is on multiple medications for that for a long time. Upon admission we will consult the dietitian for evaluation. She is at risk of refeeding syndrome and will pay attention to the phosphate after tube feedings are started. Estimated length of stay will depend on the progress through the admission. February 23, 2025: This patient had gastric emptying study and it shows that in 2 hours only 30% of the isotope was evacuated from the stomach and is markedly delayed gastric emptying. Consultation was obtained from the dietary nutritional services and suggest that she has over 20% of the body weight loss in less than 6 months and that is severe and she would need to have tube feedings started at Glucerna 10 mL/h and at 12-hour. If she tolerates that then that may be increased. She is currently on as needed Zofran and Phenergan basis for nausea. The urine toxicology showed that she was positive for cannabis marijuana. This requires further investigation with the social and political studies professor to see how pervasive her chronic marijuana use she has because that can also produce gastroparesis. We need to detox her from marijuana in order to assess the gastric and intestinal motility. This may be a good time to evaluate that for her. She does complain of abdominal pain when the stomach is full. This may be also the sign of cannabis related symptom complex. All this need to be differentiated over next few days. She has no other complaints. Her Urine lithium was less than 0.1ng/ml below normal. She needs to have her bipolar medications restarted. She may not be absorbing the medications due to vomiting. Her condition was discussed extensively with the dietitian and a plan was formulated. If withdrawal of marijuana and tube feeding does not solve her nutrition through GI tract then she may need TPN for a period of time. There was a question of use of gastric pacemaker and that is only approved by FDA for limited indications and only in special centers with institutional review board for humanitarian use only for severe refractory gastroparesis. Exam Vital Signs Temp Pulse Resp BP Pulse Ox O2 Del Method 97.9 F 75 17 99/65 98 Room Air 02/23/25 11:44 02/23/25 11:44 02/23/25 11:44 02/23/25 11:44 02/23/25 11:44 02/23/25 11:44 Narrative Exam Cardio pulmonary examination is unchanged. Abdomen is soft and non tender and non distended. Extermities are wnl. Assessment & Plan Diagnosis (1) Unintentional weight loss of 10% body weight within 6 months: Status: Acute (2) Gastroparesis: Status: Acute (3) H/O pyloroplasty: Status: Acute (4) Bipolar disorder: Status: Acute (5) History of Scarlett fundoplication: Status: Acute (6) Dysphagia: Status: Acute (7) Abdominal pain: Status: Acute (8) Marijuana abuse, continuous: Status: Acute Plan Continue tube feedings and observe. Nutritional support assessment. Watch out for refeeding syndrome. Will check K+ Mg++ and PO4--- and replace as needed. Add Zinc and Thiamine. Will need to check B12, Folic acid, Vit D levels. Globulin was low but Albumen level was normal. (4) Bipolar disorder Qualifiers: Active/Remission status: in partial remission Most recent bipolar episode type: mixed Qualified Code(s): F31.77 - Bipolar disorder, in partial remission, most recent episode mixed
[2025-02-23] MEDS: THIAMINE INJ 100 MG/ML VIAL 2 ML IVP (14:29)
[2025-02-23 16:00] VITALS: BP 106/70; PULSE 75; RESP 15; TEMP 36.1; O2SAT 99
[2025-02-23 16:02] LABS: Magnesium 2.0 mg/dL (1.6-2.6); Phosphorous 4.8 mg/dL (2.4-5.1); Potassium 4.2 mMol/L (3.4-5.1)
[2025-02-23 16:06] LABS: Vitamin B12 441 pg/mL (211-911)
--- NOTE | 2025-02-23 16:29 | PC.NURSE ---
Dr. Dougherty in to see patient. Patient removed NGT herself. Will medicate with zofran for n/v. Will continue to monitor.
[2025-02-23 20:00] VITALS: BP 103/65; PULSE 72; RESP 17; TEMP 36.1; O2SAT 98
[2025-02-24] VITALS: BP 94/64; PULSE 62; RESP 15; TEMP 36.4; O2SAT 95
--- NOTE | 2025-02-24 00:09 | PC.NURSE ---
Patient's BP at 12:00 was 82/67 Right arm, 85/57 left arm. Patient denies any chest pain, dizziness, weakness, palpation, SOB. She only complains of sleepiness. Rechecked again BP after few minutes, its 87/62. Dr. Dougherty was called around 00:07 am and left a voice message.
[2025-02-24 04:00] VITALS: BP 94/57; PULSE 82; RESP 16; TEMP 37.2; O2SAT 99
[2025-02-24 07:56] VITALS: BP 105/72; PULSE 72; RESP 15; TEMP 36.2; O2SAT 97
[2025-02-24] MEDS: THIAMINE INJ 100 MG/ML VIAL 2 ML IVP (09:57)
[2025-02-24] MEDS: ZINC SULFATE 220 MG CAPSULE PO (09:57)
--- NOTE | 2025-02-24 10:40 | PC.SS ---
Adamaris Bai is a 19-year-old female admitted to OR for Malnutrition, Dehydration, and Weight Loss. SS conducted bedside contact with the patient to complete initial assessment and to discuss discharge planning. Role and reason explained. Patient confirmed demographic information. Patient identifies mother Anushka Stafford [phone] as her surrogate decision maker. Pt states she is able to complete all ADL?s independently. No need for any source of DME. Pts PCP is Dr. Alondra Neumann (last visit last week). [facility]. Discharge options discussed and the pt wishes to return home.? Family will provide transportation upon DC. No further intervention required at this time, addiction social worker would be available to address any further concerns. DC Plan: Home Contact: MomAnushka Address: Confirmed on face sheet PCP: Nel
--- NOTE | 2025-02-24 11:38 | ESPR_ITS ---
Documentation for date of: 02/24/25 Subjective Subjective Brief History: This is a 19-year-old female who has had significant problems with intestinal dysmotility according to the patient she had that ever since she was a child. She has recently been noticed to have gastroparesis and she is not able to keep any food down and she has been losing weight and at a point that she continues to have vomiting and requires further evaluation and management. She was evaluated several times. She has lost over 20% of her weight in less than 1 year. There is no anatomical obstruction to the GE junction as well as the pylorus however she is noted to have a stomach full during endoscopy when she has been n.p.o. for over 30 hours. She had multiple episodes of inability to eat due to full stomach. Due to this she does not eat for several days she has been losing weight she has gone to the emergency room several times and now she is admitted for further evaluation and management. She was in ER as recently as 2 days ago and required 3 liters of IV fluid for dehydration and potassium replacement. Outpatient gastric emptying studies could not be done because she cannot keep any food down and therefore she is now being admitted for NG tube feeding evaluation while she is in the hospital for gastric emptying and she may be considered for gastrostomy tube feeding and this will be evaluated during this admission. She has a history fundoplication and she also has a history of pyloroplasty to improve the gastric emptying however she still is not able to empty stomach. it was suggested to her by her psyche worker and PCP that she needs to have jejunostomy or gastrostomy for long-term management and this is being evaluated at this time. There is a question if she has anorexia type of disorder. She also has a history of bipolar disorder she is on multiple medications for that for a long time. Upon admission we will consult the dietitian for evaluation. She is at risk of refeeding syndrome and will pay attention to the phosphate after tube feedings are started. Estimated length of stay will depend on the progress through the admission. February 23, 2025: This patient had gastric emptying study and it shows that in 2 hours only 30% of the isotope was evacuated from the stomach and is markedly delayed gastric emptying. Consultation was obtained from the dietary nutritional services and suggest that she has over 20% of the body weight loss in less than 6 months and that is severe and she would need to have tube feedings started at Glucerna 10 mL/h and at 12-hour. If she tolerates that then that may be increased. She is currently on as needed Zofran and Phenergan basis for nausea. The urine toxicology showed that she was positive for cannabis marijuana. This requires further investigation with the professor of social work to see how pervasive her chronic marijuana use she has because that can also produce gastroparesis. We need to detox her from marijuana in order to assess the gastric and intestinal motility. This may be a good time to evaluate that for her. She does complain of abdominal pain when the stomach is full. This may be also the sign of cannabis related symptom complex. All this need to be differentiated over next few days. She has no other complaints. Her Urine lithium was less than 0.1ng/ml below normal. She needs to have her bipolar medications restarted. She may not be absorbing the medications due to vomiting. Her condition was discussed extensively with the dietitian and a plan was formulated. If withdrawal of marijuana and tube feeding does not solve her nutrition through GI tract then she may need TPN for a period of time. There was a question of use of gastric pacemaker and that is only approved by FDA for limited indications and only in special centers with institutional review board for humanitarian use only for severe refractory gastroparesis. February 24, 2025: I had a long discussion with the patient regarding her marijuana use. Apparently a year and a half ago when she had fundoplication surgery she had some nausea so she increased her use of recreational marijuana to 3-4 times a day and more she took because she had more nausea so she took more over a period of time that has become a continuous pattern of use of marijuana and is the use of marijuana grow she started having gastroparesis symptoms that produced significant course of difficulty for her. At this time she is instructed not to take any marijuana her gastroparesis is expected to improve. Her SSRI medications also produces reduced gastric motility as she is requested not to take that she says that she would not take any bipolar medications for another 2 months and she has not been taking that for past 2 months either. She will require gastric emptying study after about 2 months. Of time allow the stomach and intestinal smooth muscle to recover from the long- term use of marijuana. She appears to understand all that and is going to promised to comply with that requirement in order to get better. She will be discharged home. To be followed in Dr. Dougherty's office within 2 weeks. Exam Vital Signs Temp Pulse Resp BP Pulse Ox O2 Del Method 98.9 F 82 16 94/57 L 99 Room Air 02/24/25 04:00 02/24/25 04:00 02/24/25 04:00 02/24/25 04:00 02/24/25 04:00 02/24/25 04:00 Narrative Exam Cardiopulmonary examination is normal abdomen is soft and nontender extremities are unremarkable Assessment & Plan Diagnosis (1) Marijuana abuse, continuous: Status: Acute (2) Unintentional weight loss of 10% body weight within 6 months: Status: Acute (3) Gastroparesis: Status: Acute (4) H/O pyloroplasty: Status: Acute (5) Bipolar disorder: Status: Acute (6) History of Scarlett fundoplication: Status: Acute (7) Nausea & vomiting: Status: Acute (8) Abdominal pain: Status: Acute Plan Discharge patient to home follow-up in the office in 2 weeks. Patient is not to touch marijuana because that appears to be the problem that she has raising delayed gastric emptying. (5) Bipolar disorder Qualifiers: Active/Remission status: in partial remission Most recent bipolar episode type: mixed Qualified Code(s): F31.77 - Bipolar disorder, in partial remission, most recent episode mixed (7) Nausea & vomiting Qualifiers: Vomiting type: unspecified Qualified Code(s): R11.2 - Nausea with vomiting, unspecified
--- NOTE | 2025-02-24 11:42 | PD.SURDS ---
Planned Discharge Date 02/24/25 DS: Providers Provider Date of admission: 02/22/25 14:07 Primary care physician: MARIE Conte Admitting Provider: Sathish Dougherty MD Attending Provider on Admission: Sathish Dougherty MD Consults: 02/22/25 15:23 Referral Registered Dietitian Routine Comment: Tube feeding, (to be at 1/2 volume) 02/22/25 15:56 Referral Registered Dietitian Routine Comment: [facility] Referral - Knowledge Deficit Routine Comment: Positive screening for knowledge deficit needs. 02/22/25 15:57 Referral Speech Therapy Routine Comment: Attending Provider on DC: Sathish Dougherty MD Discharging Provider: Sathish Dougherty MD Diagnosis Discharge Diagnosis (1) Marijuana abuse, continuous: Status: Acute (2) Unintentional weight loss of 10% body weight within 6 months: Status: Acute (3) Gastroparesis: Status: Acute (4) H/O pyloroplasty: Status: Acute (5) Bipolar disorder: Status: Acute (6) History of Scarlett fundoplication: Status: Acute (7) Pyloric stenosis: Status: Acute (8) Dysphagia: Status: Acute (9) Abdominal pain: Status: Acute (10) Nausea & vomiting: Status: Acute (11) S/P laparoscopic fundoplication: Status: Acute Problem List Completed Was Problem List Reviewed/Reconciled?: Yes Hospital Course This patient was admitted because she was having persistent vomiting and she was dehydrated went to the emergency room 2 days before and required about 3 L of fluid she was hypotensive because of dehydration due to continuous vomiting inability to eat and unintentional weight loss over 20% of her body weight she was thought to have gastroparesis and primary care provider requested gastrostomy or jejunostomy for nutritional support. She also has psych worker who requested the same and said that she is ready for all these procedures. She was admitted to the hospital and says she was started on nasogastric tube feeding to see how much she would tolerate she also had nuclear medicine gastric emptying study and showed that she only had 30% emptying of the stomach in about 2 hours he should be 70% emptying of the stomach in 2 hours. Naturally if there is evidence that this she has gastric emptying problem she had urinary the toxicology screen that showed that she had amount of marijuana on board further questioning reveals that she has been on very heavy use of marijuana over a period of last year and a half and that has produced the gastric emptying problem as marijuana produces reduction in the smooth muscle of intestinal tract and reduces the motility. All this was explained in great detail to the patient and then she promises that she will not touch marijuana because that seems to be her main problem. She is also advised to go ahead and get a job and be able to work distracting her from the available marijuana. Her boyfriend also takes marijuana at home and is seem to be the main culprit for her motility disorder. She will be evaluated in the office in 2 weeks and she may undergo random marijuana urine test to observe the compliance of staying away from marijuana. Obviously she does not require any surgical procedure at this time like gastrostomy or jejunostomy that would be a significant overkill. She is being discharged home at this time and rehydration status. Exam Vital Signs Temp Pulse Resp BP Pulse Ox O2 Del Method 97.1 F 72 15 105/72 97 Room Air 02/24/25 07:56 02/24/25 07:56 02/24/25 07:56 02/24/25 07:56 02/24/25 07:56 02/24/25 07:56 Narrative Exam The cardiopulmonary examination is normal abdomen is soft and nontender extremities are unremarkable. Discharge Plan Plan Patient Disposition: HOME (Self Care) Disposition Comment: Follow-up in the office in 2 weeks Prescriptions/Referrals Prescriptions/Med Rec: No Action promethazine 50 mg suppository 50 mg OR Q12HR MDD 2 PRN (Reason: nausea and vomiting) Qty: 12 1RF ibuprofen 800 mg tablet 800 mg PO Q8H PRN (Reason: pain) Qty: 60 0RF erythromycin 500 mg tablet 500 mg PO Q8H Patient Comments: TAKE 1 TABLET ON AN EMPTY STOMACH 2 HOURS BEFORE OR 2 HOURS AFTER A MEAL ORALLY EVERY 8 HOURS olanzapine 10 mg tablet,disintegrating 10 mg PO HS Patient Comments: Take 1 tablet on tongue every night at bedtime for 30 days fluoxetine 40 mg capsule 40 mg PO QAM Patient Comments: Take 1 capsule by mouth for 30 days take 1 capsule by mouth once daily Referrals: Calista Neumann FNP-C [Primary Care Provider] Patient/Caregiver Discharge Instructions Other Discharge Activity Instructions:: Resume preadmission activities not to consume any marijuana. Other Discharge Diet Instructions: Full liquid diet slowly advance to regular. Print Language: Zambian Stand Alone Forms: Kathy Award Info., Patient Portal Info Letter Discharge Order Discharge Orders: Discharge (Routine); Ordered 02/24/25 Ordered By: Sathish Dougherty (5) Bipolar disorder Qualifiers: Active/Remission status: in partial remission Most recent bipolar episode type: mixed Qualified Code(s): F31.77 - Bipolar disorder, in partial remission, most recent episode mixed (10) Nausea & vomiting Qualifiers: Vomiting type: unspecified Qualified Code(s): R11.2 - Nausea with vomiting, unspecified
[2025-02-24 12:00] VITALS: BP 95/63; PULSE 88; RESP 16; TEMP 36.3; O2SAT 98
[2025-02-24] MEDS: ACETAMINOPHEN IVPB 1,000 MG/100 ML VIAL 250 MG IV (12:10)
--- NOTE | 2025-02-24 12:33 | PC.NURSE ---
DR. SOLER MADE AWARE PT HAS POOR APPETITE. DR. SOLER HAS SPOKEN TO [facility] OVER THE PHONE AND GIVEN DISCHARGE INSTURCITONS.
--- NOTE | 2025-02-24 13:38 | PC.SS ---
SS met with pt at bedside to discuss concerns. Dr. Dougherty is adamant that pt ok to DC. Pt has not eaten, pt expressed feeling weak. Pt expressed she doesn't feel Dr. Dougherty is listening to her concerns. Pt wishes for a second opinion. SS explained there isn't anything we can do as this isn't something that requires acute intervention and can be addressed outpt. SS recommended for pt to advocate for herself in all means necessary. Pt confirmed she has a safe DC plan and her sister will be picking her up. RNMaria Ines made aware.
[2025-02-24 14:46] LABS: Magnesium 2.0 mg/dL (1.6-2.6); Phosphorous 3.5 mg/dL (2.4-5.1)
[2025-03-01 06:18] LABS: Vitamin D,1,25 (OH)2,Total 24 pg/mL (18-72); Vitamin D2, 1,25 (OH)2 <8 pg/mL; Vitamin D3, 1,25 (OH)2 24 pg/mL
== END 2025-02-24 14:10 | disposition home or self-care (01) | DRG 254 ==
PROVIDERS: Admitting Provider Specialist; PCP Nurse Practitioner Family; Visit Provider Specialist
DX: K31.84 Gastroparesis (principal); E86.0 Dehydration; F31.77 Bipolar disorder, in partial remission, most recent episode mixed; R13.10 Dysphagia, unspecified; R63.4 Abnormal weight loss; Z68.23 Body mass index [BMI] 23.0-23.9, adult; F12.10 Cannabis abuse, uncomplicated; K31.1 Adult hypertrophic pyloric stenosis
CPT/HCPCS: 36415; 78264; 80053; 80178; 80307; 82607; 82652; 83735; 84100; 84132; 85025; 85610; 85730; 92610; A9541; J0131; J0780; J2405; J3411; J3490; J7121; A9270

== ENCOUNTER 2025-03-29 09:52 | Outpatient (AMB) | payer MEDICAID, SELFPAY ==
--- NOTE | 2025-03-29 10:11 | GYNCLNT_ITS ---
<Statement entered by Evelyn Lord MD - 04/04/25 20:40> see other note from today's visit Vital Signs 03/29/25 10:12 03/29/25 10:15 Weight 54.601 kg Weight Measurement Method Standing Scale BP 100/64 100/64 Blood Pressure Source Automatic Cuff Blood Pressure Location Left Upper Arm Position Sitting Respiration 18 18 Pulse 77 77 Pulse Source Monitor Temp 97.2 F 97.2 F Temp Source Oral Pulse Oximetry (%) 98 98 Oxygen Delivery Method Room Air Allergies/Home Meds Allergies & Medications Allergies milk Allergy (Severe, Verified 03/29/25 10:12) Hives pineapple Allergy (Severe, Verified 03/29/25 10:12) Swelling of Lip/Tongue/Throat gluten Allergy (Intermediate, Verified 03/29/25 10:12) Abdominal Pain Medication Reconciliation ibuprofen 800 mg tablet 800 mg PO Q8H PRN pain #60 tabs 03/30/24 [Rx Confirmed 03/29/25] promethazine 50 mg rectal suppository 50 mg GA Q12HR PRN nausea and vomiting #12 ea 02/21/25 [Rx Confirmed 03/29/25] erythromycin 500 mg tablet 500 mg PO Q8H 02/22/25 [History Confirmed 03/29/25] fluoxetine 40 mg capsule 40 mg PO QAM 02/22/25 [History Confirmed 03/29/25] olanzapine 10 mg disintegrating tablet 10 mg PO HS 02/22/25 [History Confirmed 03/29/25] Intake Visit Data Collection New Patient or Established: Established Patient (seen at [facility] within 3 years) 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 Seen by Clinical Staff ONLY (RN/MA): No Museum Curator Required: No Do You Feel Safe at Home: Yes Authorities Contacted: N/A PCP or OBGYN visit in last 3 months: Yes Date of Last PCP or OBGYN visit: 02/24/25 Hx Now: No Are you currently on any form of Control: Yes Pain Present Currently: No Pain Scale Used: Tyler-Jade/Numerical Pain scale:: 0 Smoking Status Smoking Status: Never smoker Immunizations Flu Vaccine in the Last 12 Months: Yes Flu Vaccine Exclusion Criteria: Already Received Parole Hearing Officer history Parole Hearing Officer History Menstrual regularity: regular Flow: normal Monthly: Yes Age at menarche: 11 Menopausal: No Currently sexually active: Yes 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 1. Little interest or pleasure in doing things: not at all 2. Feeling down, depressed, or hopeless: not at all Total score: 0 PHQ-9 3. Trouble falling or staying asleep, or sleeping too much: Not at all 4. Feeling tired or having little energy: Not at all 5. Poor appetite or overeating: Not at all 6. Feeling bad about yourself - or that you are a failure or have let yourself or your family down: Not at all 7. Trouble concentrating on things, such as reading the newspaper or watching television: Not at all 8. Moving or speaking so slowly that other people could have noticed? - Or the opposite - being so fidgety or restless that you have been moving around a lot more than usual: not at all 9. Thoughts that you would be better off or of hurting yourself in some way: Not at all Total score: 0 If you checked off any problems, how difficult have these problems made it for you to do your work, take care of things at home, or get along with other people?: not difficult at all Source: Developed by Drs. Herbie Shah, Elis Batres, Tahir Coronel and colleagues, with an educational lydia from [employer]. Depression screen completed yes Social History Living Situation History Marital Status: Single Lives With: Family Housing: House Housing Other:: Pt lives with mom and sister Tobacco History Smoking Status: Never smoker Second Hand Smoke Exposure: No Alcohol History Alcohol Intake: Current Alcohol Intake Frequency: holidays/special occasions only Substance Use History Substance Use: Marijuana Domestic Abuse History Do You Feel Safe at Home: Yes Office Procedures OBC Clinic LOC & Office Proc's Nursing/Assessment Patient Status: Established Patient OB Clinic Nursing Assessment: Medication Reconciliation, Update PMH in EMR and Vital Signs OB Clinic Coordination of Care: Consent,records obtained, informed consent, Education Simp Pt/Fam, Lab and Imaging orders, Results/Orders obtained and Staff clarify orders Established Patient Charge Established Patient Point Assignment: 80 Established Patient Point Charge: EP Level 3 (80-115)
[2025-03-29 10:12] VITALS: BP 100/64; PULSE 77; RESP 18; TEMP 36.2; O2SAT 98
--- NOTE | 2025-03-29 10:13 | AMB.GYNCLNOT ---
Vital Signs 03/29/25 10:12 03/29/25 10:15 Weight 54.601 kg Weight Measurement Method Standing Scale BP 100/64 100/64 Blood Pressure Source Automatic Cuff Blood Pressure Location Left Upper Arm Position Sitting Respiration 18 18 Pulse 77 77 Pulse Source Monitor Temp 97.2 F 97.2 F Temp Source Oral Pulse Oximetry (%) 98 98 Oxygen Delivery Method Room Air Allergies/Home Meds Allergies & Medications Allergies milk Allergy (Severe, Verified 03/29/25 10:12) Hives pineapple Allergy (Severe, Verified 03/29/25 10:12) Swelling of Lip/Tongue/Throat gluten Allergy (Intermediate, Verified 03/29/25 10:12) Abdominal Pain Medication Reconciliation ibuprofen 800 mg tablet 800 mg PO Q8H PRN pain #60 tabs 03/30/24 [Rx Confirmed 03/29/25] promethazine 50 mg rectal suppository 50 mg NV Q12HR PRN nausea and vomiting #12 ea 02/21/25 [Rx Confirmed 03/29/25] erythromycin 500 mg tablet 500 mg PO Q8H 02/22/25 [History Confirmed 03/29/25] fluoxetine 40 mg capsule 40 mg PO QAM 02/22/25 [History Confirmed 03/29/25] olanzapine 10 mg disintegrating tablet 10 mg PO HS 02/22/25 [History Confirmed 03/29/25] Intake Visit Data Collection New Patient or Established: Established Patient (seen at [facility] within 3 years) Reason for Visit:: 19 year old referred from [facility] for LGSIL/Other high risk HPV positive on 01/17/2025/ negative for HPV 16 and 18/45 she has received HPV vaccine as a child x 2 She is using nexplanon / This was her first Pap smear Seen by Clinical Staff ONLY (RN/MA): No Registered Nurse Float Pool Required: No Do You Feel Safe at Home: Yes Authorities Contacted: N/A PCP or OBGYN visit in last 3 months: Yes Date of Last PCP or OBGYN visit: 01/17/25 Hx Now: No Are you currently on any form of Control: Yes Pain Present Currently: No Smoking Status Smoking Status: Never smoker Immunizations Flu Vaccine in the Last 12 Months: No Flu Vaccine Exclusion Criteria: No Exclusion Criteria It Recruiter history It Recruiter History Menstrual regularity: regular Flow: normal Monthly: Yes Age at menarche: 11 Menopausal: No Currently sexually active: Yes Additional comments: using Nexplanon / irregular periods / 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: Past Medical History Past Medical History: Yes Hx Neurological Disorders, No Hx Cardiac Disorders, No Hx Cancer, Yes Hx Blood Disorders, Yes Hx Anemia, Yes Hx Gastrointestinal Disorders, No Hx Renal Disease, No Hx Diabetes Mellitus Type 1 and Yes Hx Diabetes Mellitus Type 2 Additional Operations/Hospitalizations (year & reason): Jonathan fundoplication 2023 Pyloplasty 2024 Other Relevant History: h/o marijuana chronic use Questionnaires Social History Living Situation History Housing: House Housing Other:: Pt lives with mom and sister Tobacco History Smoking Status: Never smoker Second Hand Smoke Exposure: No Alcohol History Alcohol Intake: Current Alcohol Intake Frequency: holidays/special occasions only Substance Use History Substance Use: Marijuana Domestic Abuse History Do You Feel Safe at Home: Yes History of Present Illness HPI Narrative here for abnormal pap on 01/17/2025 Review of Systems Review of Systems Systems Reviewed: All systems reviewed, normal except as documented Exam Narrative Physical exam: Alert and oriented x 3 no shortness of breath Pain no chest pain no palpitations Chest clear bilaterally no additional sounds, no wheezing no rales CVS regular rate and rhythm No CVAT Abdomen nontender, normal bowel sounds No guarding no rigidity No hernias Results Objective Laboratory: Pap LGSIL/Other high Risk HPV positive on 01/17/2025 HPV Vaccinated/ age 19/ recommend repeat Pap/HPV if desires in 6 to 12 months Patient wants to come back in June 2025 for a repeat Pap/ adv to use condoms / partner is 27 and can be vaccinated for HPv as well Office Procedures OBC Clinic LOC & Office Proc's Nursing/Assessment Patient Status: Established Patient OB Clinic Nursing Assessment: Medication Reconciliation, Update PMH in EMR and Vital Signs OB Clinic Coordination of Care: Consent,records obtained, informed consent, Education Simp Pt/Fam, Lab and Imaging orders, Results/Orders obtained and Staff clarify orders Established Patient Charge Established Patient Point Assignment: 80 Established Patient Point Charge: EP Level 3 (80-115) Assessment & Plan Diagnosis / Problem List (1) Marijuana abuse, continuous: Status: Acute (2) Bipolar disorder: Status: Acute Qualifiers: Active/Remission status: in partial remission Most recent bipolar episode type: mixed Qualified Code(s): F31.77 - Bipolar disorder, in partial remission, most recent episode mixed (3) Abnormal Papanicolaou smear of cervix with positive human papilloma virus (HPV) test: Status: Acute Additional Plan Pap LGSIL/Other high Risk HPV positive on 01/17/2025 HPV Vaccinated/ age 19/ recommend repeat Pap/HPV if desires in 6 to 12 months Patient wants to come back in June 2025 for a repeat Pap/ adv to use condoms / partner is 27 and can be vaccinated for HPv as well
[2025-03-29 10:15] VITALS: BP 100/64; PULSE 77; RESP 18; TEMP 36.2; O2SAT 98
== END 2025-03-29 10:20 | disposition home or self-care (01) ==
LOC: HODSOBC 09:52
PROVIDERS: PCP Nurse Practitioner Family; Referring Provider Nurse Practitioner Family; Supervising Provider Obstetrics & Gynecology; Visit Provider Obstetrics & Gynecology
DX: R87.810 Cervical high risk human papillomavirus (HPV) DNA test positive (principal); R87.612 Low grade squamous intraepithelial lesion on cytologic smear of cervix (LGSIL); F12.10 Cannabis abuse, uncomplicated; F31.9 Bipolar disorder, unspecified; Z91.0110 Allergy to milk products, unspecified; Z91.018 Allergy to other foods
CPT/HCPCS: 99213; G0463